=== PATIENT | male | born 1935 | race Caucasian/White ===

== ENCOUNTER 2019-03-11 09:00 | Observation (INO) | payer MEDICARE, SELFPAY ==
[2019-03-11] VITALS (10 sets, daily range): BP systolic 130–179; BP diastolic 72–88; PULSE 52–78; RESP 15–16; TEMP 36.5–37; O2SAT 9–98; BMI 22.8; BMI 22.4
--- NOTE | 2019-03-11 09:06 | RAD_ITS ---
STUDY: X-RAY CHEST REASON FOR EXAM: Male, 83 years old. Chest pressure TECHNIQUE: AP COMPARISON: 10/01/2015 FINDINGS: EKG leads project over the chest. Sternal wires and mitral valve implant noted. The lungs are clear and expanded. There is no demonstrated pleural abnormality. Normal size heart. Normal mediastinum and brittany. Normal visualized pulmonary arteries. There is atherosclerotic calcification of the aortic arch with tortuosity. There is demineralization of the osseous structures. There is degenerative osteoarthritis of the bilateral shoulders. There is no demonstrated abnormality of the visualized soft tissue structures of the upper abdomen. RAD/Chest 1 View (Portable) IMPRESSION: 1. Nonacute portable x-ray examination of the chest. Electronically Signed: Yifan You MD at 9:33 EDT , Service support ,
--- NOTE | 2019-03-11 09:06 | EKG12_ITS ---
Test Reason : CP Blood Pressure : / mmHG Vent. Rate : 073 BPM Atrial Rate : 073 BPM P-R Int : 152 ms QRS Dur : 098 ms QT Int : 438 ms P-R-T Axes : 080 -30 045 degrees QTc Int : 482 ms Sinus rhythm with frequent and consecutive Premature ventricular complexes Left axis deviation Incomplete right bundle branch block Prolonged QT Abnormal ECG Confirmed by BREE COLE, AUSTEN ([id number]), food editor JAZMYNE CAROLINA ([id number]) on 03/13/2019 2:02:46 PM Referred By: CHARLES Confirmed By:AUSTEN GIRON MD
[2019-03-11] MEDS: 0.9% Normal Saline 1,000 ML 15 ML IV (09:23)
[2019-03-11 09:36] LABS: Absolute Lymphocyte Count 1.35 X10^3/ul (0.83-4.51); Absolute Neutrophil Count 2.5 X10^3/uL (2.0-7.7); Basophil# 0.03 X10^3/uL; Basophil% 0.7 % (0-1); Eosinophil# 0.06 X10^3/uL; Eosinophils% 1.3 % (0-5); Hematocrit 43.4 % (40-54); Hemoglobin 15.2 g/dl (13.0-16.5); Lymphocyte # 1.35 X10^3/ul (4.0); Lymphocyte % 29.9 % (19-41); Mean Corpuscular Hgb 32.5 pg (27.0-32.0); Mean Corpuscular Volume 92.9 fL (80-94); Mean Platelet Vol. 11.3 fl (6.2-12.0); Monocyte# 0.57 X10^3/uL; Monocyte% 12.6 % (0-10); Neutrophil % 55.5 % (47-70); POSITIVE COUNT NO; POSITIVE DIFFERENTIAL NO; POSITIVE MORPHOLOGY NO; Platelet Count 218 K/mm3 (150-450); RBC Distribution Width CV 13.2 % (11.6-14.6); RBC Distribution Width SD 44.4 fl (35.1-43.9); Red Blood Count 4.67 M/mm3 (4.6-6.2); White Blood Count 4.5 K/mm3 (4.4-11.0)
[2019-03-11] MEDS: Morphine 4 MG/ML Syringe IV (09:42)
[2019-03-11] MEDS: Ondansetron ODT 4 MG Tablet PO (09:43)
[2019-03-11] MEDS: Lisinopril 20 MG Tablet PO (09:44)
[2019-03-11 09:54] LABS: Anion Gap 3 (5-15); BUN 14 mg/dL (7-18); BUN/Creat Ratio 14.9 RATIO (10-20); Calcium,Total 8.9 mg/dL (8.5-10.1); Chloride 107 mmol/L (98-107); Creatinine, Serum 0.94 mg/dL (0.70-1.30); EST Glomerular Filtration Rate 82 mL/min (>60); Est Glom Filt Rate - Afr Amer 99 mL/min (>60); Estimated Creatinine Clearance 55.62 ml/min; Glucose 88 mg/dL (74-106); Potassium 3.5 mmol/L (3.5-5.1); Sodium Level 139 mmol/L (136-145)
[2019-03-11 10:05] LABS: BNP,B-Type NATRIURETIC PEPTIDE 136.9 pg/mL (0-100)
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
--- NOTE | 2019-03-11 10:10 | NURSING ---
DR AKIKO VU
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
--- NOTE | 2019-03-11 10:16 | NURSING ---
PCU KITKIRSTEN OBS CP, POORLY CONTROLLED HYPERTENSION
--- NOTE | 2019-03-11 11:52 | EKG12_ITS ---
Test Reason : Blood Pressure : / mmHG Vent. Rate : 055 BPM Atrial Rate : 055 BPM P-R Int : 174 ms QRS Dur : 096 ms QT Int : 490 ms P-R-T Axes : 058 -23 037 degrees QTc Int : 468 ms Sinus bradycardia Nonspecific T wave abnormality Confirmed by DORY COLE, MARIFER ([id number]), brands editor STACY ZELAYA ([id number]) on 03/15/2019 1:08:05 PM Referred By: LINDA Confirmed By:MARIFER CONNORS MD
[2019-03-11] MEDS: Aspirin 81 MG TAB.CHEW 324 MG PO (14:06)
[2019-03-12] VITALS (7 sets, daily range): BP systolic 145–162; BP diastolic 75–92; PULSE 49–74; RESP 16–18; TEMP 36.5–36.6; O2SAT 95–99
[2019-03-12] MEDS: Aspirin E.C. 81 MG Tablet PO (05:01)
[2019-03-12] MEDS: Clopidogrel Bisulfate 75 MG Tablet PO (05:01)
[2019-03-12] MEDS: Lisinopril 20 MG Tablet PO (05:01)
--- NOTE | 2019-03-12 05:09 | EKG12_ITS ---
Test Reason : AM EKG Blood Pressure : / mmHG Vent. Rate : 050 BPM Atrial Rate : 050 BPM P-R Int : 166 ms QRS Dur : 100 ms QT Int : 496 ms P-R-T Axes : 053 -36 033 degrees QTc Int : 452 ms Sinus bradycardia with Premature atrial complexes Left axis deviation Incomplete right bundle branch block Abnormal ECG Confirmed by DORY COLE, MARIFER ([id number]), newspaper managing editor STACY ZELAYA ([id number]) on 03/15/2019 1:02:14 PM Referred By: DR WHARTON Confirmed By:MARIFER CONNORS MD
--- NOTE | 2019-03-12 05:55 | ECHOCS_ITS ---
Reason For Study: Chest Pain Procedure This was a 2D Doppler, Color Flow transthoracic echocardiogram. The study was technically difficult. Contrast injection was performed. Exam performed portable in patient room. Left Ventricle Normal LV size. Left ventricular systolic function is normal. The estimated ejection fraction is 55 %. Stage 2 diastolic dysfunction. No regional wall motion abnormalities noted. Right Ventricle Normal size and thickness. Normal systolic function. Atria Normal left atrium. Normal right atrium. Bubble contrast study negative for right to left interatrial shunt. Mitral Valve Normal mitral valve. Tricuspid Valve Normal tricuspid valve. Aortic Valve Trisinus/trileaflet aortic valve. Pulmonic Valve Normal pulmonic valve. Great Vessels Normal aortic root. The pulmonary artery is normal size. Normal inferior vena cava. Pericardium/Pleural No pericardial effusion. Medication Diluted definity 3ml given slow IV push to enhance endocardial definition. Performed a rapid injection of agitated mix of 9 cc saline and 1cc air to assess for atrial septal defect. MMode/2D Measurements & Calculations Ao root diam: 3.3 cm LAV(MOD-sp4): 70.8 ml LA A4 area: 20.2 cm2 RA A4 area: 15.7 cm2 Time Measurements MV dec time: 0.30 sec Doppler Measurements & Calculations MV E max andrew: 87.1 cm/sec Med Peak E' Andrew: 5.9 cm/sec MV V2 max: 105.6 cm/sec MV A max andrew: 73.0 cm/sec E/E' med: 14.7 MV max P.5 mmHg MV E/A: 1.2 MV V2 mean: 56.4 cm/sec MV mean P.5 mmHg MV V2 VTI: 40.5 cm MV P1/2t max andrew: 105.6 cm/sec Ao V2 max: 114.3 cm/sec LV V1 max: 96.7 cm/sec MV P1/2t: 69.6 msec Ao max P.2 mmHg LV V1 max P.7 mmHg MV dec slope: 444.1 cm/sec2 MVA(P1/2t): 3.2 cm2 MR max andrew: 313.7 cm/sec PA V2 max: 121.3 cm/sec MR max P.4 mmHg Interpretation Summary Normal LV size. Left ventricular systolic function is normal. The estimated ejection fraction is 55 %. Stage 2 diastolic dysfunction. Ordering Physician: Adarsh Fink Referring Physician: MUNIRA Smith M.D. Performed By: Wiliam Ackerman RCS
[2019-03-12 06:40] LABS: Anion Gap 5 (5-15); BUN 20 mg/dL (7-18); BUN/Creat Ratio 20.7 RATIO (10-20); Calcium,Total 8.5 mg/dL (8.5-10.1); Chloride 108 mmol/L (98-107); Creatinine, Serum 0.97 mg/dL (0.70-1.30); EST Glomerular Filtration Rate 79 mL/min (>60); Est Glom Filt Rate - Afr Amer 96 mL/min (>60); Estimated Creatinine Clearance 53.26 ml/min; Glucose 87 mg/dL (74-106); Magnesium 2.2 mg/dL (1.6-2.6); Potassium 4.1 mmol/L (3.5-5.1); Sodium Level 142 mmol/L (136-145)
[2019-03-12 06:51] LABS: Hemoglobin 13.8 g/dl (13.0-16.5); Mean Corp Hgb Conc 34.5 g/gl (32-36); Mean Corpuscular Hgb 32.3 pg (27.0-32.0); Mean Corpuscular Volume 93.7 fL (80-94); Mean Platelet Vol. 11.2 fl (6.2-12.0); Platelet Count 199 K/mm3 (150-450); RBC Distribution Width CV 13.2 % (11.6-14.6); RBC Distribution Width SD 45.2 fl (35.1-43.9); Red Blood Count 4.27 M/mm3 (4.6-6.2)
[2019-03-12 06:54] LABS: Scan Indicated on CBC? Y/N NO
[2019-03-12 06:55] LABS: International Normalized Ratio 1.1; Prothrombin Time (Protime)PT. 14.2 SECONDS (11.7-14.9)
[2019-03-12 06:56] LABS: Partial Thromboplast Time 32.6 Seconds (24.1-36.2)
--- NOTE | 2019-03-12 09:02 | STRESSREP ---
Stress Test Report Exercise myocardial perfusion stress test. 83-year-old male with a history of chest pain. Stress protocol: Resting EKG demonstrates normal sinus rhythm with a rate of 58 bpm premature ventricular complexes noted resting blood pressures 182/84 mmHg. The patient exercised according to regular Kain protocol for total duration of 4 minutes patient completed 1 minute into stage II of the Kain protocol the maximum heart rate attained was 130 bpm which was 93% of maximum predicted heart rate and maximum workload was 5.8 metabolic equivalents. The patient maintained sinus rhythm throughout the recording. There were frequent premature ventricular complexes noted. At rest there were no ST or T wave changes noted to suggest ischemia. There was one episode of ventricular triplet noted as well as 2 episodes of ventricular couplets present. During recovery the patient subsequently developed a right bundle branch block patent which subsequently normalized. The patient did experience moderate dyspnea. No chest pain was noted. The resting blood pressure was 182/84 with a peak blood pressure 194/80 mmHg Myocardial perfusion protocol. 11.4 mCi of technetium 99m sestamibi was injected at rest. The patient exercised according to regular Kain protocol for 4 minutes. At peak exercise 32.8 mCi of technetium 99m sestamibi was injected stress images were obtained stress and rest images were reconstructed and compared in the short axis vertical and horizontal long axis. Gated images were also obtained Perfusion SPECT analysis: Review of the stress images demonstrate normal uptake of tracer noted in all areas of the myocardium. The resting images similar demonstrate normal uptake of tracer noted in all areas of myocardium. No areas of reversibility are noted suggest ischemia no previous infarct is noted. Gated SPECT analysis: The gated ejection fraction is noted to be 50%. Conclusion: Normal exercise myocardial perfusion stress test with no evidence of ischemia at a moderate workload. Low normal ejection fraction. Ventricular dysrhythmias noted. Asymptomatic.
[2019-03-12] MEDS: Enoxaparin 40 MG/0.4 ML Syringe SC (09:43)
[2019-03-12] MEDS: Carvedilol 6.25 MG Tablet PO (09:43)
--- NOTE | 2019-03-12 15:44 | DCINST_ITS ---
- Discharge Diagnoses Current Active Problems: Current Active and Chronic Problems Accelerated hypertension (Acute) Chest pain (Acute) S/P CABG x 2 (Chronic) Status post mitral valve annuloplasty (Chronic) You will use the following diet at home:: No restrictions Your food should be the consistency of: Regular Your liquids should be the consistency of: Regular/Thin Discharge Activity: Return to Normal Activity Weight Bearing Status: Full weight bearing Allergies/Adverse Reactions: Allergies Iodinated Contrast- Oral and IV Dye [Iodinated Contrast Media - IV Dye] Allergy (Verified 03/11/19 09:04) Swelling Medications to take at Discharge Lisinopril 20 mg PO DAILY 03/11/19 Primary Care Physician: Tristan Smith III, MD [Primary Care Provider] - Please follow up with your Primary Care Physician in: in 1-2 weeks Test Results: Test results from this visit will be discussed in further detail at your follow- up appointment, if applicable.
--- NOTE | 2019-03-14 18:11 | DS.PCM_ITS ---
Discharge Date and Diagnosis Date of Admission: 03/11/19 Date of Discharge: 03/12/19 - Primary Discharge Diagnosis #1 musculoskeletal chest pain #2 coronary artery disease #3 essential hypertension #4 noncompliance with medical regimen #5 valvular heart disease-mitral valve annuloplasty history - Secondary Discharge Diagnosis Chronic Problems S/P CABG x 2 (Chronic) Status post mitral valve annuloplasty (Chronic) Hypertension (Chronic) CAD (coronary artery disease) (Chronic) Hospital Course and Treatment Operations: None Procedures: 2-D Echocardiogram, Nuclear stress test Summary of Care Provided: The patient is a 83 year old M seen in the emergency room at [facility] with chief complaint of chest pain. He also had been diagnosed with hypertension was given medication but is not taking it because he did not want to take medications. Patient had chest discomfort which he describes as chest pressure, he took his blood pressure and it was elevated so he came to the emergency room for evaluation. Evaluation in the emergency room included a chest x-ray which was unremarkable, EKG showed no evidence of ischemic changes, and labs were unremarkable. Patient's blood pressure in triage was 179/88. Patient was placed in observation status on PCU, cardiac enzymes are cycled and these were negative, patient underwent a nuclear stress test which showed no evidence of reversible ischemia. Patient had an echocardiogram performed which showed a normal ejection fraction and no evidence of valvular disease. On 03/12/2019, patient was seen and examined: On examination he appeared in good health and spirits. Vital signs as documented. Skin warm and dry and without overt rashes. Neck without JVD. Lungs clear. Heart exam notable for regular rhythm, normal sounds and absence of murmurs, rubs or gallops. Abdomen unremarkable and without evidence of organomegaly, masses, or abdominal aortic enlargement. Extremities nonedematous. Neuro: Cranial nerves II through XII are grossly intact, no focal motor deficits were noted, sensation to light touch and pinprick intact. Psych: Patient is alert and oriented x3, he does not appear anxious or depressed On 03/12/2019, patient was seen and examined and felt to be in stable condition for discharge home, he was cautioned to resume his blood pressure medication and follow-up with his PCP. - Physical Exam Vital Signs Temp Pulse Resp BP Pulse Ox 97.8 F 62 18 162/92 H 98 03/12/19 15:56 03/12/19 15:56 03/12/19 15:56 03/12/19 15:56 03/12/19 15:56 Oxygen Delivery Method Room Air Weight: 63.049 kg Body Mass Index (BMI) 22.4 Intake and Output for Last 24 Hours 03/12/19 03/13/19 03/14/19 23:59 23:59 23:59 Intake Total 790 / 790 Balance 790 / 790 Discharge Activity: Return to Normal Activity Weight Bearing Status: Full weight bearing Home Medications: Medications to take at Discharge Lisinopril 20 mg PO DAILY 03/11/19 Primary Care Physician: Tristan Smith III, MD [Primary Care Provider] - Please follow up with your Primary Care Physician in: in 1-2 weeks Disposition: Home Minutes spent on discharge:: 25 Patient Condition:: Stable Medical Necessity - Tobacco Use Smoking Status: Former smoker Meaningful Use Info Meaningful Use Diagnoses (Choose all that apply): None applicable Code Visit OBSV E&M: 26967 Observation care discharge
== END 2019-03-12 15:45 | disposition home or self-care (01) ==
LOC: ED 09:43 → PCU 10:58
PROVIDERS: Admitting Provider Internal Medicine; Emergency Provider Emergency Medicine; Family Provider Family Medicine; PCP Family Medicine; Visit Provider Internal Medicine
DX: R07.89 Other chest pain (principal); I10 Essential (primary) hypertension; I25.10 Atherosclerotic heart disease of native coronary artery without angina pectoris; Z87.891 Personal history of nicotine dependence; Z95.1 Presence of aortocoronary bypass graft; I48.0 Paroxysmal atrial fibrillation; Z91.19 Patient's noncompliance with other medical treatment and regimen; Z79.899 Other long term (current) drug therapy; I45.81 Long QT syndrome; I45.10 Unspecified right bundle-branch block; R06.00 Dyspnea, unspecified
CPT/HCPCS: 36415; 71045; 78452; 80048; 83735; 83880; 84484; 85025; 85027; 85610; 85730; 93005; 93017; 93306; 96372; 96374; 99218; 99285; A9500; J7030; Q9957; A4216; C8929; G0378

== ENCOUNTER → 2022-09-24 | Outpatient (CLI) | payer MEDICARE, SELFPAY ==
[2022-09-24 11:59] LABS: Bacteria 0 SEEN /hpf (None Seen); Mucous, Urine 0 SEEN /hpf (<or=2+); Red Blood Cells-Urine 0 SEEN /hpf (0-5); Squamous Epithelial Cells - UA 0 SEEN /hpf (0-5)
[2022-09-24 15:29] LABS: Absolute Lymphocyte Count 1.08 X10^3/uL (0.83-4.51); Absolute Neutrophil Count 3.6 X10^3/uL (2.0-7.7); Basophil# 0.04 X10^3/uL; Basophil% 0.7 % (0-1); Eosinophil# 0.04 X10^3/uL; Eosinophils% 0.7 % (0-5); Hematocrit 41.3 % (40-54); Hemoglobin 13.7 g/dL (13.0-16.5); Lymphocyte # 1.08 X10^3/ul (0.83-4.51); Lymphocyte % 19.8 % (19-41); Mean Corp Hgb Conc 33.2 g/dL (32-36); Mean Corpuscular Volume 96.5 fL (80-94); Mean Platelet Vol. 11.9 fl (6.2-12.0); Monocyte# 0.65 X10^3/uL; Monocyte% 11.9 % (0-10); NRBC Flagged by Analyzer 0 % (0-5); Neutrophil # 3.63 X10^3/uL (2.7-7.7); Neutrophil % 66.7 % (47-70); Platelet Count 219 K/mm3 (150-450); RBC Distribution Width CV 13.7 % (11.6-14.6); RBC Distribution Width SD 48.7 fl (35.1-43.9); Red Blood Count 4.28 M/mm3 (4.6-6.2); White Blood Count 5.5 K/mm3 (4.4-11.0)
[2022-09-24 16:01] LABS: Color, Urine Yellow (Yellow); Glucose, Dipstick Normal (Normal); Ketone-Dipstick 15 mg/dl (Negative); Leukocyte Esterase-Dipstick 25 /ul (Negative); Nitrite-Dipstick Negative (Negative); Occult Blood-Urine Negative /ul (Negative); Protein-Dipstick Negative (Negative); Specific Gravity, Urine 1.015 (1.002-1.030); Urine Bilirubin Dipstick Negative (Negative); Urine Clarity Clear (Clear); Urine Urobilinogen Normal (Normal); Urine pH 6.5 (5.0 - 8.0)
[2022-09-24 16:16] LABS: ALB/GLOB Ratio 1.1 RATIO (0.9-2.4); AST(SGOT) 21 U/L (15-37); Alanine Aminotransfer ALT/SGPT 25 U/L (16-61); Albumin, Serum 3.6 g/dL (3.2-5.0); Alkaline Phosphatase 80 U/L (45-117); Anion Gap 6 (5-15); BUN 23 mg/dL (7-18); BUN/Creat Ratio 22.1 RATIO (10-20); Chloride 106 mmol/L (98-107); Cholesterol 160 mg/dL (200); Creatinine, Serum 1.04 mg/dL (0.70-1.30); EST Glomerular Filtration Rate 72 mL/min (>60); Est Glom Filt Rate - Afr Amer 87 mL/min (>60); Globulin 3.4 g/dL (2.2-4.2); Glucose 80 mg/dL (74-106); High Density Lipoprotein 62 mg/dL; Magnesium 2.2 mg/dL (1.6-2.6); Potassium 4.3 mmol/L (3.5-5.1); Sodium Level 141 mmol/L (136-145); T4 Free Direct 0.97 ng/dL (0.76-1.46); Triglycerides 87 mg/dL; Very Low Density Lipoprotein 17 mg/dL (5-40)
[2022-09-24 17:54] LABS: White Blood Cells 0-5 SEEN /hpf (0-5)
== END | disposition home or self-care (01) ==
LOC: MFPLAB 11:57
PROVIDERS: PCP Family Medicine; Referring Provider Family Medicine; Visit Provider Family Medicine
DX: I10 Essential (primary) hypertension (principal); E04.1 Nontoxic single thyroid nodule
CPT/HCPCS: 36415; 80053; 80061; 81001; 83735; 84439; 84443; 85025

== ENCOUNTER → 2022-09-29 | Outpatient (CLI) | payer MEDICARE, SELFPAY ==
--- NOTE | 2022-09-29 12:51 | US_ITS ---
STUDY: THYROID ULTRASOUND REASON FOR EXAM: Male, 86 years old. THYROID NODULE felt by doctor -- no previous TECHNIQUE: Ultrasound evaluation of the thyroid was performed with real-time and static khan-scale imaging. COMPARISON: None. FINDINGS: RIGHT LOBE: The right lobe of the thyroid gland measures 4.6 cm x 1.8 sign by 1.4 cm. There is a homogeneous echotexture. There are no demonstrated solid, cystic or complex lesions. LEFT LOBE: The left lobe of the thyroid gland measures 4.3 cm x 1.6 cm x 1.6 cm. There is a homogeneous echotexture. There are no demonstrated solid, cystic or complex lesions. ISTHMUS: The isthmus measures 3 mm. The regional lymph nodes are normal. US/Thyroid IMPRESSION: Normal ultrasound examination of the thyroid. Electronically Signed: Aj Canchola MD at 14:33 EST ,
== END | disposition home or self-care (01) ==
PROVIDERS: PCP Family Medicine; Referring Provider Family Medicine; Visit Provider Family Medicine
DX: E04.1 Nontoxic single thyroid nodule (principal); R06.02 Shortness of breath
CPT/HCPCS: 76536

== ENCOUNTER → 2022-10-06 | Outpatient (CLI) | payer MEDICARE, SELFPAY ==
--- NOTE | 2022-10-06 07:03 | ECHOD_ITS ---
Reason For Study: SOB Procedure This was a 2D Doppler, Color Flow transthoracic echocardiogram. Exam performed in department. Left Ventricle Normal LV size. The estimated ejection fraction is 25 %. Moderately severe global left ventricular systolic dysfunction. Stage 3 diastolic dysfunction. Right Ventricle Normal RV size. Normal systolic function. Atria The left atrium is moderately enlarged. The right atrium is mildly enlarged. Mitral Valve Bileaflet diffuse mitral valve thickening. Mild-Moderate (1-2+) mitral valve insufficiency. Status post mitral valve repair with annuloplasty ring. Tricuspid Valve Normal tricuspid valve. Pulmonary artery systolic pressure is 60 mmHg. Moderate pulmonary hypertension. Aortic Valve Trisinus/trileaflet aortic valve. Mild focal aortic valve calcification. Mild (1+) aortic valve insufficiency. Pulmonic Valve Normal pulmonic valve. Great Vessels Normal aortic root. The pulmonary artery is normal size. Normal inferior vena cava. Pericardium/Pleural No pericardial effusion. MMode/2D Measurements & Calculations LVIDd: 5.4 cm IVSd: 1.1 cm LVOT diam: 2.1 cm LVIDs: 4.8 cm LVPWd: 1.1 cm LVOT area: 3.4 cm2 RVDd: 3.3 cm FS: 11.0 % Ao root diam: 3.0 cm LAV(MOD-sp4): 71.0 ml LVAd ap4: 36.8 cm2 LVLd ap4: 8.6 cm EDV(MOD-sp4): 128.2 ml EDV(sp4-el): 133.9 ml LVAs ap4: 23.9 cm2 LVLs ap4: 7.0 cm ESV(MOD-sp4): 68.9 ml ESV(sp4-el): 69.6 ml EF(MOD-sp4): 46.3 % EF(sp4-el): 48.0 % SV(MOD-sp4): 59.3 ml SV(sp4-el): 64.3 ml LA A4 area: 21.2 cm2 LA dimension(2D): 4.7 cm RA A4 area: 17.4 cm2 Time Measurements MV dec time: 0.19 sec Doppler Measurements & Calculations MV E max andrew: 125.6 cm/sec Lat Peak E' Andrew: 5.9 cm/sec Med Peak E' Andrew: 5.0 cm/sec MV A max andrew: 39.8 cm/sec E/E' lat: 21.4 E/E' med: 24.9 MV E/A: 3.2 MV V2 max: 122.7 cm/sec Ao V2 max: 101.3 cm/sec MV max P.0 mmHg MV dec slope: 681.6 cm/sec2 Ao max P.4 mmHg MV V2 mean: 67.2 cm/sec Ao V2 mean: 69.0 cm/sec MV mean P.1 mmHg Ao mean P.3 mmHg MV V2 VTI: 35.5 cm Ao V2 VTI: 20.2 cm AV (velocity ratio): 0.72 MVA(VTI): 1.4 cm2 GARCIA(I,D): 2.5 cm2 GARCIA(V,D): 2.5 cm2 LV V1 max: 74.3 cm/sec MR max andrew: 491.8 cm/sec SV(LVOT): 50.3 ml LV V1 max P.2 mmHg MR max P.8 mmHg LV V1 mean P.3 mmHg MR mean andrew: 381.3 cm/sec LV V1 mean: 53.4 cm/sec MR mean P.5 mmHg LV V1 VTI: 14.6 cm MR VTI: 180.1 cm TR max andrew: 366.5 cm/sec TR max P.7 mmHg ECHO/Echo Complete Interpretation Summary Normal LV size. The estimated ejection fraction is 25 %. Moderately severe global left ventricular systolic dysfunction. Stage 3 diastolic dysfunction. Mild-Moderate (1-2+) mitral valve insufficiency. Status post mitral valve repair with annuloplasty ring. Mild (1+) aortic valve insufficiency. Compared to previous study, the left ventricular systolic function has worsened .. Ordering Physician: Vinod Mejia Referring Physician: Vinod Mejia Performed By: Elena Zavala RCS
--- NOTE | 2022-10-06 16:33 | STRESSREP_ITS ---
Stress Test Report Exercise myocardial perfusion stress test. 86-year-old man with a history of abnormal EKG Stress protocol: Resting EKG demonstrates normal sinus rhythm with a rate of 63 bpm and frequent premature ventricular complexes: Resting blood pressure is 142/82 mmHg. The patient exercised according to the regular Kain protocol for a total duration of 3 minutes and 46 seconds attaining a maximum heart rate of 114 bpm which was 83% of maximum predicted heart rate; the maximum workload was 6.4 metabolic equivalents. At rest there were no ST or T wave changes noted to suggest ischemia and at peak exercise upsloping ST changes only were noted which did not meet the criteria for ischemia. Frequent premature ventricular complexes were noted with one episode of couplet activity noted and one triplet activity noted. No clinical angina was noted the test was terminated due to the target heart rate being achieved/fatigue. The peak blood pressure was 162/80 mmHg. Rate- pressure product was 17,500. Myocardial perfusion protocol. 11.7 mCi of technetium 99m sestamibi was injected at rest. The patient exercised according to regular Kain protocol for total duration of 3 minutes and 46 seconds and at peak exercise 33.3 mCi of technetium 99m sestamibi was injected stress images were obtained stress and rest images were reconstructed in comparing the short axis vertical long and horizontal long axis. Gated images were also obtained. Perfusion SPECT analysis: Review of the stress images demonstrate normal uptake of tracer noted in all areas of the myocardium. The resting images similarly demonstrate normal uptake of tracer noted in all areas of the myocardium. No areas of reversibility are noted to suggest ischemia no previous infarct was noted. Gated SPECT analysis: The gated ejection fraction is 38%. Conclusion: Normal exercise myocardial perfusion stress test at a low to moderate workload. The sensitivity of the workload may affect the sensitivity for detection of ischemia. Reduced ejection fraction. Frequent premature ventricular complexes noted
== END | disposition home or self-care (01) ==
PROVIDERS: PCP Family Medicine; Visit Provider Family Medicine
DX: R94.31 Abnormal electrocardiogram [ECG] [EKG] (principal); R06.02 Shortness of breath; E04.1 Nontoxic single thyroid nodule
CPT/HCPCS: 78452; 93017; 93306; A9500; A4216

== ENCOUNTER → 2022-11-03 | Outpatient (CLI) | payer MEDICARE, SELFPAY ==
--- NOTE | 2022-11-03 08:57 | MRI_ITS ---
HISTORY: DYSDIADOCHOKINESIA. TECHNIQUE: Multiplanar and multisequence MR images of the brain were obtained before and after the intravenous administration of 13 mL Dotarem. 343 images. COMPARISON: None. FINDINGS: BRAIN PARENCHYMA: Mild foci and small zones of increased T2 FLAIR signal in the bilateral central white matter. No enhancing lesion in the brain parenchyma. 4 mm neuroglial cyst in the medial temporal lobe adjacent to the left temporal horn. No abnormal focus of restricted diffusion. No acute intracranial hemorrhage identified. CSF SPACES: Mild generalized volume loss. No significant midline shift or other mass effect.No extra-axial fluid collection. VASCULAR SYSTEM: Major intracranial flow voids are maintained. PARANASAL SINUSES AND MASTOID AIR CELLS: No significant air fluid levels. Mild mucosal thickening of the ethmoid air cells. ORBITS: Symmetric contents. MRI/Brain W/WO Contrast IMPRESSION: No evidence for enhancing intracranial mass or acute infarct. Mild chronic involutional and white matter changes. Electronically Signed: Mariangel Gonzalez MD at 10:14 EST ,
[2022-11-03 09:36] LABS: CREATININE FINGERSTICK < 0.9 mg/dL (0.70-1.30); EGFR FINGERSTICK > 60.0000 mL/min (>60)
== END | disposition home or self-care (01) ==
PROVIDERS: PCP Family Medicine; Referring Provider Family Medicine; Visit Provider Family Medicine
DX: R27.8 Other lack of coordination (principal)
CPT/HCPCS: 70553; A9575

== ENCOUNTER → 2023-02-15 | Outpatient (CLI) | payer MEDICARE, SELFPAY ==
[2023-02-15 15:39] LABS: Absolute Lymphocyte Count 1.37 X10^3/uL (0.83-4.51); Absolute Neutrophil Count 3.6 X10^3/uL (2.0-7.7); Basophil# 0.05 X10^3/uL; Basophil% 0.9 % (0-1); Eosinophil# 0.13 X10^3/uL; Eosinophils% 2.2 % (0-5); Hematocrit 43.9 % (40-54); Hemoglobin 14.4 g/dL (13.0-16.5); Lymphocyte # 1.37 X10^3/ul (0.83-4.51); Lymphocyte % 23.3 % (19-41); Mean Corp Hgb Conc 32.8 g/dL (32-36); Mean Corpuscular Hgb 32.7 pg (27.0-32.0); Mean Corpuscular Volume 99.5 fL (80-94); Mean Platelet Vol. 11.3 fl (6.2-12.0); Monocyte# 0.75 X10^3/uL; Monocyte% 12.8 % (0-10); NRBC Flagged by Analyzer 0 % (0-5); Neutrophil # 3.55 X10^3/uL (2.7-7.7); Neutrophil % 60.5 % (47-70); Platelet Count 229 K/mm3 (150-450); RBC Distribution Width CV 12.8 % (11.6-14.6); RBC Distribution Width SD 47.4 fl (35.1-43.9); Red Blood Count 4.41 M/mm3 (4.6-6.2); White Blood Count 5.9 K/mm3 (4.4-11.0)
[2023-02-15 16:09] LABS: BNP,B-Type NATRIURETIC PEPTIDE 569.3 pg/mL (0-100)
[2023-02-15 16:11] LABS: AST(SGOT) 21 U/L (15-37); Alanine Aminotransfer ALT/SGPT 24 U/L (16-61); Albumin, Serum 3.5 g/dL (3.2-5.0); Alkaline Phosphatase 68 U/L (45-117); Anion Gap 4 (5-15); BUN 20 mg/dL (7-18); BUN/Creat Ratio 19.6 RATIO (10-20); Calcium,Total 8.6 mg/dL (8.5-10.1); Chloride 107 mmol/L (98-107); Cholesterol 161 mg/dL (200); Creatinine, Serum 1.02 mg/dL (0.70-1.30); EST Glomerular Filtration Rate 74 mL/min (>60); Est Glom Filt Rate - Afr Amer 89 mL/min (>60); Globulin 3.4 g/dL (2.2-4.2); Glucose 83 mg/dL (74-106); High Density Lipoprotein 58 mg/dL; Potassium 4.3 mmol/L (3.5-5.1); Protein, Total 6.9 g/dL (6.4-8.2); Sodium Level 139 mmol/L (136-145); Triglycerides 91 mg/dL; Very Low Density Lipoprotein 18 mg/dL (5-40)
== END | disposition home or self-care (01) ==
LOC: MFPLAB 12:33
PROVIDERS: PCP Family Medicine; Visit Provider Family Medicine
DX: I50.20 Unspecified systolic (congestive) heart failure (principal); I25.10 Atherosclerotic heart disease of native coronary artery without angina pectoris
CPT/HCPCS: 36415; 80053; 80061; 83880; 85025

== ENCOUNTER → 2023-02-18 | Outpatient (CLI) | payer MEDICARE, SELFPAY ==
--- NOTE | 2023-02-18 07:56 | ECHOD_ITS ---
Reason For Study: Heart Failure Procedure This was a 2D Doppler, Color Flow transthoracic echocardiogram. Exam performed in department. Left Ventricle Normal LV size. The estimated ejection fraction is 50 %. Unable to assess diastolic dysfunction. Mild septal hypokinesis. Right Ventricle Normal RV size. Normal systolic function. Atria The left atrium is mildly enlarged. Normal right atrium. No doppler evidence for ASD. Mitral Valve There is moderate mitral annular calcification. There is no mitral valve stenosis. Mild (1+) mitral valve insufficiency. Tricuspid Valve There is no tricuspid stenosis. Trivial tricuspid valve insufficiency. Pulmonary artery systolic pressure is 45 mmHg. Aortic Valve Trisinus/trileaflet aortic valve. Mild diffuse aortic valve thickening. There is no aortic stenosis. Mild (1+) aortic valve insufficiency. Pulmonic Valve There is no pulmonic valvular stenosis. No pulmonic valve insufficiency. MMode/2D Measurements & Calculations LVIDd: 6.1 cm IVSd: 0.92 cm LVOT diam: 2.0 cm LVIDs: 5.3 cm LVPWd: 0.92 cm LVOT area: 3.3 cm2 RVDd: 4.4 cm FS: 13.8 % Ao root diam: 3.3 cm LAV(MOD-sp4): 66.6 ml LA dimension: 4.3 cm LVAd ap4: 33.9 cm2 LVLd ap4: 8.5 cm EDV(MOD-sp4): 111.4 ml EDV(sp4-el): 114.0 ml LVAs ap4: 25.6 cm2 LVLs ap4: 7.3 cm ESV(MOD-sp4): 75.3 ml ESV(sp4-el): 75.9 ml EF(MOD-sp4): 32.5 % EF(sp4-el): 33.4 % SV(MOD-sp4): 36.2 ml SV(sp4-el): 38.0 ml LA A4 area: 21.0 cm2 RA A4 area: 19.8 cm2 Time Measurements MV dec time: 0.28 sec Doppler Measurements & Calculations MV E max andrew: 109.5 cm/sec Lat Peak E' Andrew: 8.5 cm/sec Med Peak E' Andrew: 6.2 cm/sec MV A max andrew: 41.7 cm/sec E/E' lat: 12.8 E/E' med: 17.7 MV E/A: 2.6 MV V2 max: 124.1 cm/sec MV P1/2t max andrew: 124.9 cm/sec Ao V2 max: 151.6 cm/sec MV max P.2 mmHg MV P1/2t: 82.2 msec Ao max P.3 mmHg MV V2 mean: 58.5 cm/sec Ao V2 mean: 102.4 cm/sec MV mean P.7 mmHg MV dec slope: 445.0 cm/sec2 Ao mean P.9 mmHg MV V2 VTI: 33.2 cm MVA(P1/2t): 2.7 cm2 Ao V2 VTI: 34.3 cm AV (velocity ratio): 0.62 MVA(VTI): 2.1 cm2 GARCIA(I,D): 2.0 cm2 GARCIA(V,D): 2.4 cm2 AI max andrew: 313.3 cm/sec LV V1 max: 109.5 cm/sec MR max andrew: 545.6 cm/sec AI max P.5 mmHg LV V1 max P.8 mmHg MR max P.1 mmHg AI dec slope: 156.6 cm/sec2 LV V1 mean P.6 mmHg MR mean andrew: 431.1 cm/sec AI P1/2t: 586.1 msec LV V1 mean: 73.5 cm/sec MR mean P.6 mmHg LV V1 VTI: 21.4 cm MR VTI: 203.6 cm SV(LVOT): 70.1 ml PA V2 max: 123.4 cm/sec TR max andrew: 319.3 cm/sec PA V2 mean: 79.8 cm/sec TR max P.8 mmHg ECHO/Echo Complete Interpretation Summary The estimated ejection fraction is 50 %. Unable to assess diastolic dysfunction. Mild septal hypokinesis Mild (1+) mitral valve insufficiency. Mild (1+) aortic valve insufficiency. Ordering Physician: Vinod Mejia Referring Physician: Vinod Mejia Performed By: Wiliam Ackerman RCS
== END | disposition home or self-care (01) ==
PROVIDERS: PCP Family Medicine; Referring Provider Family Medicine; Visit Provider Family Medicine
DX: R06.02 Shortness of breath (principal); I50.20 Unspecified systolic (congestive) heart failure
CPT/HCPCS: 93306

== ENCOUNTER → 2023-06-10 | Outpatient (CLI) | payer MEDICARE, SELFPAY ==
[2023-06-10 16:43] LABS: Bacteria 0 SEEN /hpf (None Seen); Mucous, Urine 0 SEEN /hpf (<or=2+); Red Blood Cells-Urine 0 SEEN /hpf (0-5); Squamous Epithelial Cells - UA 0 SEEN /hpf (0-5); White Blood Cells 0 SEEN /hpf (0-5)
[2023-06-10 17:34] LABS: Absolute Neutrophil Count 3.1 X10^3/uL (2.0-7.7); Basophil# 0.04 X10^3/uL; Basophil% 0.7 % (0-1); Eosinophil# 0.09 X10^3/uL; Eosinophils% 1.7 % (0-5); Hemoglobin 13.9 g/dL (13.0-16.5); Lymphocyte % 27.7 % (19-41); Mean Corp Hgb Conc 33.1 g/dL (32-36); Mean Corpuscular Hgb 32.2 pg (27.0-32.0); Mean Corpuscular Volume 97.2 fL (80-94); Mean Platelet Vol. 11.2 fl (6.2-12.0); Monocyte# 0.68 X10^3/uL; Monocyte% 12.5 % (0-10); NRBC Flagged by Analyzer 0 % (0-5); Neutrophil % 57.2 % (47-70); Platelet Count 242 K/mm3 (150-450); RBC Distribution Width CV 13.7 % (11.6-14.6); RBC Distribution Width SD 49.3 fl (35.1-43.9); Red Blood Count 4.32 M/mm3 (4.6-6.2); White Blood Count 5.4 K/mm3 (4.4-11.0)
[2023-06-10 17:36] LABS: Color, Urine Yellow (Yellow); Glucose, Dipstick Normal (Normal); Ketone-Dipstick Negative (Negative); Leukocyte Esterase-Dipstick Negative /ul (Negative); Nitrite-Dipstick Negative (Negative); Occult Blood-Urine Negative /ul (Negative); Protein-Dipstick Negative (Negative); Urine Bilirubin Dipstick Negative (Negative); Urine Clarity Clear (Clear); Urine Urobilinogen Normal (Normal)
[2023-06-10 18:40] LABS: AST(SGOT) 19 U/L (15-37); Alanine Aminotransfer ALT/SGPT 25 U/L (16-61); Albumin, Serum 3.7 g/dL (3.2-5.0); Alkaline Phosphatase 76 U/L (45-117); Anion Gap 7 (5-15); BUN 25 mg/dL (7-18); BUN/Creat Ratio 24.3 RATIO (10-20); Calcium,Total 8.8 mg/dL (8.5-10.1); Chloride 109 mmol/L (98-107); Cholesterol 156 mg/dL (200); Creatinine, Serum 1.03 mg/dL (0.70-1.30); EST Glomerular Filtration Rate 73 mL/min (>60); Est Glom Filt Rate - Afr Amer 88 mL/min (>60); Globulin 3.7 g/dL (2.2-4.2); Glucose 87 mg/dL (74-106); High Density Lipoprotein 57 mg/dL; Magnesium 2.4 mg/dL (1.6-2.6); Potassium 3.8 mmol/L (3.5-5.1); Protein, Total 7.4 g/dL (6.4-8.2); Sodium Level 141 mmol/L (136-145); Thyroid Stim Hormone (TSH) 1.87 uIU/mL (0.358-3.74); Triglycerides 91 mg/dL; Very Low Density Lipoprotein 18 mg/dL (5-40)
== END | disposition home or self-care (01) ==
LOC: MFPLAB 16:37
PROVIDERS: PCP Family Medicine; Visit Provider Family Medicine
DX: I25.10 Atherosclerotic heart disease of native coronary artery without angina pectoris (principal); I48.0 Paroxysmal atrial fibrillation
CPT/HCPCS: 36415; 80053; 80061; 81001; 83735; 84443; 85025

== ENCOUNTER → 2023-09-06 | Outpatient (CLI) | payer MEDICARE, SELFPAY ==
--- OUTSIDE RECORDS SUMMARY | 2023-09-06 12:56 | XMS RPT_ITS | CCD ---
Author Name Unknown Address [id number] [place] [address] Organization [facility] Care Team Providers Care Curing Supervisor Name Role Phone FALGUNI MONROY Unavailable Unavailable FALGUNI MONROY Unavailable Unavailable RONALDO VINSON III Unavailable Unavailable Unavailable Primary Care Provider Unavailabl e Allergies Allergy Classification Reported Allergen(s) Allergy Type Date of Onset Reaction(s) Facility (1 source) Iodine Drug Allergy 09-01-2015 Rash [facility] Medications Completed/Discontinued Medications Medication Drug Class(es) Dates Sig (Normalized) Sig (Original) cyclobenzaprine hydrochloride 10 mg oral tablet (2 sources) Muscle Relaxant Start: 11-17-2019 take 1 tablet by mouth every eight hours as needed cyclobenzaprine (FLEXERIL) 10 mg tablet Take 1 tablet by mouth three times daily as needed for Muscle Spasm. 15 tablet 0 01/26/2021 Active Problems Active Problems Problem Classification Problem Date Documented Date Episodic/Chronic Adjustment disorders (1 source) Mixed anxiety and depressive disorder; Translations: [Adjustment disorder with mixed anxiety and depressed mood] Onset: 09-01-2015 09-01-2015 Chronic Anxiety disorders (1 source) Generalized anxiety disorder; Translations: [Generalized anxiety disorder] Onset: 09-22-2007 09-22-2007 Chronic Cardiac dysrhythmias (1 source) Atrial fibrillation; Translations: [Unspecified atrial fibrillation] Onset: 05-04-2018 05-04-2018 Chronic Coronary atherosclerosis and other heart disease (1 source) Coronary arteriosclerosis; Translations: [Atherosclerotic heart disease of [place] coronary artery without angina pectoris] Onset: 05-04-2018 05-04-2018 Chronic Esophageal disorders (1 source) Gastroesophageal reflux disease; Translations: [Gastro-esophageal reflux disease without esophagitis] Onset: 11-30-2005 11-30-2005 Chronic Essential hypertension (2 sources) Benign essential hypertension; Translations: [Essential (primary) hypertension] Onset: 08-23-2012 08-23-2012 Chronic Heart valve disorders (1 source) History of mitral valve replacement; Translations: [Presence of prosthetic heart valve] Onset: 11-13-2015 09-14-2016 Chronic Hyperplasia of prostate (1 source) Benign prostatic hypertrophy with outflow obstruction; Translations: [Benign prostatic hyperplasia with lower urinary tract symptoms] Onset: 01-15-2010 01-05-2018 Chronic Other connective tissue disease (1 source) History of repair of hip joint; Translations: [Presence of unspecified artificial hip joint] Onset: 05-03-2002 05-04-2018 Chronic Spondylosis; intervertebral disc disorders; other back problems (1 source) Degeneration of lumbar intervertebral disc; Translations: [Other intervertebral disc degeneration, lumbar region] Onset: 02-12-2016 02-12-2016 Chronic Unclassified (1 source) Unknown / UNK(Unknown) Onset: 03-15-2017 Past or Other Problems Problem Classification Problem Date Documented Da te Episodic/Chronic Fracture of neck of femur (hip) (1 source) Closed fracture of trochanter of femur; Translations: [Unspecified trochanteric fracture of unspecified femur, initial encounter for closed fracture] Onset: 05-03-2002 05-04-2018 Episodic Other acquired deformities (1 source) Acquired unequal leg length; Translations: [Unequal limb length (acquired), unspecified site] Onset: 05-03-2002 05-04-2018 Episodic Spondylosis; intervertebral disc disorders; other back problems (2 sources) Brachial neuritis; Translations: [Radiculopathy, cervical region] Onset: 05-03-2002 05-04-2018 Episodic Sprains and strains (1 source) Strain of tendon of medial thigh muscle; Translations: [Strain of adductor muscle, fascia and tendon of unspecified thigh, initial encounter] Onset: 01-05-2018 01-05-2018 Episodic Unclassified (1 source) Z51.81,I10,I25.810 Onset: 03-15-2017 Results Test Name Value Interpretation Reference Range Facil ity Encounters Encounter Date Encounter Type Care Provider Facility Start: 08-24-2023 Telephone encounter Yannick Tovar MD Work Phone: General Surgery Plan of Treatment Date Care Activity Detail Author Start: 05-06-2023 Covid-19 Vaccine ( season) Covid-19 Vaccine ( season) [facility] Start: 05-06-2023 Influenza vaccination Influenza Vacc ine (#1) [facility] Start: 10-05-2022 Diabetes Screening Diabetes Screenin g [facility] Start: 09-05-2022 Advance Directive Discussion Advance Directive Discussion [facility] Start: 10-02-2020 Hepatitis B surface antibody level LDL Cholesterol [facility] Start: 04-29-2019 Urine microalbumin profile DTa P,Tdap,Td Vaccine (2 - Td or Tdap) [facility] Start: 1997 RSV Vaccine (1 - 1-d ose 60+ series) RSV Vaccine (1 - 1-dose 60+ series) [facility] Start: 11-10-1987 Shingrix Vaccine (1 of 2) Lopez grix Vaccine (1 of 2) [facility] Immunizations Immunization Date Immunization Notes Care Provider Fa cility 01-05-2018 pneumococcal conjuga te vaccine, 13 valent Yannick Tovar MD Work Phone: [facility] 09-14-2016 influenza virus vacc ine, unspecified formulation Yannick Tovar MD Work Phone: [facility] 04-28-2009 pneumococcal polysaccharide vaccine, 23 valent Yannick Tovar MD Work Phone: [facility] Work Phone: 04-28-2009 tetanus and diphther ia toxoids, adsorbed, preservative free, for adult use (2 Lf of tetanus toxoid and 2 Lf of diphtheria toxoid) Yannick Tovar MD Work Phone: [facility] Work Phone: Payers Date Payer Category Payer Unknown [id number] 2014 Unknown [employer]IM[employer]IME [employer] HMO POS [id number] 2014-Present [phone] [address] [place] [address] O [id number] Social History Date Type Detail Facility Start: 04-01-2011 Tobacco smoking stat [facility] Never smoked tobacco [facility] Start: 04-01-2011 Tobacco use and exposure Smoke less tobacco non-user [facility] Start: 04-04-2021 Alcohol intake Current non-dr social services assistant of alcohol (finding) [facility] Start: 08-12-2020 End: 04-04-2021 History of Social function [facility] Start: 08-12-2020 End: 04-04-2021 Tobacco use panel [facility] Adult Depression Scr eening Assessment 0 [facility] Start: 1935 Sex Assigned At Not on file [facility] Note 08-24-2023 Telephone Encounter - Keyonna Conley LPN - 08/24/2023 11:41 AM EST Note Date & Type Note Facility 08-24-2023 Miscellaneous Notes Formattin g of this note might be different from the original. Fax received from [facility] asking for Derm pathology. See scanned documents for request. This has been faxed to the office as requested. documented in this encounter [facility] History of Past illness Narrative 06-05-2015 Note Date & Type Note Facility documented as of this encounter (statuses as of 08/25/2023) [facility] Summary Purpose Family History No Family History Records FoundNo Family History Records Found Advance Directives No Advanced Directives Records FoundNo Advanced Directives Records Found Additional Source Comments (unrecognized sect ion and content) No Status Records FoundNo Status Records Found INFORMATION SOURCE (unrecogn ized section and content) DATE CREATED AUTHOR AUTHOR'S ORGANIZ ATION 08/25/2023 [facility] Source Comments (unrecognize d section and content) In the event this informatio n is protected by the Federal Confidentiality of Alcohol and Drug Abuse Patient Records regulations: The Federal rules restrict any use of the information to criminally investigate or prosecute any alcohol or drug abuse patient.[facility] Reason for Visit (unrecogniz ed section and content) FOR RECORDS PERTAINING TO PATIENTS WHO ARE OR HAVE BEEN ENROLLED IN A CHEMICAL DEPENDENCY/SUBSTANCEABUSE PROGRAM, SOME INFORMATION MAY BE OMITTED. This clinical summary was aggregated from multiple sources. Caution should be exercised in using it in the provision of clinical care. This summary normalizes information from multiple sources, and as a consequence, information in this document may materially change the coding, format and clinical context of patient data. In addition, data may be omitted in some cases. CLINICAL DECISIONS SHOULD BE BASED ON THE PRIMARY CLINICAL RECORDS. [facility] [employer] [facility]. provides no warranty or guarantee of the accuracy or completeness of information in this document.
[2023-09-06 14:06] LABS: Bacteria 0 SEEN /hpf (None Seen); Mucous, Urine 0 SEEN /hpf (<or=2+); Red Blood Cells-Urine 0 SEEN /hpf (0-5); Squamous Epithelial Cells - UA 0 SEEN /hpf (0-5); White Blood Cells 0 SEEN /hpf (0-5)
[2023-09-06 15:15] LABS: Color, Urine Straw (Yellow); Glucose, Dipstick Normal (Normal); Ketone-Dipstick Negative (Negative); Leukocyte Esterase-Dipstick Negative /ul (Negative); Nitrite-Dipstick Negative (Negative); Occult Blood-Urine Negative /ul (Negative); Protein-Dipstick Negative (Negative); Specific Gravity, Urine 1.005 (1.002-1.030); Urine Bilirubin Dipstick Negative (Negative); Urine Clarity Clear (Clear); Urine Urobilinogen Normal (Normal)
[2023-09-06 15:15] LABS: Absolute Neutrophil Count 3.7 X10^3/uL (2.0-7.7); Basophil# 0.04 X10^3/uL; Basophil% 0.7 % (0-1); Eosinophil# 0.14 X10^3/uL; Eosinophils% 2.5 % (0-5); Hematocrit 43.7 % (40-54); Hemoglobin 14.7 g/dL (13.0-16.5); Lymphocyte % 19.4 % (19-41); Mean Corp Hgb Conc 33.6 g/dL (32-36); Mean Corpuscular Hgb 32.1 pg (27.0-32.0); Mean Corpuscular Volume 95.4 fL (80-94); Mean Platelet Vol. 11.4 fl (6.2-12.0); Monocyte# 0.69 X10^3/uL; Monocyte% 12.2 % (0-10); NRBC Flagged by Analyzer 0 % (0-5); Neutrophil # 3.68 X10^3/uL (2.7-7.7); Neutrophil % 64.8 % (47-70); Platelet Count 249 K/mm3 (150-450); RBC Distribution Width CV 12.7 % (11.6-14.6); RBC Distribution Width SD 44.4 fl (35.1-43.9); Red Blood Count 4.58 M/mm3 (4.6-6.2); White Blood Count 5.7 K/mm3 (4.4-11.0)
[2023-09-06 15:32] LABS: ALB/GLOB Ratio 0.9 RATIO (0.9-2.4); AST(SGOT) 19 U/L (15-37); Alanine Aminotransfer ALT/SGPT 21 U/L (16-61); Albumin, Serum 3.5 g/dL (3.2-5.0); Alkaline Phosphatase 85 U/L (45-117); Anion Gap 5 (5-15); BUN 23 mg/dL (7-18); BUN/Creat Ratio 21.1 RATIO (10-20); Calcium,Total 8.7 mg/dL (8.5-10.1); Chloride 105 mmol/L (98-107); Creatinine, Serum 1.09 mg/dL (0.70-1.30); EST Glomerular Filtration Rate 68 mL/min (>60); Est Glom Filt Rate - Afr Amer 83 mL/min (>60); Glucose 91 mg/dL (74-106); Magnesium 2.4 mg/dL (1.6-2.6); Protein, Total 7.5 g/dL (6.4-8.2); Sodium Level 138 mmol/L (136-145)
[2023-09-06 16:05] LABS: BNP,B-Type NATRIURETIC PEPTIDE 798.1 pg/mL (0-100)
== END | disposition home or self-care (01) ==
LOC: MFPLAB 12:32
PROVIDERS: PCP Family Medicine; Visit Provider Family Medicine
DX: I11.0 Hypertensive heart disease with heart failure (principal); I50.20 Unspecified systolic (congestive) heart failure
CPT/HCPCS: 36415; 80053; 81001; 83735; 83880; 85025

== ENCOUNTER → 2023-09-27 | Outpatient (CLI) | payer MEDICARE, SELFPAY ==
--- NOTE | 2023-09-27 07:59 | ECHOD_ITS ---
Reason For Study: Dyspnea Procedure This was a 2D Doppler, Color Flow transthoracic echocardiogram. Exam performed in department. Left Ventricle Normal LV size. The left ventricular ejection fraction is 45 %. Mild segmental systolic dysfunction (see wall motion). Posterior-Basal: Mildly hypokinetic. Mid-Posterior: Hypokinetic. Right Ventricle Normal RV size. Normal systolic function. Atria The left atrium is mildly enlarged. Normal right atrium. Mitral Valve Bileaflet diffuse mitral valve thickening. Mild-Moderate (1-2+) eccentric mitral valve insufficiency. Status post mitral valve repair with annuloplasty ring. Tricuspid Valve Normal tricuspid valve. Mild tricuspid valve insufficiency. Aortic Valve Trisinus/trileaflet aortic valve. Mild focal aortic valve thickening. Mild (1+) aortic valve insufficiency. Pulmonic Valve Normal pulmonic valve. Great Vessels Normal aortic root. The pulmonary artery is normal size. Normal inferior vena cava. Pericardium/Pleural No pericardial effusion. MMode/2D Measurements & Calculations LVIDd: 5.9 cm IVSd: 1.2 cm Ao root diam: 3.2 cm LVIDs: 4.9 cm LVPWd: 0.82 cm LA dimension: 4.9 cm RVDd: 4.4 cm FS: 17.7 % LAV(MOD-sp4): 86.8 ml LVAd ap4: 37.7 cm2 SV(MOD-sp4): 57.9 ml LVLd ap4: 8.6 cm EDV(MOD-sp4): 134.0 ml EDV(sp4-el): 139.9 ml LVAs ap4: 26.3 cm2 LVLs ap4: 7.7 cm ESV(MOD-sp4): 76.2 ml ESV(sp4-el): 76.5 ml EF(MOD-sp4): 43.2 % EF(sp4-el): 45.3 % SV(sp4-el): 63.4 ml LA A4 area: 24.7 cm2 RA A4 area: 18.5 cm2 TAPSE: 1.9 cm Time Measurements MV dec time: 0.29 sec Doppler Measurements & Calculations MV E max andrew: 111.2 cm/sec Lat Peak E' Andrew: 8.8 cm/sec Med Peak E' Andrew: 6.3 cm/sec MV A max andrew: 66.3 cm/sec E/E' lat: 12.7 E/E' med: 17.6 MV E/A: 1.7 MV V2 max: 112.5 cm/sec MV P1/2t max andrew: 112.5 cm/sec Ao V2 max: 141.5 cm/sec MV max P.1 mmHg MV P1/2t: 77.8 msec Ao max P.1 mmHg MV V2 mean: 54.8 cm/sec MV dec slope: 423.8 cm/sec2 Ao V2 mean: 95.6 cm/sec MV mean P.5 mmHg Ao mean P.3 mmHg MV V2 VTI: 28.2 cm MVA(P1/2t): 2.8 cm2 Ao V2 VTI: 29.3 cm AV (velocity ratio): 0.71 AI max andrew: 303.0 cm/sec LV V1 max: 97.3 cm/sec MR max andrew: 497.4 cm/sec AI max P.7 mmHg LV V1 max P.8 mmHg MR max P.0 mmHg AI dec slope: 127.7 cm/sec2 LV V1 mean P.2 mmHg MR mean andrew: 393.7 cm/sec AI P1/2t: 695.1 msec LV V1 mean: 68.4 cm/sec MR mean P.8 mmHg LV V1 VTI: 20.9 cm MR VTI: 178.6 cm PA V2 max: 121.4 cm/sec TR max andrew: 201.4 cm/sec TR max P.2 mmHg ECHO/Echo Complete Interpretation Summary Status post mitral valve repair with annuloplasty ring. The left ventricular ejection fraction is 45 %. The left atrium is mildly enlarged. Normal LV size. Mild segmental systolic dysfunction (see wall motion). Mild (1+) aortic valve insufficiency. Ordering Physician: Vinod Mejia Referring Physician: Vinod Mejia Performed By: Wiliam Ackerman RCS
--- OUTSIDE RECORDS SUMMARY | 2023-09-27 08:07 | XMS RPT_ITS | CCD ---
Author Name Unknown Address [address] [place] [address] Organization [facility] Care Team Providers Care Process Line Operator Name Role Phone FALGUNI MONROY Unavailable Unavailable FALGUNI MONROY Unavailable Unavailable RONALDO VINSON III Unavailable Unavailable Unavailable Primary Care Provider Unavailabl e Allergies Allergy Classification Reported Allergen(s) Allergy Type Date of Onset Reaction(s) Facility (1 source) Iodine Drug Allergy 09-01-2015 Rash [facility] Medications Completed/Discontinued Medications Medication Drug Class(es) Dates [...] Coronary arteriosclerosis; Translations: [Atherosclerotic heart disease of [place] coronary artery without angina pectoris] Onset: 05-04-2018 [...] Vaccine ( season) Covid-19 Vaccine ( season) [facility] Start: 05-06-2023 Influenza vaccination Influenza Vacc ine (#1) [facility] Start: 10-05-2022 Diabetes Screening Diabetes Screenin g [facility] Start: 09-05-2022 Advance Directive Discussion Advance Directive Discussion [facility] Start: 10-02-2020 Hepatitis B surface antibody level LDL Cholesterol [facility] Start: 04-29-2019 Urine microalbumin profile DTa P,Tdap,Td Vaccine (2 - Td or Tdap) [facility] Start: 1997 RSV Vaccine (1 - 1-d ose 60+ series) RSV Vaccine (1 - 1-dose 60+ series) [facility] Start: 11-10-1987 Shingrix Vaccine (1 of 2) Lopez grix Vaccine (1 of 2) [facility] Immunizations Immunization Date Immunization Notes Care Provider Fa cility 01-05-2018 pneumococcal conjuga te vaccine, 13 valent Yannick Tovar MD Work Phone: [facility] 09-14-2016 influenza virus vacc ine, unspecified formulation Yannick Tovar MD Work Phone: [facility] 04-28-2009 pneumococcal polysaccharide vaccine, 23 valent Yannick Tovar MD Work Phone: [facility] Work Phone: 04-28-2009 tetanus and diphther ia toxoids, adsorbed, preservative free, for adult use (2 Lf of tetanus toxoid and 2 Lf of diphtheria toxoid) Yannick Tovar MD Work Phone: [facility] Work Phone: Payers Date Payer Category Payer Unknown [id number] 2014 Unknown [employer]IMETIME [employer] POS [id number] 2014-Present [phone] [address] [place] [address] O [id number] Social History Date Type Detail Facility Start: 04-01-2011 Tobacco smoking stat [facility] Never smoked tobacco [facility] Start: 04-01-2011 Tobacco use and exposure Smoke less tobacco non-user [facility] Start: 04-04-2021 Alcohol intake Current non-dr linker up of alcohol (finding) [facility] Start: 08-12-2020 End: 04-04-2021 History of Social function [facility] Start: 08-12-2020 End: 04-04-2021 Tobacco use panel [facility] Adult Depression Scr eening Assessment 0 [facility] Start: 1935 Sex Assigned At Not on file [facility] Note 08-24-2023 Telephone Encounter - Keyonna Conley LPN - 08/24/2023 11:41 AM EST Note Date & Type Note Facility 08-24-2023 Miscellaneous Notes Formattin g of this note might be different from the original. Fax received from [facility] asking for Derm pathology. See scanned documents for request. This has been faxed to the office as requested. documented in this encounter [facility] History of Past illness Narrative 06-05-2015 Note Date & Type Note Facility documented as of this encounter (statuses as of 08/25/2023) [facility] Summary Purpose Family History No Family History Records FoundNo Family History Records Found Advance Directives No Advanced Directives Records FoundNo Advanced Directives Records Found Additional Source Comments (unrecognized sect ion and content) No Status Records FoundNo Status Records Found INFORMATION SOURCE (unrecogn ized section and content) DATE CREATED AUTHOR AUTHOR'S ORGANIZ ATION 08/25/2023 [facility] Source Comments (unrecognize d section and [...] BE BASED ON THE PRIMARY CLINICAL RECORDS. [facility]. provides no warranty or guarantee of the accuracy or completeness of information in this document.
== END | disposition home or self-care (01) ==
LOC: CVS 07:56
PROVIDERS: PCP Family Medicine; Referring Provider Family Medicine; Visit Provider Family Medicine
DX: R06.09 Other forms of dyspnea (principal); I50.20 Unspecified systolic (congestive) heart failure
CPT/HCPCS: 93306

== ENCOUNTER 2023-12-08 10:00 | Outpatient (RCR) | payer MEDICARE, SELFPAY ==
--- NOTE | 2023-11-10 12:32 | HP.PTEVAL ---
Patient's Visit Information Visit Information Visit Information: ALBERTO ZELAYA is a 88 year old M referred to Physical Therapy by Dr. Vinod Mejia MD with a diagnosis of PHYSICAL DEBILITY ,LOSS OF BALANCE. Date of Evaluation: 11/10/23 Physical Therapist: Stanley Bonds PT, Cert MDT, OCS Visit Plan Frequency: 2x /Week Duration: 4 Weeks Plan: PT INTERVENTIONS BLE STRENGTHENING ,BALANCE PROGRAM ,ENDURANCE /AEROBIC PROGRAM , AND FUNCTIONAL STRENGTHENING Subjective Subjective: This 88 y/o male presents to physical therapy with physical debility and LOB. Patient seen DR abrams PT. Patient as no falls . Patient c/o weakness in legs and generalized weakness in legs . Patient get SOB with extended distance walking . Patient has some difficulty with walking outside and yard work Patient denies paresthesia/tingling. Patient has difficulty with sleeping. Patient lives 1 story 4steps with rails. Patient is I with all ADLS and housework tasks. Patient condition affects QOL and function. Patient comorbities influences condition.Patient goals get stronger. SOCIAL: VOCATION: retired Objective Objective: POSTURE: mild forward posture NEURO: denies paresthesia/tingling GAIT: reciprocal pattern slow ck FLEXABILITY: Hamstrings min tight MMT: quads/hams 4/5 ,hip flexion/hip abd 4-/5 ,ankle 4/5 v Balance/Special Test Scores Functional Gait Assessment Score: 19 % Disability: 36.6700 CATSIB Score (Max score 120 seconds): 95 Lower Extremity Functional Score: 39 30 Second Chair Rise Test Seconds: 14 Goals Goal 1:: Patient to be I with HEP Goal Time Frame: 4-6 Weeks Goal 2:: Patient improve sit-stand 30sec by 2-3 reps to improve function strength. Goal Time Frame: 4-6 Weeks Goal 3:: Patient to improve CATSIB by 5 points to improve balance Goal Time Frame: 4-6 Weeks Goal 4:: Patient to improve functional gait assessment score by 5 points to decrease risk of falls Goal Time Frame: 4-6 Weeks Goal 5:: Patient to demonstrate 50% improvement with increase function and endurance Goal Time Frame: 4-6 Weeks Rehabilitation Potential Physical Therapy Diagnosis: This patient has generalized weakness along with mild balance deficits with decrease endurance thus benefit from skilled PTT Rehabilitation Potential: Good Anticipated Interventions Patient/Client Instruction: Educate patient on: Condition and Plan of Care For the Purpose of:: To decrease pain, To improve muscle performance and motor function, To improve ability to perform ADL's, To increase tolerance to activity/condition/position, To improve ability of physical actions for home/community/work/leisure, To improve gait and locomotor functions, To increase flexibility/ROM, To improve endurance, To improve balance and To improve tolerance to ADL's Therapeutic Exercise to Include: Strength training, Endurance training, Balance training, Gait and locomotor training and Active ROM Comment: BLE For the Purpose of:: To improve muscle performance and motor function, To improve ability to perform ADL's, To increase tolerance to activity/condition/position, To improve ability of physical actions for home/community/work/leisure, To improve gait and locomotor functions, To increase flexibility/ROM, To improve endurance, To improve balance and To improve tolerance to ADL's Text: Thank you for the opportunity to evaluate your patient. For Medicare and Medicare HMO plans, please review the plan of care and approve it. It will need to be FAXED BACK to us at [phone] for Medicare purposes. For Medicare only, by signing this I certify the plan of care. Please let me know if there are questions or concerns regarding this plan of care. Physician Signature: Date:
--- NOTE | 2023-12-08 10:53 | HP.PTDCSUM ---
Discharge Summary D/C summary: It has been my pleasure to treat ALBERTO ZELAYA referred by Dr. Vinod Mejia MD, with the diagnosis of PHYSICAL DEBILITY, LOSS OF BALANCE for a total of 9 visit(s). Discharge Date: 12/08/23 Please see the following information for a summary of their discharge status. Subjective Subjective: Doing okay I like to try ex's at home I get periodic back pain Overall Improvement % Improvement: 40 Objective Objective/Function: POSTURE: mild hips knees flexed PALPATION: tender medial lateral joint line GAIT: reciprocal pattern mild slow ck NEURO: denies paresthesia/tingling AROM: 10 -109 left supine flexion ,right 5-112 MMT: right quads 15.6 ,left 34.8 hamstrings right left 19.2 ,right 23.3 ,hip flexion left 23.1 ,right 26.9 ,ankle 4/5 LUMBAR ROM: flexion mod loss ,extension severe loss , side glides mod loss Goals Goal 1:: Patient to be I with HEP Goal Progress: Goal Met Goal 2:: Patient improve sit-stand 30sec by 2-3 reps to improve function strength. Goal Progress: Goal Met Goal 3:: Patient to improve CATSIB by 5 points to improve balance Goal Progress: Goal Met Goal 4:: Patient to improve functional gait assessment score by 5 points to decrease risk of falls Goal Progress: Goal Met Goal 5:: Patient to demonstrate 50% improvement with increase function and endurance Goal Progress: Progressing Plan Plan: d/c HEP D/C Information Discharge Comments: HEP d/c sentence: If there are questions or concerns regarding this patient's physical therapy, please feel free to call me at [phone]. Thank you for the referral of this patient. Sincerely, Stanley Bnods, PT, Cert MDT, OCS Balance/Gait/Functional tests Balance/Special Test Scores Functional Gait Assessment Score: 24 % Disability: 20.0000 CATSIB Score (Max score 120 seconds): 110 Lower Extremity Functional Score: 43 30 Second Chair Rise Test Seconds: 15 Improvement % Improvement: 40
== END 2023-12-08 19:00 | disposition home or self-care (01) ==
LOC: PT 10:00
PROVIDERS: PCP Family Medicine; Referring Provider Family Medicine; Visit Provider Family Medicine
DX: R53.81 Other malaise (principal); R26.81 Unsteadiness on feet
CPT/HCPCS: 97110; 97162; 97530

== ENCOUNTER → 2024-01-04 | Outpatient (CLI) | payer MEDICARE, SELFPAY ==
[2024-01-04 10:43] LABS: Bacteria 0 SEEN /hpf (None Seen); Mucous, Urine 0 SEEN /hpf (<or=2+); Red Blood Cells-Urine 0 SEEN /hpf (0-5); Squamous Epithelial Cells - UA 0 SEEN /hpf (0-5); White Blood Cells 0 SEEN /hpf (0-5)
[2024-01-04 12:10] LABS: Absolute Lymphocyte Count 1.11 X10^3/uL (0.83-4.51); Basophil# 0.04 X10^3/uL; Basophil% 0.8 % (0-1); Eosinophil# 0.09 X10^3/uL; Eosinophils% 1.9 % (0-5); Hematocrit 42.2 % (40-54); Hemoglobin 14.3 g/dL (13.0-16.5); Lymphocyte # 1.11 X10^3/ul (0.83-4.51); Lymphocyte % 23.4 % (19-41); Mean Corp Hgb Conc 33.9 g/dL (32-36); Mean Corpuscular Hgb 32.4 pg (27.0-32.0); Mean Corpuscular Volume 95.7 fL (80-94); Mean Platelet Vol. 10.9 fl (6.2-12.0); Monocyte# 0.51 X10^3/uL; Monocyte% 10.8 % (0-10); NRBC Flagged by Analyzer 0 % (0-5); Neutrophil # 2.98 X10^3/uL (2.7-7.7); Neutrophil % 62.9 % (47-70); Platelet Count 215 K/mm3 (150-450); RBC Distribution Width CV 13.6 % (11.6-14.6); RBC Distribution Width SD 48.6 fl (35.1-43.9); Red Blood Count 4.41 M/mm3 (4.6-6.2); White Blood Count 4.7 K/mm3 (4.4-11.0)
[2024-01-04 12:29] LABS: Color, Urine Yellow (Yellow); Glucose, Dipstick Normal (Normal); Ketone-Dipstick Negative (Negative); Leukocyte Esterase-Dipstick Negative /ul (Negative); Nitrite-Dipstick Negative (Negative); Occult Blood-Urine Negative /ul (Negative); Protein-Dipstick Negative (Negative); Urine Bilirubin Dipstick Negative (Negative); Urine Clarity Clear (Clear); Urine Urobilinogen Normal (Normal); Urine pH 6.5 (5.0 - 8.0)
[2024-01-04 12:38] LABS: ALB/GLOB Ratio 0.9 RATIO (0.9-2.4); AST(SGOT) 21 U/L (15-37); Alanine Aminotransfer ALT/SGPT 25 U/L (16-61); Albumin, Serum 3.4 g/dL (3.2-5.0); Alkaline Phosphatase 67 U/L (45-117); Anion Gap 5 (5-15); BUN 28 mg/dL (7-18); BUN/Creat Ratio 26.7 RATIO (10-20); Calcium,Total 8.6 mg/dL (8.5-10.1); Chloride 107 mmol/L (98-107); Cholesterol 153 mg/dL (200); Creatinine, Serum 1.05 mg/dL (0.70-1.30); EST Glomerular Filtration Rate 71 mL/min (>60); Est Glom Filt Rate - Afr Amer 86 mL/min (>60); Globulin 3.6 g/dL (2.2-4.2); Glucose 80 mg/dL (74-106); High Density Lipoprotein 60 mg/dL; Magnesium 2.4 mg/dL (1.6-2.6); Sodium Level 140 mmol/L (136-145); Thyroid Stim Hormone (TSH) 2.02 uIU/mL (0.358-3.74); Triglycerides 52 mg/dL; Very Low Density Lipoprotein 10 mg/dL (5-40)
== END | disposition home or self-care (01) ==
LOC: MFPLAB 10:41
PROVIDERS: PCP Family Medicine; Visit Provider Family Medicine
DX: I48.0 Paroxysmal atrial fibrillation (principal); I10 Essential (primary) hypertension
CPT/HCPCS: 36415; 80053; 80061; 81001; 83735; 84443; 85025

== ENCOUNTER → 2024-02-07 | Outpatient (CLI) | payer MEDICARE, SELFPAY ==
[2024-02-07 15:21] LABS: Anion Gap 2 (5-15); BUN 23 mg/dL (7-18); BUN/Creat Ratio 21.3 RATIO (10-20); Calcium,Total 8.9 mg/dL (8.5-10.1); Chloride 108 mmol/L (98-107); Creatinine, Serum 1.08 mg/dL (0.70-1.30); EST Glomerular Filtration Rate 69 mL/min (>60); Est Glom Filt Rate - Afr Amer 83 mL/min (>60); Glucose 99 mg/dL (74-106); Potassium 4.4 mmol/L (3.5-5.1); Sodium Level 138 mmol/L (136-145)
== END | disposition home or self-care (01) ==
LOC: LAB 13:33
PROVIDERS: PCP Family Medicine; Referring Provider Internal Medicine Cardiovascular Disease; Visit Provider Internal Medicine Cardiovascular Disease
DX: I10 Essential (primary) hypertension (principal)
CPT/HCPCS: 36415; 80048

== ENCOUNTER → 2024-04-25 | Outpatient (CLI) | payer MEDICARE, SELFPAY ==
--- NOTE | 2024-04-25 12:58 | RAD_ITS ---
STUDY: X-RAY - LUMBAR SPINE REASON FOR EXAM: Male, 88 years old. Pain. TECHNIQUE: 3 view(s) of the lumbar spine were obtained. COMPARISON: Lumbar spine MR dated April 19, 2005 FINDINGS: Marked osteopenia. Normal lordosis. Mild rotatory dextroscoliosis of the lower lumbar spine. 11 mm of anterolisthesis of L4 on L3 and 18 mm of anterolisthesis of L5 on S1. Endplate cavities compatible with osteoporosis. Loss of height of the L3, L4 and to the greatest degree L5 vertebral bodies, age indeterminant. Diffuse lower thoracic and lumbosacral facet sclerosis. Diffuse intervertebral disc space narrowing most marked at L3-4, L4-5 and L5-S1. 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 RAD/Lumbar Spine 2 or 3 Views IMPRESSION: Osteopenia with diffuse moderate to marked lower thoracic and predominantly lower lumbosacral spondylosis as described. Loss of height of the L3, L4 and L5 vertebral bodies, age indeterminate. Electronically Signed: Alvarez Zaragoza MD at 14:41 EDT ,
== END | disposition home or self-care (01) ==
LOC: MTRAD 12:58
PROVIDERS: PCP Family Medicine; Referring Provider Family Medicine; Visit Provider Family Medicine
DX: M54.50 Low back pain, unspecified (principal)
CPT/HCPCS: 72100

== ENCOUNTER → 2024-05-29 | Outpatient (CLI) | payer MEDICARE, SELFPAY ==
[2024-05-29 17:44] LABS: Absolute Lymphocyte Count 1.35 X10^3/uL (0.83-4.51); Absolute Neutrophil Count 3.1 X10^3/uL (2.0-7.7); Basophil# 0.04 X10^3/uL; Basophil% 0.8 % (0-1); Eosinophil# 0.12 X10^3/uL; Eosinophils% 2.3 % (0-5); Hematocrit 39.7 % (40-54); Hemoglobin 13.3 g/dL (13.0-16.5); Lymphocyte # 1.35 X10^3/ul (0.83-4.51); Lymphocyte % 25.4 % (19-41); Mean Corp Hgb Conc 33.5 g/dL (32-36); Mean Corpuscular Hgb 32.3 pg (27.0-32.0); Mean Corpuscular Volume 96.4 fL (80-94); Mean Platelet Vol. 11.5 fl (6.2-12.0); Monocyte# 0.67 X10^3/uL; Monocyte% 12.6 % (0-10); NRBC Flagged by Analyzer 0 % (0-5); Neutrophil # 3.13 X10^3/uL (2.7-7.7); Neutrophil % 58.7 % (47-70); Platelet Count 204 K/mm3 (150-450); RBC Distribution Width CV 13.3 % (11.6-14.6); RBC Distribution Width SD 47.2 fl (35.1-43.9); Red Blood Count 4.12 M/mm3 (4.6-6.2); White Blood Count 5.3 K/mm3 (4.4-11.0)
[2024-05-29 18:41] LABS: ALB/GLOB Ratio 0.9 RATIO (0.9-2.4); AST(SGOT) 22 U/L (15-37); Alanine Aminotransfer ALT/SGPT 24 U/L (16-61); Albumin, Serum 3.4 g/dL (3.2-5.0); Alkaline Phosphatase 75 U/L (45-117); Anion Gap 5 (5-15); BUN 23 mg/dL (7-18); BUN/Creat Ratio 24.3 RATIO (10-20); Calcium,Total 8.8 mg/dL (8.5-10.1); Chloride 105 mmol/L (98-107); Creatinine, Serum 0.95 mg/dL (0.70-1.30); EST Glomerular Filtration Rate 80 mL/min (>60); Est Glom Filt Rate - Afr Amer 97 mL/min (>60); Globulin 3.6 g/dL (2.2-4.2); Glucose 99 mg/dL (74-106); Magnesium 2.4 mg/dL (1.6-2.6); Potassium 3.9 mmol/L (3.5-5.1); Sodium Level 138 mmol/L (136-145)
[2024-05-29 18:48] LABS: BNP,B-Type NATRIURETIC PEPTIDE 898.9 pg/mL (0-100)
== END | disposition home or self-care (01) ==
LOC: MFPLAB 15:19
PROVIDERS: PCP Family Medicine; Visit Provider Family Medicine
DX: I11.0 Hypertensive heart disease with heart failure (principal); I50.20 Unspecified systolic (congestive) heart failure
CPT/HCPCS: 36415; 80053; 83735; 83880; 84443; 85025

== ENCOUNTER → 2024-07-23 | Outpatient (CLI) | payer MEDICARE, SELFPAY ==
[2024-07-23 16:25] LABS: Hematocrit 40.7 % (40-54); Hemoglobin 13.4 g/dL (13.0-16.5); Mean Corp Hgb Conc 32.9 g/dL (32-36); Mean Corpuscular Hgb 32.1 pg (27.0-32.0); Mean Corpuscular Volume 97.6 fL (80-94); Mean Platelet Vol. 11.1 fl (6.2-12.0); Platelet Count 212 K/mm3 (150-450); RBC Distribution Width CV 12.6 % (11.6-14.6); RBC Distribution Width SD 45.5 fl (35.1-43.9); Red Blood Count 4.17 M/mm3 (4.6-6.2); White Blood Count 5.9 K/mm3 (4.4-11.0)
[2024-07-23 16:53] LABS: BNP,B-Type NATRIURETIC PEPTIDE 832.1 pg/mL (0-100)
[2024-07-23 17:03] LABS: AST(SGOT) 27 U/L (15-37); Alanine Aminotransfer ALT/SGPT 34 U/L (16-61); Albumin, Serum 3.4 g/dL (3.2-5.0); Alkaline Phosphatase 75 U/L (45-117); Anion Gap 7 (5-15); BUN 24 mg/dL (7-18); BUN/Creat Ratio 24.7 RATIO (10-20); Calcium,Total 8.8 mg/dL (8.5-10.1); Chloride 107 mmol/L (98-107); Creatinine, Serum 0.97 mg/dL (0.70-1.30); EST Glomerular Filtration Rate 78 mL/min (>60); Est Glom Filt Rate - Afr Amer 94 mL/min (>60); Globulin 3.5 g/dL (2.2-4.2); Glucose 92 mg/dL (74-106); Potassium 4.2 mmol/L (3.5-5.1); Protein, Total 6.9 g/dL (6.4-8.2); Sodium Level 142 mmol/L (136-145)
== END | disposition home or self-care (01) ==
LOC: LAB 14:31
PROVIDERS: PCP Family Medicine; Referring Provider Internal Medicine Cardiovascular Disease; Visit Provider Internal Medicine Cardiovascular Disease
DX: R06.09 Other forms of dyspnea (principal)
CPT/HCPCS: 36415; 80053; 83880; 85027

== ENCOUNTER → 2024-09-07 | Outpatient (CLI) | payer MEDICARE, SELFPAY ==
--- NOTE | 2024-09-07 09:47 | STRESSREP ---
Stress Test Report Pharmacologic myocardial perfusion stress test. 88-year-old man with a history of dyspnea on exertion Resting EKG demonstrates sinus bradycardia with a rate of 54 bpm. Resting blood pressure is 167/79 mmHg. 0.4 mg of regadenoson was infused per usual protocol followed by rapid intravenous saline flush injection. Continuous EKG monitoring was performed. The maximum heart rate was 75 bpm which was 55% of max impacted heart rate the maximum workload was 1 metabolic equivalent. At rest there were no ST or T wave changes noted to suggest ischemia and at peak infusion nonspecific ST changes were noted which did not meet the criteria for ischemia. No clinical angina is noted. The final blood pressure was 152/70 mmHg. Myocardial perfusion protocol. 11.7 mCi of technetium 99m sestamibi was injected at rest. 0.4 mg of regadenoson was infused per usual protocol. At peak infusion 34.3 mCi of technetium 99m sestamibi was injected stress images were obtained stress and rest images were reconstructed and compared in the short axis vertical long and horizontal long axis. Gated images were also obtained. Perfusion SPECT analysis: Review of the stress images demonstrate normal uptake of tracer noted in all areas of the myocardium. The resting images similar demonstrated normal uptake of tracer noted in all areas of the myocardium. No areas of reversibility are noted to suggest ischemia and no previous infarct is noted. Gated SPECT analysis: The gated ejection fraction is 42%. Conclusion: Normal pharmacologic myocardial perfusion stress test. Mildly reduced ejection fraction.
== END | disposition home or self-care (01) ==
PROVIDERS: PCP Family Medicine; Referring Provider Internal Medicine Cardiovascular Disease; Visit Provider Internal Medicine Cardiovascular Disease
DX: R07.9 Chest pain, unspecified (principal)
CPT/HCPCS: 78452; 93017; A9500; A4216; J2785

== ENCOUNTER 2024-10-31 10:00 | Outpatient (RCR) | payer MEDICARE, SELFPAY ==
--- NOTE | 2024-09-27 10:08 | HP.PTEVAL ---
Patient's Visit Information Visit Information Visit Information: ALBERTO ZELAYA is a 88 year old M referred to Physical Therapy by Dr. Olinda Buchanan MD with a diagnosis of Left trapezius strain. Date of Evaluation: 09/27/24 Physical Therapist: Minesh Acharya Visit Plan Frequency: 1-2x /Week Duration: 6 Weeks Plan: Continue with improving neck ROM and neck/scapular strengthening. Continue to educate on postural correction as well. Use manual therapy, modalities, and cervical traction as needed for pain control. Subjective Subjective: Pt. is a 88 y.o. male who has left sided neck pain/tingling which goes from his upper neck to shoulder which has been going on for about 2 weeks. Pt. denies any specific injury. Pt. PLOF includes history of occasional neck pain in the past. He has not had any recent imaging of his cervical spine. Pt. denies any symptoms down past his shoulder. He also reports that he gets headaches at times but is unable to report how often he gets headaches. Pt. has difficulty with looking up/down, turning his head, and reading a book. Pt. is retired. His goal with physical therapy is to decrease his pain. He has had previous physical therapy in the past but he is not sure what for. Pt. rates left sided neck pain at 3/10 currently, at worst 8/10, at best 0/10 and describes the pain grabbing, burning, and intense pressure. He will take Tylenol as needed for pain. His PMH includes CHF, HBP controlled with medication, heart valve surgery, right THR, and right RTC repair. Pt. lives with his son. His hobbies include reading, cleaning, and being outdoors. Objective Objective: Posture- Forward head posture in sitting Palpation- No tenderness to palpation Cervical AROM flexion- 35 degrees, extension 60 degrees, rotation to left- 60 degrees, rotation to right- 58 degrees, SB to left- 18 degrees, SB to right- 26 degrees Left shoulder strength flexion 4+/5, abduction 4-/5, ER 4/5, IR 5/5 Right shoulder strength flexion 5/5, abduction 4+/5, ER 4-/5, IR 5/5 Special tests- Spurling's [-], Cervical distraction [-] Balance/Special Test Scores Quick DASH Score: 27.2725 Goals Goal 1:: Pt. will be independent with home exercise program. Goal Time Frame: 4-6 Weeks Goal 2:: Pt. will be able to look up/down and turn his head with no neck pain. Goal Time Frame: 4-6 Weeks Goal 3:: Pt. will be able to read his book with no neck pain. Goal Time Frame: 4-6 Weeks Goal 4:: Pt. will rate neck pain at worst at 3/10 with ADL's. Goal Time Frame: 4-6 Weeks Goal 5:: Pt. will improve Quick Dash score by 5% in order to improve ADL's. Goal Time Frame: 4-6 Weeks Goal 6:: Pt. will improve bilateral shoulder strength to 4/5 for all motions in order to improve ADL's. Goal Time Frame: 4-6 Weeks Rehabilitation Potential Physical Therapy Diagnosis: Decreased cervical ROM, UE weakness, posture, and pain Rehabilitation Potential: Good Anticipated Interventions Patient/Client Instruction: Educate patient on: Condition and Plan of Care For the Purpose of:: To decrease pain, To improve ability to perform ADL's, To improve performance and independence with ADL's, To assume or resume ADL's and To improve tolerance to ADL's Therapeutic Exercise to Include: Strength training, Postural training, Active ROM, Fara Exercises and Scapular Strength/Stabilization Comment: Continue with improving cervical ROM and neck/scapular strengthening. For the Purpose of:: To decrease pain, To increase ROM, To improve ability to perform ADL's, To improve performance and independence with ADL's, To increase flexibility/ROM and To improve tolerance to ADL's Functional Training to Include: ADL Training For the Purpose of:: To decrease pain, To improve ability to perform ADL's, To improve performance and independence with ADL's and To improve tolerance to ADL's Manual Therapy Techniques to Include: Trigger point massage, Mobilization, Passive ROM and Soft tissue mobilization For the Purpose of:: To decrease pain, To increase ROM, To improve ability to perform ADL's, To improve performance and independence with ADL's, To increase flexibility/ROM and To improve tolerance to ADL's TENS: Yes IF ES: Yes Cryotherapy (ice pack, ice massage): Yes Intermittent cervical traction: Yes For the Purpose of:: To decrease pain, To improve ability to perform ADL's, To improve performance and independence with ADL's and To improve tolerance to ADL's Text: Thank you for the opportunity to evaluate your patient. For Medicare and Medicare HMO plans, please review the plan of care and approve it. It will need to be FAXED BACK to us at [phone] for Medicare purposes. For Medicare only, by signing this I certify the plan of care. Please let me know if there are questions or concerns regarding this plan of care. Physician Signature: Date:
--- NOTE | 2024-10-31 14:33 | HP.PTDCSUM ---
Discharge Summary D/C summary: It has been my pleasure to treat ALBERTO ZELAYA referred by Dr. Olinda Buchanan MD, with the diagnosis of Left trapezius strain for a total of 10 visit(s). Discharge Date: 10/31/24 Please see the following information for a summary of their discharge status. Subjective Subjective: PATIENT REPORTS THE PAIN HE CAME HERE FOR IS CERTAINLY LESS. HE REPORTS HE HAS NOTICED THE MOST IMPROVEMENT IN THE LAST WEEK OR TWO. HE REPORTS HIS PAIN RANGES FROM 0-3/10 NOW. PATIENT STATES IT IS AT THE POINT THAT HE IS COMFORTABLE MANAGING IT ON HIS OWN NOW AND WILL CONSULT HELP IF IT GOES BACKWARDS. Pain L NECK/SHLD: Pain Intensity (Out of 10): 2 Overall Improvement % Improvement: 50 Objective Objective/Function: PATIENT WAS SEEN TODAY FOR RE-ASSESSMENT OF PROGRESS TOWARD THE SET PT GOALS AND THE NEED FOR FURTHER PHYSICAL THERAPY VS READINESS FOR DISCHARGE. UPON EXAM TODAY: THIS PATIENT HAS MADE GOOD PROGRESS WITH PT AND HIS NECK PAIN IS MORE MANAGEABLE NOW. HE HAS BEEN INSTRUCTED IN ACTIVITY MODIFICATIONS AND A HEP. HE IS APPROPRIATE FOR AND AGREEABLE TO DISCHARGE AND WILL FOLLOW UP WITH HIS PHYSICIAN NEEDED. ALTHOUGH HIS NECK PAIN IS LESS IT CAN STILL BE EASILY PROVOKED WITH MVMT IN MOST DIRECTIONS AND HIS SHLD STRENGTH HAS REMAINED UNCHANGED AND PAIN LIMITED (CHRONIC). Goals Goal 1:: Pt. will be independent with home exercise program. Goal Progress: Goal Met Goal 2:: Pt. will be able to look up/down and turn his head with no neck pain. Goal Progress: Progressing Goal 3:: Pt. will be able to read his book with no neck pain. Goal Progress: Progressing Goal 4:: Pt. will rate neck pain at worst at 3/10 with ADL's. Goal Progress: Goal Met Goal 5:: Pt. will improve Quick Dash score by 5% in order to improve ADL's. Goal Progress: Progressing Goal 6:: Pt. will improve bilateral shoulder strength to 4/5 for all motions in order to improve ADL's. Goal Progress: Not Met Plan Plan: D/C. PATIENT AGREEABLE. D/C Information d/c sentence: If there are questions or concerns regarding this patient's physical therapy, please feel free to call me at [phone]. Thank you for the referral of this patient. Sincerely, Shama Barajas, PT, Cert MDT Balance/Gait/Functional tests Balance/Special Test Scores Quick DASH Score: 20.4525 Improvement % Improvement: 50
== END 2024-10-31 19:00 | disposition home or self-care (01) ==
LOC: PT 10:00
PROVIDERS: PCP Family Medicine; Referring Provider Family Medicine; Visit Provider Family Medicine
DX: S29.012D Strain of muscle and tendon of back wall of thorax, subsequent encounter (principal)
CPT/HCPCS: 97035; 97110; 97140; 97162; 97530

== ENCOUNTER → 2024-12-28 | Outpatient (CLI) | payer MEDICARE, SELFPAY ==
[2024-12-28 14:49] LABS: Absolute Lymphocyte Count 1.52 X10^3/uL (0.83-4.51); Absolute Neutrophil Count 3.3 X10^3/uL (2.0-7.7); Basophil# 0.04 X10^3/uL; Basophil% 0.7 % (0-1); Eosinophils% 1.7 % (0-5); Hemoglobin 14.4 g/dL (13.0-16.5); Lymphocyte # 1.52 X10^3/ul (0.83-4.51); Lymphocyte % 26.4 % (19-41); Mean Corp Hgb Conc 35.1 g/dL (32-36); Mean Corpuscular Hgb 33.3 pg (27.0-32.0); Mean Corpuscular Volume 94.9 fL (80-94); Mean Platelet Vol. 10.6 fl (6.2-12.0); Monocyte# 0.81 X10^3/uL; Monocyte% 14.1 % (0-10); NRBC Flagged by Analyzer 0 % (0-5); Neutrophil # 3.27 X10^3/uL (2.7-7.7); Neutrophil % 56.9 % (47-70); Platelet Count 191 K/mm3 (150-450); RBC Distribution Width CV 12.9 % (11.6-14.6); RBC Distribution Width SD 45.1 fl (35.1-43.9); Red Blood Count 4.32 M/mm3 (4.6-6.2); White Blood Count 5.8 K/mm3 (4.4-11.0)
[2024-12-28 15:26] LABS: ALB/GLOB Ratio 1.4 RATIO (0.9-2.4); AST(SGOT) 30 U/L (<=37); Alanine Aminotransfer ALT/SGPT 19 U/L (<=46); Albumin, Serum 4.1 g/dL (3.4-4.8); Alkaline Phosphatase 72 U/L (40-129); Anion Gap 10 (5-15); BUN 25 mg/dL (4-19); BUN/Creat Ratio 22.2 RATIO (10-20); Calcium,Total 9.2 mg/dL (7.6-11.0); Carbon Dioxide 25.5 mmol/L (21.0-32.0); Chloride 105 mmol/L (98-108); Creatinine, Serum 1.11 mg/dL (0.70-1.20); EST Glomerular Filtration Rate 64 (>60); Glucose 99 mg/dL (70-99); Magnesium 2.3 mg/dL (1.5-2.2); Potassium 4.3 mmol/L (3.3-5.1); Protein, Total 7.1 g/dL (5.9-8.4); Sodium Level 140 mmol/L (133-145); Total Bilirubin 0.71 mg/dL (0.00-1.30)
== END | disposition home or self-care (01) ==
LOC: LAB 14:28
PROVIDERS: PCP Family Medicine; Referring Provider Family Medicine; Visit Provider Family Medicine
DX: I48.0 Paroxysmal atrial fibrillation (principal); I25.10 Atherosclerotic heart disease of native coronary artery without angina pectoris
CPT/HCPCS: 36415; 80053; 83735; 85025

== ENCOUNTER 2025-06-21 10:51 | Emergency (ER) | payer MEDICARE, SELFPAY ==
[2025-06-21 10:52] VITALS: BP 180/82; PULSE 64; RESP 16; TEMP 36.8; O2SAT 98; BMI 23.9
--- NOTE | 2025-06-21 11:21 | CT_ITS ---
PROCEDURE: SOFT TISSUE NECK WITHOUT CONTR 06/21/2025 REASON FOR EXAM: R PERITONSILLAR ABSCESS Difficulty swallowing. TECHNIQUE: Procedure Code: CTNE Modality: CT Procedure: SOFT TISSUE NECK WITHOUT CONTR CONTRAST: None One or more dose reduction techniques were used (e.g., Automated exposure control, adjustment of the mA and/or kV according to patient size, use of iterative reconstruction technique). RADIATION DOSE SUMMARY: CTDlvol: 14.3 mGy DLP: 439.47 mGycm COMPARISON: None FINDINGS: Airway: Midline and patent.. Calcifications seen in both palatine tonsils worse on the right side. This is in keeping with the tonsilloliths. No abscess formation is seen. Salivary glands: Unremarkable Lymph nodes: Small benign-appearing mediastinal lymph nodes. Thyroid: Unremarkable Vasculature: Extensive calcified plaques of the carotid arteries. Orbits: Unremarkable at visualized levels. Paranasal sinuses and mastoids: Grossly clear at visualized levels. Lung apices: Clear. Upper mediastinum: Visualized mediastinum is unremarkable. Bones: Multilevel degenerative changes of the spine. Other: CT/Soft Tissue Neck without Contr IMPRESSION: Calcifications in both tonsils more prominent on the right side. No abscess is seen. Reading Location: [place] [id number]
[2025-06-21 11:39] LABS: Hematocrit 40.5 % (40-54); Hemoglobin 14.1 g/dL (13.0-16.5); Immature Granulocytes Count 0.020 X10^3/uL (0.0-0.0); Mean Corp Hgb Conc 34.8 g/dL (32-36); Mean Corpuscular Volume 95.3 fL (80-94); Mean Platelet Vol. 11.3 fl (6.2-12.0); NRBC Flagged by Analyzer 0 % (0-5); Platelet Count 193 K/mm3 (150-450); RBC Distribution Width CV 13.0 % (11.6-14.6); RBC Distribution Width SD 45.0 fl (35.1-43.9); Red Blood Count 4.25 M/mm3 (4.6-6.2); White Blood Count 7.7 K/mm3 (4.4-11.0)
--- NOTE | 2025-06-21 11:40 | EX.ED.DYSGE1 ---
HPI History of Present Illness Chief Complaint: Other, Pain/Inj Informant: patient Narrative Narrative: 89-year-old male presenting to the emergency room with throat pain. Patient states that on Tuesday he began to have discomfort in his throat mostly on the right. Tuesday it progressed so he went to urgent care where he was started on Keflex. He states that it continues to hurt particularly with any type of swallowing so he came to see his primary care doctor who sent him to emergency. No reported fevers. He notes some mild phlegm and a slight cough. No rashes. He notes he is urinating at baseline. No new medications other than the Keflex. No rashes. PFSH PFSH Medical History Paroxysmal atrial fibrillation Atherosclerosis of [place] coronary artery of [place] heart without angina pectoris Pulmonary hypertension Shingles Home Medications ?Medication ?Instructions ?Recorded ?Last Taken ?Type carvedilol 12.5 mg tablet 12.5 mg PO BID #180 tabs 04/03/25 Unknown Rx furosemide 20 mg tablet (Lasix) 20 mg PO Q OTHER DAY PRN Edema/SOB 04/03/25 Unknown Rx #45 tabs losartan 25 mg tablet 25 mg PO BID #180 tabs 04/03/25 Unknown Rx amoxicillin 875 mg-potassium 875 mg PO Q12H #20 TABLETS 06/21/25 Unknown Rx clavulanate 125 mg tablet methylprednisolone 4 mg tablets in See Rx Instructions PO .COMPLEX 06/21/25 Unknown Rx a dose pack (Medrol (Guille)) #21 tabs oxycodone-acetaminophen 5 mg-325 1 tab PO Q6H PRN PRN Pain 3 days 06/21/25 Unknown Rx mg tablet #12 TABLETS Allergy/AdvReac Type Severity Reaction Status Date / Time Iodinated Contrast Media Allergy Swelling Verified 12/31/24 09:43 (Iodinated Contrast Media - IV Dye) Family History Father Colon cancer Heart disease Mother CVA (cerebral vascular accident) Grandfather Heart failure Brother Cancer Brother Heart disease Pacemaker Surgical History History of mitral valve repair S/P left atrial appendage ligation S/P CABG x 2 Social History Smoking Status: Never smoker alcohol intake: never substance use type: does not use caffeine: Yes (occasional) Type: coffee and tea ROS ROS ED Constitutional Constitutional ED: Denies chills, fever(s) or weight loss Eyes Eyes: Denies change in vision or diplopia ENT ENT ED: Reports sore throat; Denies ear pain or rhinorrhea Cardiovascular Cardiovascular: Denies chest pain, orthopnea, palpitations or racing heartbeat Respiratory/Chest Respiratory/Chest: Denies cough, dyspnea or orthopnea Gastrointestinal Gastrointestinal: Denies abdominal pain, diarrhea, nausea or vomiting Genitourinary Genitourinary ED: Denies dysuria, hematuria or urinary frequency Musculoskeletal Musculoskeletal: Denies arthralgias or myalgias Integumentary Denies abscess or rash Neurologic Neurologic: Denies headache(s) or weakness Psychiatric Psychiatric: Denies anxiety, depression, suicidal ideation or suicidal thoughts Endocrine Endocrinology: Denies polydipsia, polyphagia or polyuria Allergic/Immunologic Allergic/Immunologic ED: Denies mouth swelling, tongue swelling or urticaria EXAM Physical Exam Const Vital Signs: 06/21/25 10:52 06/21/25 11:01 06/21/25 13:14 Temperature 98.2 F Temperature Source Oral Pulse Rate 64 62 Respiratory Rate 16 18 Respiratory Effort Normal Respiratory Pattern Normal Blood Pressure 180/82 H 163/87 H Blood Pressure Mean 114 112 Pulse Ox 98 95 Oxygen Delivery Method Room Air Room Air 06/21/25 13:34 Temperature 98.3 F Temperature Source Pulse Rate 63 Respiratory Rate 18 Respiratory Effort Respiratory Pattern Blood Pressure 163/87 H Blood Pressure Mean 112 Pulse Ox 97 Oxygen Delivery Method Positive well nourished and well developed General Appearance ED: well developed HEENT Reports normocephalic, head/scalp atraumatic and moist mucous membranes HEENT Narrative: Patient demonstrates no drooling. The uvula does appear edematous. There is some mild oral pharyngeal erythema particularly on the right. No tongue swelling or protrusion. He is able to lay back. Mild tenderness to palpation in the anterior right neck Eyes PERRL and EOMs intact bilaterally Neck no lymphadenopathy, supple and no JVD Resp normal respiratory effort and clear to auscultation bilaterally Cardio regular rate, regular rhythm and no murmurs GI normal to inspection, nondistended, normoactive bowel sounds and non-tender Palpation: soft Back/Spine no CVA tenderness and normal ROM Extremity normal to inspection General Extremety ED: Negative for edema General Extremity: Negative for edema Neuro oriented x3 and CN's II-XII intact bilaterally Sensorium / Orientation: alert Motor Exam: strength 5/5 throughout Psych mental status grossly normal Mood & Affect: Negative for depressed or tearful Skin no rashes or lesions noted and no wounds MDM MDM MDM Narrative Medical decision making narrative: Differential diagnosis includes but not limited to uvulitis peritonsillar abscess epiglottitis viral and bacterial pharyngitis malignancy A noncontrasted neck CT was obtained due to the patient's reported IV dye allergy. This was negative for obvious abscess or mass. Monoscreen is negative. White count 7.5 hemoglobin 14.1 platelet count of 193. Differential includes 73.7 neutrophils 14% lymphocytes 10.9 monocytes. BMP is within normal limits. Patient is handling his secretions. We have changed him from Keflex to Augmentin and we obtained a throat culture. For pain management we can try some Medrol as well as hydrocodone. Would recommend ENT follow-up if not improving return if worsening patient is comfortable with this plan. We talked about staying hydrated and eating high caloric/protein liquids until he is able to tolerate solid foods better History & Record Review Discussion w/independent historian: Patient Lab Data Attestation: I reviewed the patient's lab results. Labs: Laboratory Results - last 24 hr 06/21/25 06/21/25 11:34 12:15 WBC 7.7 RBC 4.25 L Hgb 14.1 Hct 40.5 MCV 95.3 H MCH 33.2 H MCHC 34.8 RDW Std Deviation 45.0 H RDW Coeff of Drew 13.0 Plt Count 193 MPV 11.3 Immature Gran % (Auto) 0.300 Neut % (Auto) 73.7 H Lymph % (Auto) 14.0 L [place] % (Auto) 10.9 H Eos % (Auto) 0.8 Baso % (Auto) 0.3 Absolute Neuts (auto) 5.7 Absolute Lymphs (auto) 1.08 Nucleated RBC % 0 Sodium 138 Potassium 4.5 Chloride 103 Carbon Dioxide 26.3 Anion Gap 9 BUN 17 Creatinine 0.84 Estim Creat Clear Calc 51.88 Est GFR (MDRD) Non-Af 84 BUN/Creatinine Ratio 19.7 Glucose 94 Calcium 9.1 Monoscreen Negative Radiography Diagnostic Testing: Clinical Impression(s) from Imaging Studies Soft Tissue Neck CT 06/21/25 11:21 IMPRESSION: Calcifications in both tonsils more prominent on the right side. No abscess is seen. Reading Location: [place] [id number] Discharge Plan Triage Chief Complaint: Other, Pain/Inj ED Provider: Chung Aquino Dx/Rx/DC Orders Clinical Impression: Uvulitis, Pharyngitis Instructions: ED Pharyngitis, Report Pending, ED Uvulitis Prescriptions: New oxycodone-acetaminophen 5-325 mg tablet 1 tab PO Q6H PRN PRN (Reason: Pain) 3 Days Qty: 12 0RF amoxicillin-pot clavulanate 875-125 mg tablet 875 mg PO Q12H Qty: 20 0RF methylprednisolone [Medrol (Guille)] 4 mg tablets,dose pack See Rx Instructions .ROUTE .COMPLEX Qty: 21 0RF Rx Instructions: for 6 days No Action carvedilol 12.5 mg tablet 12.5 mg PO BID Qty: 180 3RF Rx Instructions: must administer with a meal/food furosemide [Lasix] 20 mg tablet 20 mg PO Q OTHER DAY PRN (Reason: Edema/SOB) Qty: 45 3RF losartan 25 mg tablet 25 mg PO BID Qty: 180 3RF Primary Care Provider: Vinod Mejia Referrals: Vinod Mejia MD [Primary Care Provider, Family Practice] Nate Hicks MD [Med Staff - Active Staff, Ear Nose Throat (ENT)] - 3-5 Days if not improving Activity Restrictions/Additional Instructions: Discontinue the Keflex and begin Augmentin. For pain you are being prescribed a pain medication ([place]). I have also prescribed Medrol which is a steroid which should help reduce some swelling as well as improve pain Please drink plenty of fluids to stay hydrated If continued symptoms please follow-up with ENT or return if worsening. Print Language: Slovenian Disposition Disposition: Home, Self Care Discharge Date/Time: 06/21/25 13:47
--- OUTSIDE RECORDS SUMMARY | 2025-06-21 11:51 | XMS RPT_ITS | CCD ---
Author Organization [facility] Care Team Providers Care Analyst Market Intelligence Name Role Phone FALGUNI MONROY Unavailable Unavailable FALGUNI MONROY Unavailable Unavailable TRISTAN SMITH III Unavailable Unavailable Dr. Vinod Mejia Primary Care Provider [phone] Dr. Osvaldo Sewell Attending Provider Dr. Vinod Mejia Referring Provider Luly WAHL, PA Gallo Ladd Attending Provider Carlos WAHL PA Floyd Attending Provider [phone] Vinod Mejia Primary Care Provider [phone] Dr. Vinod Mejia Referring Provider Dr. Osvaldo Sewell Attending Provider Dr. Jarret Payan Attending Provider Unavailable Primary Care Provider UnavailDr. Vinod Mitchell Primary Care Provider [phone] Dr. Osvaldo Sewell Attending Provider Dr. Vinod Mejia Primary Care Provider [phone] Dr. Osvaldo Sewell Attending Provider Dr. Vinod Mejia MD Primary Care Provider Dr. Raz Schmitz MD Attending Provider Dr. Raz Schmitz MD Referring Provider Dr. Raz Schmitz MD Other Provider Dr. Osvaldo Sewell MD Attending Provider Dr. Olinda Buchanan MD Attending Provider Dr. Olinda Buchanan MD Referring Provider Roberto COLE, Dr. Vinod Xavier Attending Provider Dr. Vinod Mejia MD Referring Provider Vinod Gallegos Attending Provider [phone] Vinod Mejia Attending Unavailable Vinod Mejia Referring Unavailable Vinod Mejia Primary Care Unavailable Raz Schmitz Referring Unavailable Vinod Mejia Primary Care Unavailable Raz Schmitz Attending Unavailable Raz Schmitz Referring Unavailable Vinod Mejia Primary Care Unavailable Raz Schmitz Attending Unavailable Olinda Buchanan Attending Unavailable Olinda Buchanan Referring Unavailable Vinod Mejia Primary Care Unavailable Osvaldo Sewell Attending Unavailable Vinod Mejia Primary Care Unavailable Raz Schmitz Consulting Unavailable Raz Schmitz Referring Unavailable Vinod Mejia Referring Unavailable Vinod Ruffin NP Attending Unavailable Vinod Mejia Primary Care Unavailable Vinod Mejia Referring Unavailable Raz Schmitz Attending Unavailable Vinod Mejia Primary Care Unavailable Vinod Mejia Referring Unavailable Vinod Mejia Primary Care Unavailable Vinod Ruffin NP Attending Unavailable Allergies Allergy Classification Reported Allergen(s) Allergy Type Date of Onset Reaction(s) Facility (10 sources) Triiodobenzoic Acids Allergy to substance 9 Swelling [facility] (1 source) Iodine Drug Allergy 5 Rash [facility] (1 source) Iodinated Contrast Media Drug allergy (disorder) 5 [facility] Repository Medications Current Medications Medication Drug Class(es) Dates Sig (Normalized) Sig (Original) carvedilol 12.5 mg oral tablet (14 sources) alpha-Adrenergic Carly, beta-Adrenergic Carly Start: 01-31-2024 take 1 tablet by mouth twice daily at mealtime Carvedilol 12.5 mg tablet Active 12.5 mg PO TWICE A DAY 180 January 31, 2024 1:45pm must administer with a meal/food Start: 03-15-2023 End: 01-31-2024 take 1 tablet by mouth twice daily at mealtime Carvedilol 6.25 mg tablet Discontinued 6.25 mg PO TWICE A DAY 180 March 15, 2023 12:00am January 31, 2024 1:46pm must administer with a meal/food Start: 11-03-2022 End: 03-15-2023 take 2 tablets by mouth twice daily at mealtime Carvedilol (Coreg) 3.125 mg tablet Discontinued 6.25 mg PO TWICE A DAY November 03, 2022 1:00am March 15, 2023 6:12pm administer with food (meal or snack) furosemide 20 mg oral tablet (9 sources) Loop Diuretic Start: 05-04-2024 take 1 tablet by mouth every other day as needed for edema Furosemide (Lasix) 20 mg tablet Active 20 mg PO every other day as needed for Edema/SOB May 04, 2024 12:00am Start: 11-03-2022 End: 01-31-2024 take 1 tablet by mouth once daily Furosemide (Lasix) 40 mg tablet Discontinued 40 mg PO DAILY November 03, 2022 1:00am January 31, 2024 1:52pm losartan potassium 50 mg oral tablet (11 sources) Angiotensin 2 Receptor Carly Start: 12-31-2024 Losartan 50 mg tablet Active 25 mg PO TWICE A DAY December 31, 2024 9:44am Start: 06-22-2024 End: 12-31-2024 take 1 tablet by mouth twice daily Losartan 50 mg tablet Discontinued 50 mg PO TWICE A DAY June 22, 2024 9:35am December 31, 2024 9:44am Start: 11-03-2022 End: 06-22-2024 take 1 tablet by mouth once daily Losartan 50 mg tablet Discontinued 50 mg PO DAILY November 03, 2022 1:00am June 22, 2024 9:27am Completed/Discontinued Medications Medication Drug Class(es) Dates Sig (Normalized) Sig (Original) amLODIPine 5 mg oral tablet (8 sources) Dihydropyridine Calcium Channel Carly Start: 11-01-19 End: 11-04-19 take 1 tablet by mouth once daily Amlodipine 5 mg tablet Discontinued 5 mg PO DAILY November 01, 2022 1:00am November 03, 2022 5:41pm cyclobenzaprine hydrochloride 10 mg oral tablet (2 sources) Muscle Relaxant Start: 11-17-19 take 1 tablet by mouth every eight hours as needed cyclobenzaprine (FLEXERIL) 10 mg tablet Take 1 tablet by mouth three times daily as needed for Muscle Spasm. 15 tablet 0 01/26/2021 Active Comment on above: Take 1 tablet by angela th three times daily as needed. Take 1 tablet by angela th three times daily as needed for Muscle Spasm. gabapentin 300 mg oral capsule (8 sources) Anti-epileptic Agent Start: 11-01-19 End: 01-31-20 take 1 capsule by mouth three times daily as needed for pain Gabapentin 300 mg capsule Discontinued 300 mg PO THREE TIMES A DAY as needed for pain November 01, 2022 1:00am January 31, 2024 1:20pm hydroCHLOROthiazide 12.5 mg / lisinopril 20 mg oral tablet (1 source) Thiazide Diuretic, Angiotensin Converting Enzyme Inhibitor Start: 10-16-19 take 2 tablets by mouth once daily in the morning lisinopril-hydrochlor othiazide (PRINZIDE,ZESTORETIC) 20-12.5 mg per tablet Take 2 tablets by mouth every morning. 60 tablet 11 10/16/2019 Active Comment on above: Take 2 tablets by mo [facility] every morning. lisinopril 20 mg oral tablet (10 sources) Angiotensin Converting Enzyme Inhibitor Start: 03-11-20 End: 11-01-19 take 1 tablet by mouth once daily Lisinopril 20 MG tablet Discontinued 20 mg PO DAILY March 11, 2019 12:00am November 01, 2022 3:02pm methylPREDNISolone 4 mg oral tablet (8 sources) Corticosteroid Start: 10-16-19 End: 10-22-19 take 1 tablet by mouth once Methylprednisolone (Medrol (Guille)) 4 mg tablets,dose pack Discontinued 4 mg PO per package directions 21 October 16, 2022 1:00am October 21, 2022 1:00am October 22, 2022 1:05am naproxen 500 mg oral tablet (2 sources) Nonsteroidal Anti-inflammatory Drug Start: 11-17-19 take 1 tablet by mouth every twelve hours as needed naproxen (NAPROSYN) 500 mg tablet Take 1 tablet by mouth twice daily as needed (pain/inflammation, take with food.). 20 tablet 0 01/26/2021 Active Comment on above: Take 1 tablet by angela twice daily as needed. Take with food. Take 1 tablet by angela th twice daily as needed (pain/inflammation, take with food.). predniSONE 20 mg oral tablet (9 sources) Start: 10-09-19 End: 10-16-19 take 1 tablet by mouth twice daily Prednisone 20 mg tablet Discontinued 20 mg PO TWICE A DAY October 09, 2022 1:00am October 16, 2022 1:30pm sacubitril 24 mg / valsartan 26 mg oral tablet (8 sources) Angiotensin 2 Receptor Carly Start: 11-01-19 End: 11-04-19 Sacubitril-Valsartan (Entresto) 24-26 mg tablet Discontinued 1 {tbl} PO TWICE A DAY November 01, 2022 1:00am November 03, 2022 5:41pm spironolactone 25 mg oral tablet (1 source) Aldosterone Antagonist Start: 01-31-20 End: 05-04-20 take 1 tablet by mouth once daily Spironolactone 25 mg tablet Discontinued 25 mg PO DAILY January 31, 2024 12:00am May 04, 2024 11:36am valACYclovir 1000 mg oral tablet (9 sources) Herpesvirus Nucleoside Analog DNA Polymerase Inhibitor, Herpes Simplex Virus Nucleoside Analog DNA Polymerase Inhibitor, Herpes Zoster Virus Nucleoside Analog DNA Polymerase Inhibitor Start: 10-09-19 End: 11-01-19 Valacyclovir 1 gram tablet Discontinued 1000 mg PO THREE TIMES A DAY October 09, 2022 1:00am November 01, 2022 3:02pm Start: 10-09-2022 End: 11-01-2022 take 1000 mg by mouth three times daily Valacyclovir Discontinued 1000 MG PO THREE TIMES A DAY October 09, 2022 1:00am November 01, 2022 3:02pm Problems Active Problems Problem Classification Problem Date Documented Date Episodic/Chronic Adjustment disorders (1 source) Mixed anxiety and depressive disorder; Translations: [Adjustment disorder with mixed anxiety and depressed mood] Onset: 09-01-2015 09-01-2015 Chronic Anxiety disorders (1 source) Generalized anxiety disorder; Translations: [Generalized anxiety disorder] Onset: 09-22-2007 09-22-2007 Chronic Cardiac dysrhythmias (13 sources) Atrial fibrillation; Translations: [Unspecified atrial fibrillation] Onset: 05-04-2018 03-11-2019 Chronic Coronary atherosclerosis and other heart disease (14 sources) Coronary arteriosclerosis; Translations: [Atherosclerotic heart disease of [place] coronary artery without angina pectoris] Onset: 05-04-2018 03-11-2019 Chronic Comment on above: RODDY to LAD, SVG-OM 08/12/[address] Cabral at [place]; Coronary atherosclerosis and other heart disease (2 sources) Presence of aortocoronary bypass graft; Translations: [Presence of aortocoronary bypass graft] Onset: 09-30-2024 Episodic Esophageal disorders (1 source) Gastroesophageal reflux disease; Translations: [Gastro-esophageal reflux disease without esophagitis] Onset: 11-30-2005 11-30-2005 Chronic Essential hypertension (20 sources) Malignant hypertension; Translations: [Essential (primary) hypertension] Onset: 08-23-2012 03-11-2019 Chronic Heart valve disorders (1 source) History of mitral valve replacement; Translations: [Presence of prosthetic heart valve] Onset: 11-13-2015 09-14-2016 Chronic Hyperplasia of prostate (1 source) Benign prostatic hypertrophy with outflow obstruction; Translations: [Benign prostatic hyperplasia with lower urinary tract symptoms] Onset: 01-15-2010 01-05-2018 Chronic Malaise and fatigue (1 source) Fatigue; Translations: [Other fatigue] 05-04-2024 Episodic Nonspecific chest pain (12 sources) Chest pain; Translations: [Chest pain, unspecified] Onset: 06-07-2025 03-11-2019 Episodic Other connective tissue disease (1 source) History of repair of hip joint; Translations: [Presence of unspecified artificial hip joint] Onset: 05-03-2002 05-04-2018 Chronic Other lower respiratory disease (2 sources) Dyspnea on exertion; Translations: [Other forms of dyspnea] 05-04-2024 Episodic Other lower respiratory disease (2 sources) Other forms of dyspnea; Translations: [Other forms of dyspnea] Onset: 09-30-2024 Episodic Daniela-; endo-; and myocarditis; cardiomyopathy (except that caused by tuberculosis or sexually transmitted disease) (13 sources) Cardiomyopathy; Translations: [Cardiomyopathy, unspecified] Onset: 06-07-2025 11-03-2022 Chronic Pulmonary heart disease (8 sources) Pulmonary hypertension; Translations: [Pulmonary hypertension, unspecified] 11-01-2022 Chronic Residual codes; unclassified (20 sources) History of repair of mitral valve; Translations: [Other specified postprocedural states] 03-11-2019 Episodic Comment on above: [employer] 32 mm Fut ura ring on 08/12/2015 for severe mitral valve regurgitation due to torn chordae of the posterior leaflet; Spondylosis; intervertebral disc disorders; other back problems (1 source) Degeneration of lumbar intervertebral disc; Translations: [Other intervertebral disc degeneration, lumbar region] Onset: 02-12-2016 02-12-2016 Chronic Unclassified (1 source) Unknown / UNK(Unknown) Onset: 03-15-2017 Viral infection (12 sources) Herpes zoster; Translations: [Zoster without complications] 10-09-2022 Episodic Past or Other Problems Problem Classification Problem Date Documented Date Episodic/Chronic Fracture of neck of femur (hip) (1 source) Closed fracture of trochanter of femur; Translations: [Unspecified trochanteric fracture of unspecified femur, initial encounter for closed fracture] Onset: 05-03-2002 05-04-2018 Episodic Other acquired deformities (1 source) Acquired unequal leg length; Translations: [Unequal limb length (acquired), unspecified site] Onset: 05-03-2002 05-04-2018 Episodic Residual codes; unclassified (4 sources) Other specified postprocedural states; Translations: [Personal history of surgery to heart and great vessels, presenting hazards to health] Onset: 07-23-2024 11-03-2022 Episodic Spondylosis; intervertebral disc disorders; other back problems (2 sources) Brachial neuritis; Translations: [Radiculopathy, cervical region] Onset: 05-03-2002 05-04-2018 Episodic Sprains and strains (1 source) Strain of tendon of medial thigh muscle; Translations: [Strain of adductor muscle, fascia and tendon of unspecified thigh, initial encounter] Onset: 01-05-2018 01-05-2018 Episodic Unclassified (1 source) Z51.81,I10,I25.810 Onset: 03-15-2017 Results Test Name Value Interpretation Reference Range Facility Cardiology Visit Reporton Cardiology Visit Report [facility] [address] [place] [address]. [address] [place] [address] OFFICE VISIT Date of Service: 12/31/24 MR#: [id number] Acct: [id number] Name: ALBERTO ZEALYA Rep #: [id number] : 1935 Provider: LACI majano Age/Sex: 89/M Location: [facility] Status: Signed HPI HPI History of Present Illness Details: This is a pleasant 89-year-old man, who presents to the office today for a cardiovascular monitoring. He has a history of coronary artery disease as well as valvular heart disease. The patient had an echocardiogram done in October 2022 which showed an ejection fraction of 25% with global left-ventricular systolic dysfunction stage III diastolic dysfunction 1-2+ mitral regurgitation mild aortic insufficiency. This is status post mitral valve ring repair and coronary bypass graft surgery PEREYRA to LAD and saphenous vein graft to the OM branch of the circumflex done by Dr. Cabral at [place] in 2014. Repeat echocardiogram after guideline directed medical therapy done September 27, 2023 showed ejection fraction had improved to 45% with posterior basilar mild hypokinesis and posterior mid hypokinesis. There was 1-2+ mitral regurgitation redocumented. He also has a past medical history of paroxysmal atrial fibrillation (perioperatively around this time of cardiovascular surgery), hypertension, and pulmonary hypertension. He continues with left-sided chest tightness. This is worse with activity. He considers this to be brief. He acknowledges bilateral lower extremity edema. He denies palpitations or claudication. He acknowledges shortness of breath with activity. He denies shortness of breath at rest, orthopnea, cough, or PND. He denies lightheadedness, dizziness, near-syncope, or syncope. He acknowledges fatigue. Intake Vital Signs 07/23/24 13:28 12/31/24 09:32 Height 5 ft 4 in 5 ft 4 in Weight: 150 lb BMI 25.7 BP 126/66 H Blood Pressure Location Lt brachial Position Sitting Respiration 14 Pulse 70 Pulse Source Monitor Pulse Oximetry (%) 97 Oxygen Delivery Method room air Intake Visit Reasons: 6 M FU It Infrastructure Architect Required: No Accompanied by: Self Is patient in pain?: No Allergies Iodinated Contrast Media (Iodinated Contrast Media - IV Dye) Allergy (Verified 12/31/24 09:43) Swelling Medications ???Medication ???Instructions ???Recorded ???Confirmed ???Type carvedilol 12.5 mg tablet 12.5 mg PO BID #180 tabs 01/31/24 12/31/24 Rx furosemide 20 mg tablet (Lasix) 20 mg PO Q OTHER DAY PRN Edema/SOB 05/04/24 12/31/24 Rx #30 tabs losartan 50 mg tablet 25 mg PO BID 12/31/24 History Ejection fraction %: 45 Have you fallen in the past year?: No Nurse's Note: Usually takes furosemide 20 mg daily or will occasionally take half a tab instead. Started taking losartan 50 mg, 1/2 tab twice daily. PFSH Medical History Paroxysmal atrial fibrillation Atherosclerosis of [place] coronary artery of [place] heart without angina pectoris Pulmonary hypertension Shingles Surgical History History of mitral valve repair S/P left atrial appendage ligation S/P CABG x 2 Family History Father Colon cancer Heart disease Mother CVA (cerebral vascular accident) Grandfather Heart failure Brother Cancer Brother Heart disease Pacemaker Social History Smoking Status: Never smoker alcohol intake: never substance use type: does not use caffeine: Yes (occasional) Type: coffee and tea ROS Const Const: Positive for fatigue and difficulty sleeping (Occ); Negative for weakness, headache(s), frequent falls, night sweats, daytime sleepiness, excessive sweating or weight gain Eyes Eyes: Positive for blurry vision (R/t macular degeneration) and change in vision (Gradual change) ENT ENT: Positive for balance problems (Occ upon standing or quick movements) and neck pain; Negative for headache(s), dizziness, tinnitus, Nosebleed/epistaxis or bleeding gums Cardio Chest Pain: Yes Character: tightness Onset: exercise Location: left chest Duration: brief Palpitations: No Edema: Bilateral Muscle aches with walking: None Resp Respiratory: Positive for SOB with activity; Negative for SOB at rest, SOB orthopnea SOB lying down, Cough, chest congestion, wheezing, crackles or paroxysmal nocturnal dyspnea GI GI: Positive for heartburn; Negative nausea, vomiting, vomiting blood/hematemesis, bright, red blood in stools or black,tarry stools : Negative for hematuria or frequent nighttime urination/ nocturia Musc Musc: Positive for joint pain (B/L shoulder) and balance problems (Occ upon (more content not included)... Normal [facility] Absolute neutrophil countOrd ered By: Vinod Mejia on 12-28-2024 Neutrophils (Bld) [#/Vol] 3.3 10*3/uL 2.0-7.7 [facility] Anion gap in Serum or Plasma Ordered By: Vinod Mejia on 12-28-2024 Anion gap [Moles/Vol] 10 mmol/L 5- [facility] BUN/creatinine ratioOrdered By: Vinod Mejia on 12-28-2024 Urea nitrogen/Creatinine [Mass ratio] 22.2 mg/mg High 10-20 [facility] Basophil percentageOrdered B y: Vinod Mejia on 12-28-2024 Basophils/100 WBC (Bld) 0.7 % 0-1 [facility] Bilirubin, totalOrdered By: Vinod Mejia on 12-28-2024 Bilirubin [Mass/Vol] 0.71 mg/dL 0.00-1.30 [facility] CBC W/Diff, Automatedon 12-05 Absolute Lymph 1.52 X10 3/uL Normal 0.83-4.51 [facility] Comment on above: Order Comment: Order Date: 12/20/24 Order Info: 0184-1 - CBCD Performed By: #### L 100.0100, L501.5200, L500.4050 #### [facility] [address] [place], [address] Absolute Neut 3.3 X10 3/uL Normal 2.0-7.7 [facility] Comment on above: Order Comment: Order Date: 12/20/24 Order Info: 0184-1 - CBCD Performed By: #### L 100.0100, L501.5200, L500.4050 #### [facility] [address] [place], [address] Basophils/100 WBC (Bld) 0.7 % Normal 0-1 [facility] Comment on above: Order Comment: Order Date: 12/20/24 Order Info: 0184-1 - CBCD Performed By: #### L 100.0100, L501.5200, L500.4050 #### [facility] [address] [place], [address] Eosinophils/100 WBC (Bld) 1.7 % Normal 0-5 [facility] Comment on above: Order Comment: Order Date: 12/20/24 Order Info: 0184-1 - CBCD Performed By: #### L 100.0100, L501.5200, L500.4050 #### [facility] [address] [place], [address] Erythrocyte distribution width (RBC) [Ratio] 12.9 % Normal 11.6-14.6 [facility] Comment on above: Order Comment: Order Date: 12/20/24 Order Info: 0184- - CBCD Performed By: #### L 100.0100, L501.5200, L500.4050 #### [facility] [address] [place], [address] Hematocrit (Bld) [Volume fraction] 41.0 % Normal 40-54 [facility] Comment on above: Order Comment: Order Date: 12/20/24 Order Info: 0184- - CBCD Performed By: #### L 100.0100, L501.5200, L500.4050 #### [facility] [address] [place], [address] Hemoglobin (Bld) [Mass/Vol] 14.4 g/dL Normal 13.0-16.5 [facility] Comment on above: Order Comment: Order Date: 12/20/24 Order Info: 0184-1 - CBCD Performed By: #### L 100.0100, L501.5200, L500.4050 #### [facility] [address] [place], [address] IG% 0.200 Normal 0.0-0.9 [facility] Comment on above: Order Comment: Order Date: 12/20/24 Order Info: 0184-1 - CBCD Result Comment: IG% - Immature Granulocytes (promyelocytes, myelocytes and metamyelocytes) > 1% indicates that a LEFT SHIFT is Present. Performed By: #### L 100.0100, L501.5200, L500.4050 #### [facility] [address] [place], [address] Lymphocytes/100 WBC (Bld) 26.4 % Normal 19-41 [facility] Comment on above: Order Comment: Order Date: 12/20/24 Order Info: 0184-1 - CBCD Performed By: #### L 100.0100, L501.5200, L500.4050 #### [facility] [address] [place], [address] MCH (RBC) [Entitic mass] 33.3 pg High 27.0-32.0 [facility] Comment on above: Order Comment: Order Date: 12/20/24 Order Info: 0184-1 - CBCD Performed By: #### L 100.0100, L501.5200, L500.4050 #### [facility] [address] [place], [address] MCHC (RBC) [Mass/Vol] 35.1 g/dL Normal 32-36 [facility] Comment on above: Order Comment: Order Date: 12/20/24 Order Info: 0184-1 - CBCD Performed By: #### L 100.0100, L501.5200, L500.4050 #### [facility] [address] [place], [address] MCV (RBC) [Entitic vol] 94.9 fL High 80-94 [facility] Comment on above: Order Comment: Order Date: 12/20/24 Order Info: 0184-1 - CBCD Performed By: #### L 100.0100, L501.5200, L500.4050 #### [facility] [address] [place], [address] Monocytes/100 WBC (Bld) 14.1 % High 0-10 [facility] Comment on above: Order Comment: Order Date: 12/20/24 Order Info: 0184-1 - CBCD Performed By: #### L 100.0100, L501.5200, L500.4050 #### [facility] [address] [place], [address] Neutrophils/100 WBC (Bld) 56.9 % Normal 47-70 [facility] Comment on above: Order Comment: Order Date: 12/20/24 Order Info: 0184-1 - CBCD Performed By: #### L 100.0100, L501.5200, L500.4050 #### [facility] [address] [place], [address] Nucleated RBC (Bld) [#/Vol] 0 10*3/uL Normal 0-5 [facility] Comment on above: Order Comment: Order Date: 12/20/24 Order Info: 0184-1 - CBCD Performed By: #### L 100.0100, L501.5200, L500.4050 #### [facility] [address] [place], [address] Platelet mean volume (Bld) [Entitic vol] 10.6 fL Normal 6.2-12.0 [facility] Comment on above: Order Comment: Order Date: 12/20/24 Order Info: 0184-1 - CBCD Performed By: #### L 100.0100, L501.5200, L500.4050 #### [facility] [address] [place], [address] Platelets (Bld) [#/Vol] 191 10*3/uL Normal 150-450 [facility] Comment on above: Order Comment: Order Date: 12/20/24 Order Info: 0184-1 - CBCD Performed By: #### L 100.0100, L501.5200, L500.4050 #### [facility] [address] [place], [address] RBC (Bld) [#/Vol] 4.32 10*6/uL Low 4.6-6.2 [facility] Comment on above: Order Comment: Order Date: 12/20/24 Order Info: 0184-1 - CBCD Performed By: #### L 100.0100, L501.5200, [id number] #### [facility] [address] [place], [address] RDW SD 45.1 fl High 35.1-43.9 [facility] Comment on above: Order Comment: Order Date: 12/20/24 Order Info: 0184- - CBCD Performed By: #### L 100.0100, L501.5200, [id number] #### [facility] [address] [place], [address] WBC (Bld) [#/Vol] 5.8 10*3/uL Normal 4.4-11.0 [facility] Comment on above: Order Comment: Order Date: 12/20/24 Order Info: 0184- - CBCD Performed By: #### L 100.0100, L501.5200, L500.4050 #### [facility] [address] [place], [address] Carbon dioxide, total [Moles /volume] in Central venous bloodOrdered By: Vinod Mejia on 12-28-2024 CO2 [Moles/Vol] 25.5 mmol/L 21.0-32.0 [facility] Chloride assayOrdered By: Zeynep Mejia on 12-28-2024 Chloride [Moles/Vol] 105 mmol/L 98-108 [facility] Comprehensive Metabolic Prof ilon 12-28-2024 Albumin [Mass/Vol] 4.1 g/dL Normal 3.4-4.8 [facility] Comment on above: Order Comment: Order Date: 12/20/24 Order Info: [id number] - CMP Order Info: [id number] - MG Performed By: #### L 100.0100, L501.5200, L500.4050 #### [facility] [address] [place], [address] Albumin/Globulin [Mass ratio] 1.4 {ratio} Normal 0.9-2.4 [facility] Comment on above: Order Comment: Order Date: 12/20/24 Order Info: 0786-1 - CMP Order Info: [id number] - MG Performed By: #### L 100.0100, L501.5200, L500.4050 #### [facility] [address] [place], [address] ALK PHOS 72 U/L Normal 40-129 [facility] Comment on above: Order Comment: Order Date: 12/20/24 Order Info: 0786-1 - CMP Order Info: [id number] - MG Performed By: #### L 100.0100, L501.5200, L500.4050 #### [facility] [address] [place], [address] ALT [Catalytic activity/Vol] 19 U/L Normal <=46 [facility] Comment on above: Order Comment: Order Date: 12/20/24 Order Info: [id number] - CMP Order Info: [id number] - MG Performed By: #### L 100.0100, L501.5200, L500.4050 #### [facility] [address] [place], [address] AST [Catalytic activity/Vol] 30 U/L Normal <=37 [facility] Comment on above: Order Comment: Order Date: 12/20/24 Order Info: 0786-1 - CMP Order Info: [id number] - MG Performed By: #### L 100.0100, L501.5200, L500.4050 #### [facility] [address] [place], [address] Bilirubin [Mass/Vol] 0.71 mg/dL Normal 0.00-1.30 [facility] Comment on above: Order Comment: Order Date: 12/20/24 Order Info: 0786-1 - CMP Order Info: [id number] - MG Performed By: #### L 100.0100, L501.5200, L500.4050 #### [facility] [address] [place], [address] BUN/CRE 22.2 RATIO High 10-20 [facility] Comment on above: Order Comment: Order Date: 12/20/24 Order Info: 0786-1 - CMP Order Info: [id number] - MG Performed By: #### L 100.0100, L501.5200, L500.4050 #### [facility] [address] [place], [address] Calcium [Mass/Vol] 9.2 mg/dL Normal 7.6-11.0 [facility] Comment on above: Order Comment: Order Date: 12/20/24 Order Info: 0786-1 - CMP Order Info: [id number] - MG Performed By: #### L 100.0100, L501.5200, L500.4050 #### [facility] [address] [place], [address] Chloride [Moles/Vol] 105 mmol/L Normal 98-108 [facility] Comment on above: Order Comment: Order Date: 12/20/24 Order Info: 0786-1 - CMP Order Info: [id number] - MG Performed By: #### L 100.0100, L501.5200, L500.4050 #### [facility] [address] [place], [address] CO2 [Moles/Vol] 25.5 mmol/L Normal 21.0-32.0 [facility] Comment on above: Order Comment: Order Date: 12/20/24 Order Info: 0786-1 - CMP Order Info: [id number] - MG Performed By: #### L 100.0100, L501.5200, L500.4050 #### [facility] [address] [place], [address] Creatinine [Mass/Vol] 1.11 mg/dL Normal 0.70-1.20 [facility] Comment on above: Order Comment: Order Date: 12/20/24 Order Info: 0786-1 - CMP Order Info: [id number] - MG Performed By: #### L 100.0100, L501.5200, L500.4050 #### [facility] [address] [place], [address] GAP 10 Normal 5-15 [facility] Comment on above: Order Comment: Order Date: 12/20/24 Order Info: 0786-1 - CMP Order Info: [id number] - MG Performed By: #### L 100.0100, L501.5200, L500.4050 #### [facility] [address] [place], [address] GFR/1.73 sq M.predicted among non-blacks MDRD (S/P/Bld) [Vol rate/Area] 64 mL/min/{1.73_m2} Normal >60 [facility] Comment on above: Order Comment: Order Date: 12/20/24 Order Info: 0786-1 - CMP Order Info: [id number] - MG Result Comment: mL/m in/1.73m2 CKD-EPI Creatinine Equation (2020) Performed By: #### L 100.0100, L501.5200, L500.4050 #### [facility] [address] [place], [address] Globulin (S) [Mass/Vol] 3.0 g/dL Normal 2.2-4.2 [facility] Comment on above: Order Comment: Order Date: 12/20/24 Order Info: 0786-1 - CMP Order Info: [id number] - MG Performed By: #### L 100.0100, L501.5200, L500.4050 #### [facility] [address] [place], [address] Glucose [Mass/Vol] 99 mg/dL Normal 70-99 [facility] Comment on above: Order Comment: Order Date: 12/20/24 Order Info: 0786-1 - CMP Order Info: [id number] - MG Performed By: #### L 100.0100, L501.5200, L500.4050 #### [facility] [address] [place], [address] Potassium [Moles/Vol] 4.3 mmol/L Normal 3.3-5.1 [facility] Comment on above: Order Comment: Order Date: 12/20/24 Order Info: 0786-1 - CMP Order Info: [id number] - MG Performed By: #### L 100.0100, L501.5200, L500.4050 #### [facility] [address] [place], [address] Sodium [Moles/Vol] 140 mmol/L Normal 133-145 [facility] Comment on above: Order Comment: Order Date: 12/20/24 Order Info: 0786-1 - CMP Order Info: [id number] - MG Performed By: #### L 100.0100, L501.5200, L500.4050 #### [facility] [address] [place], [address] T PROT 7.1 g/dL Normal 5.9-8.4 [facility] Comment on above: Order Comment: Order Date: 12/20/24 Order Info: 0786-1 - CMP Order Info: [id number] - MG Performed By: #### L 100.0100, L501.5200, L500.4050 #### [facility] [address] [place], [address] Urea nitrogen [Mass/Vol] 25 mg/dL High 4-19 [facility] Comment on above: Order Comment: Order Date: 12/20/24 Order Info: 0786-1 - CMP Order Info: [id number] - MG Performed By: #### L 100.0100, L501.5200, L500.4050 #### [facility] [place], [address] Eosinophil percentageOrdered By: Vinod Mejia on 12-28-2024 Eosinophils/100 WBC (Bld) 1.7 % 0-5 [facility] Erythrocyte distribution wid th (RBC) [Ratio]Ordered By: Vinod Mejia on 12-28-2024 Erythrocyte distribution width (RBC) [Entitic vol] 45.1 fL High 35.1-43.9 [facility] Erythrocyte distribution wid th ratioOrdered By: Vinod Mejia on 12-28-2024 Erythrocyte distribution width (RBC) [Ratio] 12.9 % 11.6-14.6 [facility] GFR/1.73 sq M.predicted jona g non-blacks MDRD (S/P/Bld) [Vol rate/Area]Ordered By: Vinod Mejia on 12-28-2024 Estimated GFR (MDRD) Non-Af Amer 64 >60 [facility] Comment on above: mL/min/1.73m2 CKD-EP I Creatinine Equation (2020) Hematocrit Auto (Bld) [Volum e fraction]Ordered By: Vinod Mejia on 12-28-2024 Hematocrit (Bld) [Volume fraction] 41.0 % 40-54 [facility] Hemoglobin measurementOrdere d By: Vinod Mejia on 12-28-2024 Hemoglobin (Bld) [Mass/Vol] 14.4 g/dL 13.0-16.5 [facility] Immature granulocytes/100 WB C Auto (Bld)Ordered By: Vinod Mejia on 12-28-2024 Immature granulocytes/100 WBC (Bld) 0.200 % 0.0-0.9 [facility] Comment on above: IG% - Immature Granu locytes (promyelocytes, myelocytes and metamyelocytes) > 1% indicates that a LEFT SHIFT is Present. Laboratory - Chemistry and C hemistry - challengeOrdered By: Vinod Mejia on 12-28-2024 AST [Catalytic activity/Vol] 30 U/L <38 [facility] Lymphocytes Auto (Unsp spec) [#/Vol]Ordered By: Vinod Mejia on 12-28-2024 Lymphocytes (Bld) [#/Vol] 1.52 10*3/uL 0.83-4.51 [facility] Lymphocytes/100 WBC Auto (Un sp spec)Ordered By: Vinod Mejia on 12-28-2024 Lymphocytes/100 WBC (Bld) 26.4 % 19-41 [facility] MCV (mean corpuscular volume ) determinationOrdered By: Vinod Mejia on 12-28-2024 MCV (RBC) [Entitic vol] 94.9 fL High 80-94 [facility] Magnesiumon 12-28-2024 Magnesium [Mass/Vol] 2.3 mg/dL High 1.5-2.2 [facility] Comment on above: Order Comment: Order Date: 12/20/24 Order Info: [id number] - CMP Order Info: [id number] - MG Performed By: #### L 100.0100, L501.5200, L500.4050 #### [facility] [address] [place] [address], [address] Magnesium (Unsp spec) [Mass/ Vol]Ordered By: Vinod Mejia on 12-28-2024 Magnesium [Mass/Vol] 2.3 mg/dL High 1.5-2.2 [facility] Mean corpuscular hemoglobin (MCH) determinationOrdered By: Vinod Mejia on 12-28-2024 MCH (RBC) [Entitic mass] 33.3 pg High 27.0-32.0 [facility] Mean corpuscular hemoglobin concentration (MCHC) determinationOrdered By: Vinod Mejia on 12-28-2024 MCHC (RBC) [Mass/Vol] 35.1 g/dL 32-36 [facility] Mean platelet volume determi nationOrdered By: Vinod Mejia on 12-28-2024 Platelet mean volume (Bld) [Entitic vol] 10.6 fL 6.2-12.0 [facility] Monocyte percentageOrdered B y: Vinod Mejia on 12-28-2024 Monocytes/100 WBC (Bld) 14.1 % High 0-10 [facility] Neutrophil percentageOrdered By: Vinod Mejia on 12-28-2024 Neutrophils/100 WBC (Bld) 56.9 % 47-70 [facility] Nucleated red blood cell per centageOrdered By: Vinod Mejia on 12-28-2024 Nucleated RBC/100 WBC (Bld) [Ratio] 0 % 0-5 [facility] Platelet countOrdered By: Zeynep Mejia on 12-28-2024 Platelets (Bld) [#/Vol] 191 10*3/uL 150-450 [facility] Potassium (Unsp spec) [Mass/ Vol]Ordered By: Vinod Mejia on 12-28-2024 Potassium [Moles/Vol] 4.3 mmol/L 3.3-5.1 [facility] RBC Auto (Bld) [#/Vol]Ordere d By: Vinod Mejia on 12-28-2024 RBC (Bld) [#/Vol] 4.32 10*6/uL Low 4.6-6.2 [facility] Serum creatinine measurement (mass/volume)Ordered By: Vinod Mejia on 12-28-2024 Creatinine [Mass/Vol] 1.11 mg/dL 0.70-1.20 [facility] Serum globulin measurementOr dered By: Vinod Mejia on 12-28-2024 Globulin (S) [Mass/Vol] 3.0 g/dL 2.2-4.2 [facility] Serum glucose measurement (m ass/volume)Ordered By: Vinod Mejia on 12-28-2024 Glucose [Mass/Vol] 99 mg/dL 70-99 [facility] Serum or plasma alanine chan otransferase (ALT) measurementOrdered By: Vinod Mejia on 12-28-2024 ALT [Catalytic activity/Vol] 19 U/L <47 [facility] Serum or plasma albumin dwaine urement (mass/volume)Ordered By: Vinod Mejia on 12-28-2024 Albumin [Mass/Vol] 4.1 g/dL 3.4-4.8 [facility] Serum or plasma albumin/glob ulin mass ratioOrdered By: Vinod Mejia on 12-28-2024 Albumin/Globulin [Mass ratio] 1.4 {ratio} 0.9-2.4 [facility] [facility] Serum or plasma alkaline shanika sphatase measurementOrdered By: Vinod Mejia on 12-28-2024 ALP [Catalytic activity/Vol] 72 U/L 40-129 [facility] Serum or plasma calcium dwaine urement (mass/volume)Ordered By: Vinod Mejia on 12-28-2024 Calcium [Mass/Vol] 9.2 mg/dL 7.6-11.0 [facility] Serum or plasma urea nitroge n measurement (mass/volume)Ordered By: Vinod Mejia on 12-28-2024 Urea nitrogen [Mass/Vol] 25 mg/dL High 4-19 [facility] Sodium levelOrdered By: Vinod Mejia on 12-28-2024 Sodium [Moles/Vol] 140 mmol/L 133-145 [facility] Total proteinOrdered By: Carlos Mejia on 12-28-2024 Protein [Mass/Vol] 7.1 g/dL 5.9-8.4 [facility] White blood cell (WBC) count Ordered By: Vinod Mejia on 12-28-2024 WBC (Bld) [#/Vol] 5.8 10*3/uL 4.4-11.0 [facility] PT D/C Summary (1)on 025 PT D/C Summary (1) [facility] [address] [place] [address] / REHABILITATION SERVICES DISCHARGE SUMMARY MR#: [id number] Acct: [id number] Name: ALBERTO ZELAYA Rep #: [id number] : 1935 88 From: Shama Barajas PT, Cert. MDT Referring Dr.: Dr. Olinda Buchanan MD Status: RE G R Insurance: [facility] H[employer] SELF PAY INSURANCE Discharge Summary D/C summary: It has been my pleasure to treat ALBERTO ZELAYA referred by Dr. Olinda Buchanan MD, with the diagnosis of Left trapezius strain for a total of 10 visit(s). Discharge Date: 10/31/24 Please see the following information for a summary of their discharge status. Subjective Subjective: PATIENT REPORTS THE PAIN HE CAME HERE FOR IS CERTAINLY LESS. HE REPORTS HE HAS NOTICED THE MOST IMPROVEMENT IN THE LAST WEEK OR TWO. HE REPORTS HIS PAIN RANGES FROM 0-3/10 NOW. PATIENT STATES IT IS AT THE POINT THAT HE IS COMFORTABLE MANAGING IT ON HIS OWN NOW AND WILL CONSULT HELP IF IT GOES BACKWARDS. Pain L NECK/SHLD: Pain Intensity (Out of 10): 2 Overall Improvement % Improvement: 50 Objective Objective/Function: PATIENT WAS SEEN TODAY FOR RE-ASSESSMENT OF PROGRESS TOWARD THE SET PT GOALS AND THE NEED FOR FURTHER PHYSICAL THERAPY VS READINESS FOR DISCHARGE. UPON EXAM TODAY: THIS PATIENT HAS MADE GOOD PROGRESS WITH PT AND HIS NECK PAIN IS MORE MANAGEABLE NOW. HE HAS BEEN INSTRUCTED IN ACTIVITY MODIFICATIONS AND A HEP. HE IS APPROPRIATE FOR AND AGREEABLE TO DISCHARGE AND WILL FOLLOW UP WITH HIS PHYSICIAN NEEDED. ALTHOUGH HIS NECK PAIN IS LESS IT CAN STILL BE EASILY PROVOKED WITH MVMT IN MOST DIRECTIONS AND HIS SHLD STRENGTH HAS REMAINED UNCHANGED AND PAIN LIMITED (CHRONIC). Goals Goal 1:: Pt. will be independent with home exercise program. Goal Progress: Goal Met Goal 2:: Pt. will be able to look up/down and turn his head with no neck pain. Goal Progress: Progressing Goal 3:: Pt. will be able to read his book with no neck pain. Goal Progress: Progressing Goal 4:: Pt. will rate neck pain at worst at 3/10 with ADL's. Goal Progress: Goal Met Goal 5:: Pt. will improve Quick Dash score by 5% in order to improve ADL's. Goal Progress: Progressing Goal 6:: Pt. will improve bilateral shoulder strength to 4/5 for all motions in order to improve ADL's. Goal Progress: Not Met Plan Plan: D/C. PATIENT AGREEABLE. D/C Information d/c sentence: If there are questions or concerns regarding this patient's physical therapy, please feel free to call me at [phone]. Thank you for the referral of this patient. Sincerely, Shama Barajas, PT, Cert MDT Balance/Gait/Functi onal tests Balance/Special Test Scores Quick DASH Score: 20.4525 Improvement % Improvement: 50 10/31/24 1433 CC: Dr. Olinda Buchanan MD; Dr. Vinod Mejia MD NILDA Signed Normal [facility] Inital Evaluation (1) - PTon 09-27-2024 Inital Evaluation (1) - PT [facility] [address] [place] [address] / REHABILITATION SERVICES INITIAL EVALUATION MR#: [id number] Acct: [id number] Name: ALBERTO ZELAYA Rep #: [id number] : 1935 88 From: Minesh Acharya Referring Dr.: Dr. Olinda Buchanan MD Status: RE G RCR Insurance: [email or web address] [facility] HMO SELF PAY INSURANCE Patient's Visit Information Visit Information Visit Information: ALBERTO ZELAYA is a 88 year old M referred to Physical Therapy by Dr. Olinda Buchanan MD with a diagnosis of Left trapezius strain. Date of Evaluation: 09/27/24 Physical Therapist: Minesh Acharya Visit Plan Frequency: 1-2x /Week Duration: 6 Weeks Plan: Continue with improving neck ROM and neck/scapular strengthening. Continue to educate on postural correction as well. Use manual therapy, modalities, and cervical traction as needed for pain control. Subjective Subjective: Pt. is a 88 y.o. male who has left sided neck pain/tingling which goes from his upper neck to shoulder which has been going on for about 2 weeks. Pt. denies any specific injury. Pt. PLOF includes history of occasional neck pain in the past. He has not had any recent imaging of his cervical spine. Pt. denies any symptoms down past his shoulder. He also reports that he gets headaches at times but is unable to report how often he gets headaches. Pt. has difficulty with looking up/down, turning his head, and reading a book. Pt. is retired. His goal with physical therapy is to decrease his pain. He has had previous physical therapy in the past but he is not sure what for. Pt. rates left sided neck pain at 3/10 currently, at worst 8/10, at best 0/10 and describes the pain grabbing, burning, and intense pressure. He will take Tylenol as needed for pain. His PMH includes CHF, HBP controlled with medication, heart valve surgery, right THR, and right RTC repair. Pt. lives with his son. His hobbies include reading, cleaning, and being outdoors. Objective Objective: Posture- Forward head posture in sitting Palpation- No tenderness to palpation Cervical AROM flexion- 35 degrees, extension 60 degrees, rotation to left- 60 degrees, rotation to right- 58 degrees, SB to left- 18 degrees, SB to right- 26 degrees Left shoulder strength flexion 4+/5, abduction 4-/5, ER 4/5, IR 5/5 Right shoulder strength flexion 5/5, abduction 4+/5, ER 4-/5, IR 5/5 Special tests- Spurling's [-], Cervical distraction [-] Balance/Special Test Scores Quick DASH Score: 27.2725 Goals Goal 1:: Pt. will be independent with home exercise program. Goal Time Frame: 4-6 Weeks Goal 2:: Pt. will be able to look up/down and turn his head with no neck pain. Goal Time Frame: 4-6 Weeks Goal 3:: Pt. will be able to read his book with no neck pain. Goal Time Frame: 4-6 Weeks Goal 4:: Pt. will rate neck pain at worst at 3/10 with ADL's. Goal Time Frame: 4-6 Weeks Goal 5:: Pt. will improve Quick Dash score by 5% in order to improve ADL's. Goal Time Frame: 4-6 Weeks Goal 6:: Pt. will improve bilateral shoulder strength to 4/5 for all motions in order to improve ADL's. Goal Time Frame: 4-6 Weeks Rehabilitation Potential Physical Therapy Diagnosis: Decreased cervical ROM, UE weakness, posture, and pain Rehabilitation Potential: Good Anticipated Interventions Patient/Client Instruction: Educate patient on: Condition and Plan of Care For the Purpose of:: To decrease pain, To improve ability to perform ADL's, To improve performance and independence with ADL's, To assume or resume ADL's and To improve tolerance to ADL's Therapeutic Exercise to Include: Strength training, Postural training, Active ROM, Fara Exercises and Scapular Strength/Stabilizat ion Comment: Continue with improving cervical ROM and neck/scapular strengthening. For the Purpose of:: To decrease pain, To increase ROM, To improve ability to perform ADL's, To improve performance and independence with ADL's, To increase flexibility/ROM and To improve tolerance to ADL's Functional Training to Include: ADL Training For the Purpose of:: To decrease pain, To improve ability to perform ADL's, To improve performance and independence with ADL's and To improve tolerance to ADL's Manual Therapy Techniques to Include: Trigger point massage, Mobilization, Passive ROM and Soft tissue mobilization For the Purpose of:: To decrease pain, To increase ROM, To improve ability to perform ADL's, To improve performance and independence with ADL's, To increase flexibility/ROM and To improve tolerance to ADL's TENS: Yes IF ES: Yes Cryotherapy (ice pack, ice massage): Yes Intermittent cervical traction: Yes For the Purpose of:: To decrease pain, To improve ability to perform ADL's, To improve performance and independence with ADL's and To improve tolerance to ADL's Text: (more content not included)... Normal [facility] Stress Reporton 09-07-2024 Stress Report [facility] [address] [place] [address] MR#: [id number] Acct: [id number] Name: ALBERTO ZELAYA Rep #: [id number] : 1935 88 From: Osvaldo Sewell MD Primary Care: Dr. Vinod Mejia MD Status: REG CLI Referring Dr: Raz Schmitz MD Sex: M C Stress Test Report Pharmacologic myocardial perfusion stress test. 88-year-old man with a history of dyspnea on exertion Resting EKG demonstrates sinus bradycardia with a rate of 54 bpm. Resting blood pressure is 167/79 mmHg. 0.4 mg of regadenoson was infused per usual protocol followed by rapid intravenous saline flush injection. Continuous EKG monitoring was performed. The maximum heart rate was 75 bpm which was 55% of max impacted heart rate the maximum workload was 1 metabolic equivalent. At rest there were no ST or T wave changes noted to suggest ischemia and at peak infusion nonspecific ST changes were noted which did not meet the criteria for ischemia. No clinical angina is noted. The final blood pressure was 152/70 mmHg. Myocardial perfusion protocol. 11.7 mCi of technetium 99m sestamibi was injected at rest. 0.4 mg of regadenoson was infused per usual protocol. At peak infusion 34.3 mCi of technetium 99m sestamibi was injected stress images were obtained stress and rest images were reconstructed and compared in the short axis vertical long and horizontal long axis. Gated images were also obtained. Perfusion SPECT analysis: Review of the stress images demonstrate normal uptake of tracer noted in all areas of the myocardium. The resting images similar demonstrated normal uptake of tracer noted in all areas of the myocardium. No areas of reversibility are noted to suggest ischemia and no previous infarct is noted. Gated SPECT analysis: The gated ejection fraction is 42%. Conclusion: Normal pharmacologic myocardial perfusion stress test. Mildly reduced ejection fraction. 09/07/2451 Date Osvaldo Sewell MD CC: Dr. Vinod Mejia MD; Dr. Raz Schmitz MD Date Dictated: 09/07/24946 Date Transcribed: 09/07/24946 Contact Clerk: CO Signed Normal [facility] 12 Lead EKG performed by [facility] on 07-23-2024 12 Lead EKG performed by [address] [address] 12 Lead EKG performed by [facility] 07/23/24 1327 MR#: [id number] Acct: [id number] Name: ALBERTO ZELAYA Rep #: [id number] : 1935 88 From: Raz Schmitz MD Attending Dr: Dr. 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 - Nonspecific T-abnormality. ABNORMAL Electronically signed on 07/23/2024 at 16:[address] Raz Schmitz [employer] Version 8610 07/23/24 1642 Date Raz Schmitz MD CC: Dr. Vinod Mejia MD Date Dictated: 07/23/241326 Date Transcribed: 07/23/241326 Contact Clerk: Signed Normal [facility] BNP,B-Type NATRIURETIC PEPTI Tigre 07-23-2024 Natriuretic peptide B (Bld) [Mass/Vol] 832.1 pg/mL High 0-100 [facility] Comment on above: Performed By: #### L 100.0500, L500.4050, L503.6620 #### [facility] [address] [place], [address] CBC-Complete Blood Cnt No Di ffon 07-23-2024 Erythrocyte distribution width (RBC) [Ratio] 12.6 % Normal 11.6-14.6 [facility] Comment on above: Performed By: #### L 100.0500, L500.4050, L503.6620 #### [facility] [address] [place], [address] Hematocrit (Bld) [Volume fraction] 40.7 % Normal 40-54 [facility] Comment on above: Performed By: #### L 100.0500, L500.4050, L503.6620 #### [facility] [address] [place], [address] Hemoglobin (Bld) [Mass/Vol] 13.4 g/dL Normal 13.0-16.5 [facility] Comment on above: Performed By: #### L 100.0500, L500.4050, L503.6620 #### [facility] [address] [place], [address] MCH (RBC) [Entitic mass] 32.1 pg High 27.0-32.0 [facility] Comment on above: Performed By: #### L 100.0500, L500.4050, L503.6620 #### [facility] [address] [place], [address] MCHC (RBC) [Mass/Vol] 32.9 g/dL Normal 32-36 [facility] Comment on above: Performed By: #### L 100.0500, L500.4050, L503.6620 #### [facility] [address] [place], [address] MCV (RBC) [Entitic vol] 97.6 fL High 80-94 [facility] Comment on above: Performed By: #### L 100.0500, L500.4050, L503.6620 #### [facility] [address] [place], [address] Platelet mean volume (Bld) [Entitic vol] 11.1 fL Normal 6.2-12.0 [facility] Comment on above: Performed By: #### L 100.0500, L500.4050, L503.6620 #### [facility] [address] [place], [address] Platelets (Bld) [#/Vol] 212 10*3/uL Normal 150-450 [facility] Comment on above: Performed By: #### L 100.0500, L500.4050, L503.6620 #### [facility] [address] [place], [address] RBC (Bld) [#/Vol] 4.17 10*6/uL Low 4.6-6.2 [facility] Comment on above: Performed By: #### L 100.0500, L500.4050, L503.6620 #### [facility] [address] [place], [address] RDW SD 45.5 fl High 35.1-43.9 [facility] Comment on above: Performed By: #### L 100.0500, L500.4050, L503.6620 #### [facility] [address] [place], [address] WBC (Bld) [#/Vol] 5.9 10*3/uL Normal 4.4-11.0 [facility] Comment on above: Performed By: #### L 100.0500, L500.4050, L503.6620 #### [facility] [address] [place], [place], [address] Cardiology Visit Reporton Cardiology Visit Report [facility] [address] [place] [address] OFFICE VISIT Date of Service: 07/23/24 MR#: [id number] Acct: [id number] Name: ALBERTO ZELAYA Rep #: [id number] : 1935 Provider: Dr. Raz ramirez MD Age/Sex: 88/M Location: [facility] [place] Status: Signed HPI HPI History of Present Illness Details: This is a pleasant 88-year-old man, who presents to the office today for a cardiovascular monitoring. He has a history of coronary artery disease as well as valvular heart disease. The patient had an echocardiogram done in October 2022 which showed an ejection fraction of 25% with global left- ventricular systolic dysfunction stage III diastolic dysfunction 1-2+ mitral regurgitation mild aortic insufficiency. This is status post mitral valve ring repair and coronary bypass graft surgery PEREYRA to LAD and saphenous vein graft to the OM branch of the circumflex done by Dr. Cabral at [place] in 2014. Repeat echocardiogram after guideline directed medical therapy done September 27, 2023 showed ejection fraction had improved to 45% with posterior basilar mild hypokinesis and posterior mid hypokinesis. There was 1-2+ mitral regurg redocumented. He also has a past medical history of paroxysmal atrial fibrillation (perioperatively around this time of cardiovascular surgery), hypertension, and pulmonary hypertension. Patient now comes in with some very vague complaints of chest discomfort in his left upper chest when he hurries to accomplish his tasks that he sets out for himself to do on a daily basis. Today the patient blew his leaves away from the house with a leaf blower and did not have any symptoms. He actually climbed a ladder and got up on his roof and fix the shingle that was out of place. At other times when he is trying to peterson around to do task he will get some discomfort that resolved spontaneously after a period of time. He does also notice some dyspnea on exertion. The patient denies any PND orthopnea denies any significant lower extremity edema he wears boots. He is able to walk at a slow pace but if he pushes himself or walks uphill he gets shortness of breath. The patient was in the office here a month ago with an elevated BNP and he was placed on Lasix. Since that time he reports no real change in his symptoms. He had been on spironolactone but that was discontinued due to him complaining of hair falling out and his hairbrush being full of hair when he would brush his hair. That has resolved since he stopped the spironolactone. Intake Vital Signs 06/22/24 08:42 07/23/24 13:28 Height 5 ft 4 in 5 ft 4 in Weight: 137 lb 139 lb BMI 23.5 23.8 BP 158/84 H 145/67 H Blood Pressure Location Lt brachial Lt brachial Position Sitting Sitting Respiration 18 16 Pulse 76 66 Pulse Source Monitor NIBP Intake Visit Reasons: 1 M FU It Infrastructure Architect Required: No Is patient in pain?: No Allergies Iodinated Contrast Media (Iodinated Contrast Media - IV Dye) Allergy (Verified 07/23/24 13:32) Swelling Medications ???Medication ???Instructions ???Recorded ???Confirmed ???Type carvedilol 12.5 mg tablet 12.5 mg PO BID #180 tabs 01/31/24 07/23/24 Rx furosemide 20 mg tablet (Lasix) 20 mg PO Q OTHER DAY PRN Edema/SOB 05/04/24 07/23/24 Rx #30 tabs losartan 50 mg tablet 50 mg PO BID #180 tabs 06/22/24 07/23/24 Rx Ejection fraction %: 45 Have you fallen in the past year?: No PFSH Medical History Paroxysmal atrial fibrillation Atherosclerosis of [place] coronary artery of [place] heart without angina pectoris Pulmonary hypertension Shingles Surgical History History of mitral valve repair S/P left atrial appendage ligation S/P CABG x 2 Family History Father Colon cancer Heart disease Mother CVA (cerebral vascular accident) Grandfather Heart failure Brother Cancer Brother Heart disease Pacemaker Social History Smoking Status: Never smoker alcohol intake: never substance use type: does not use caffeine: Yes (occasional) Type: coffee and tea ROS Const Const: Negative for fatigue or weakness Eyes Eyes: Negative for change in vision ENT ENT: Positive for dizziness (Occasionally when changing position); Negative for balance problems Cardio Chest Pain: Yes Character: other (Pressure) Onset: other Duration: brief Palpitations: No Edema: Bilateral (Mild, above the socks intermittently) Resp Respiratory: Positive for SOB with activity (Gets SOB quickly); Negative for SOB at rest or SOB orthopnea SOB lying down GI GI: Negative nausea or heartburn Musc Musc: (more content not included)... Normal [facility] Comprehensive Metabolic Prof vinicius 07-23-2024 Albumin [Mass/Vol] 3.4 g/dL Normal 3.2-5.0 [facility] Comment on above: Performed By: #### L 100.0500, L500.4050, [id number] #### [facility] [address] [place], [address] Albumin/Globulin [Mass ratio] 1.0 {ratio} Normal 0.9-2.4 [facility] Comment on above: Performed By: #### L 100.0500, L500.4050, [id number] #### [facility] [address] [place], [address] ALK P 75 U/L Normal 45-117 [facility] Comment on above: Performed By: #### L 100.0500, L500.4050, [id number] #### [facility] [address] [place], [address] ALT [Catalytic activity/Vol] 34 U/L Normal 16-61 [facility] Comment on above: Performed By: #### L 100.0500, L500.4050, [id number] #### [facility] [address] [place], [address] AST [Catalytic activity/Vol] 27 U/L Normal 15-37 [facility] Comment on above: Performed By: #### L 100.0500, L500.4050, [id number] #### [facility] [address] [place], [address] Bilirubin [Mass/Vol] 0.60 mg/dL Normal 0.20-1.00 [facility] Comment on above: Result Comment: For patients on eltrombopag therapy, use of Dimension [place] TBIL is not recommended. Performed By: #### L 100.0500, L500.4050, [id number] #### [facility] [address] [place], [address] BUN/CRE 24.7 RATIO High 10-20 [facility] Comment on above: Performed By: #### L 100.0500, L500.4050, [id number] #### [facility] [address] [place], [address] CA,Total 8.8 mg/dL Normal 8.5-10.1 [facility] Comment on above: Performed By: #### L 100.0500, L500.4050, [id number] #### [facility] [address] [place], [address] Chloride [Moles/Vol] 107 mmol/L Normal 98-107 [facility] Comment on above: Performed By: #### L 100.0500, L500.4050, [id number] #### [facility] [address] [place], [address] CO2 [Moles/Vol] 27.0 mmol/L Normal 21.0-32.0 [facility] Comment on above: Performed By: #### L 100.0500, L500.4050, [id number] #### [facility] [address] [place], [address] Creatinine [Mass/Vol] 0.97 mg/dL Normal 0.70-1.30 [facility] Comment on above: Result Comment: The validity of the calculated GFR GFRAA in patients over 70 years has not been determined. Clinical correlation is essential. Performed By: #### L 100.0500, L500.4050, L503.6620 #### [facility] [address] [place], [address] EST GFR - AA 94 mL/min Normal >60 [facility] Comment on above: Result Comment: Afri can Nepalese GFR Calc Performed By: #### L 100.0500, L500.4050, [id number] #### [facility] [address] [place], [address] GAP 7 Normal 5-15 [facility] Comment on above: Performed By: #### L 100.0500, L500.4050, [id number] #### [facility] [address] [place], [address] GFR/1.73 sq M.predicted among non-blacks MDRD (S/P/Bld) [Vol rate/Area] 78 mL/min/{1.73_m2} Normal >60 [facility] Comment on above: Result Comment: Non- GFR Calc Performed By: #### L 100.0500, L500.4050, [id number] #### [facility] [address] [place], [address] Globulin (S) [Mass/Vol] 3.5 g/dL Normal 2.2-4.2 [facility] Comment on above: Performed By: #### L 100.0500, L500.4050, [id number] #### [facility] [address] [place], [address] Glucose [Mass/Vol] 92 mg/dL Normal 74-106 [facility] Comment on above: Performed By: #### L 100.0500, L500.4050, [id number] #### [facility] [address] [place], [address] Potassium [Moles/Vol] 4.2 mmol/L Normal 3.5-5.1 [facility] Comment on above: Performed By: #### L 100.0500, L500.4050, [id number] #### [facility] [address] [place], [address] Sodium [Moles/Vol] 142 mmol/L Normal 136-145 [facility] Comment on above: Performed By: #### L 100.0500, L500.4050, [id number] #### [facility] [address] [place], [address] T PROT 6.9 g/dL Normal 6.4-8.2 [facility] Comment on above: Performed By: #### L 100.0500, L500.4050, [id number] #### [facility] [address] [place], [address] Urea nitrogen [Mass/Vol] 24 mg/dL High 7-18 [facility] Comment on above: Performed By: #### L 100.0500, L500.4050, [id number] #### [facility] [address] [place], [address] Cardiology Visit Reporton Cardiology Visit Report [facility] [address] [place] [address] OFFICE VISIT Date of Service: 06/22/24 MR#: [id number] Acct: [id number] Name: ALBERTO ZELAYA Rep #: [id number] : 1935 Provider: LACI majano Age/Sex: 88/M Location: [facility] [place] Status: Signed HPI [facility] History of Present Illness Details: This is a pleasant 88-year-old man, who presents to the office today for a cardiovascular follow up visit. He has a history of coronary artery disease as well as valvular heart disease. The patient had an echocardiogram done in October 2022 which showed an ejection fraction of 25% with global left-ventricular systolic dysfunction stage III diastolic dysfunction 1-2+ mitral regurgitation mild aortic insufficiency. This is status post mitral valve ring repair and coronary bypass graft surgery PEREYRA to LAD and saphenous vein graft to the OM branch of the circumflex done by Dr. Cabral at [place] in 2014. Repeat echocardiogram done September 27, 2023 showed ejection fraction had improved to 45% with posterior basilar mild hypokinesis and posterior mid hypokinesis. There was 1-2+ mitral regurg redocumented. He also has a past medical history of paroxysmal atrial fibrillation, hypertension, and pulmonary hypertension. He denies chest, arm, jaw, or neck discomfort. He denies palpitations. He states intermittent bilateral lower extremity edema. He denies claudication. He states shortness of breath with activity such as walking upwards to 200 feet. He denies shortness of breath at rest, orthopnea, or PND. He denies chronic cough. He denies significant, sudden weight gain. He denies lightheadedness, dizziness, near-syncope, or syncope. He denies blood in urine, blood in stool, or epistaxis. He denies fever with chills. He denies myalgia. He denies fatigue. His exercise level has remained stable. Intake Vital Signs 05/04/24 10:53 06/22/24 08:42 Height 5 ft 4 in 5 ft 4 in Weight: 137 lb 137 lb BMI 23.5 23.5 BP 137/73 H 158/84 H Blood Pressure Location Lt brachial Lt brachial Position Sitting Sitting Respiration 18 18 Pulse 54 L 76 Pulse Source Monitor Monitor Pulse Oximetry (%) 97 Intake Visit Reasons: See Clinical Note It Infrastructure Architect Required: No Is patient in pain?: No Allergies Iodinated Contrast Media (Iodinated Contrast Media - IV Dye) Allergy (Verified 06/22/24 08:43) Swelling Medications ???Medication ???Instructions ???Recorded ???Confirmed ???Type carvedilol 12.5 mg tablet 12.5 mg PO BID #180 tabs 01/31/24 06/22/24 Rx furosemide 20 mg tablet (Lasix) 20 mg PO Q OTHER DAY PRN Edema/SOB 05/04/24 06/22/24 Rx #30 tabs losartan 50 mg tablet 50 mg PO BID #180 tabs 06/22/24 06/22/24 Rx Have you fallen in the past year?: No PFSH Medical History Paroxysmal atrial fibrillation Atherosclerosis of [place] coronary artery of [place] heart without angina pectoris Pulmonary hypertension Shingles Surgical History History of mitral valve repair S/P left atrial appendage ligation S/P CABG x 2 Family History Father Colon cancer Heart disease Mother CVA (cerebral vascular accident) Grandfather Heart failure Brother Cancer Brother Heart disease Pacemaker Social History Smoking Status: Never smoker alcohol intake: never substance use type: does not use caffeine: Yes (occasional) Type: coffee and tea ROS Const Const: Negative for fatigue, weakness, body ache, fever(s) or chills ENT ENT: Negative for dizziness or Nosebleed/epistaxis Cardio Chest Pain: No Palpitations: No Edema: Bilateral Muscle aches with walking: None Resp Respiratory: Positive for SOB with activity; Negative for SOB at rest, SOB orthopnea SOB lying down, Cough or paroxysmal nocturnal dyspnea GI GI: Negative nausea, vomiting blood/hematemesis, bright, red blood in stools or black,tarry stools : Negative for hematuria or frequent nighttime urination/ nocturia Musc Musc: Negative for muscle aches/ myalgia Skin Skin: Negative non-healing lesions or rash Neuro Neuro: Negative for dizziness, lightheadedness, near syncope, syncope, orthostatic symptoms or weakness Endo Endo: Negative for fatigue Allergy Allergy/Immunology: Negative for rash Cardiology Exam Const Appearance: cooperative, healthy appearing, comfortable and no acute distress Nutritional Appearance: average body habitus and well nourished Orientation: alert, awake and oriented x3 Head Head: normal to inspection Ears: hearing grossly normal bilaterally Nose: external nose normal Face and Sinus: face symmetric Mouth: (more content not included)... Normal [facility] Absolute lymphocyte countOrd ered By: Vinod Mejia on 01-04-2024 Lymphocytes Auto (Unsp spec) [#/Vol] 1.11 10*3/uL 0.83-4.51 [facility] Automated lymphocyte count a s percentage of total leukocytesOrdered By: Vinod Mejia on 01-04-2024 Lymphocytes/100 WBC Auto (Unsp spec) 23.4 % 19-41 [facility] Basophil percentageOrdered B y: Vinod Mejia on 01-04-2024 Basophil percentage 0 SEEN /hpf 0-5 [facility] Basophils/100 WBC (Bld) 0.8 % 0-1 [facility] Bilirubin [Mass/Vol] 0.80 mg/dL 0.20-1.00 [facility] Comment on above: For patients on eltr ombopag therapy, use of Dimension [place] TBIL is not recommended. Chloride [Moles/Vol] 107 mmol/L 98-107 [facility] Cholesterol [Mass/Vol] 153 mg/dL <200 [facility] Comment on above: <200 mg/dL Desirable 200-240 mg/dL Borderline >240 mg/dL High Risk Eosinophils/100 WBC (Bld) 1.9 % 0-5 [facility] Glucose [Mass/Vol] 80 mg/dL 74-106 [facility] Hemoglobin (Bld) [Mass/Vol] 14.3 g/dL 13.0-16.5 [facility] Monocytes/100 WBC (Bld) 10.8 % 0-10 [facility] Neutrophils (Bld) [#/Vol] 3.0 10*3/uL 2.0-7.7 [facility] Neutrophils/100 WBC (Bld) 62.9 % 47-70 [facility] Potassium [Moles/Vol] 4.0 mmol/L 3.5-5.1 [facility] Protein [Mass/Vol] 7.0 g/dL 6.4-8.2 [facility] Sodium [Moles/Vol] 140 mmol/L 136-145 [facility] Triglyceride [Mass/Vol] 52 mg/dL <199 [facility] Comment on above: The drugs N-Acetylcy steine and Metamizole may falsely depress this assay.Serum Triglycerides Reference Interval Normal <150 mg/dL Borderline high 150 - 199 mg/dL High 200 - 499 mg/dL Very High > or = 500 mg/dL WBC (Bld) [#/Vol] 4.7 10*3/uL 4.4-11.0 [facility] Bilirubin Test strip Ql (U)O rdered By: Vinod Mejia on 01-04-2024 Bilirubin Ql (U) Negative Negative [facility] Determination of erythrocyte mean corpuscular volume (MCV)Ordered By: Vinod Mejia on 01-04-2024 MCV (RBC) [Entitic vol] 95.7 fL 80-94 [facility] Erythrocyte distribution wid th ratioOrdered By: Vinod Mejia on 01-04-2024 Erythrocyte distribution width (RBC) [Ratio] 13.6 % 11.6-14.6 [facility] Erythrocyte distribution wid th standard deviationOrdered By: Vinod Mejia on 01-04-2024 Erythrocyte distribution width (RBC) [Entitic vol] 48.6 fL 35.1-43.9 [facility] Hematocrit Auto (Bld) [Volum e fraction]Ordered By: Vinod Mejia on 01-04-2024 Hematocrit (Bld) [Volume fraction] 42.2 % 40-54 [facility] Immature granulocytes/100 WB C Auto (Bld)Ordered By: Vinod Mejia on 01-04-2024 Immature granulocytes/100 WBC (Bld) 0.200 % 0.0-0.9 [facility] Comment on above: IG% - Immature Granu locytes (promyelocytes, myelocytes and metamyelocytes) > 1% indicates that a LEFT SHIFT is Present. Ketones Test strip Ql (U)Ord ered By: Vinod Mejia on 01-04-2024 Ketones Ql (U) Negative Negative [facility] - Chemistry and C hemistry - challengeOrdered By: Vinod Mejia on 01-04-2024 Albumin/Globulin [Mass ratio] 0.9 {ratio} 0.9-2.4 [facility] ALP [Catalytic activity/Vol] 67 U/L 45-117 [facility] ALT [Catalytic activity/Vol] 25 U/L 16-61 [facility] Cholesterol in HDL [Mass/Vol] 60 mg/dL >40 [facility] Comment on above: The drugs N-Acetylcy steine and Metamizole may falsely depress this assay. Reference Range HDL <40 mg/dL Low HDL Cholesterol HDL >or= 60 mg/dL High HDL Cholesterol Cholesterol in LDL [Mass/Vol] 83 mg/dL 0-130 [facility] CO2 [Moles/Vol] 28.0 mmol/L 21.0-32.0 [facility] Globulin (S) [Mass/Vol] 3.6 g/dL 2.2-4.2 [facility] Magnesium [Mass/Vol] 2.4 mg/dL 1.6-2.6 [facility] Urea nitrogen/Creatinine [Mass ratio] 26.7 mg/mg 10-20 [facility] - Hematology and Cell countsOrdered By: Vinod Mejia on 01-04-2024 MCH (RBC) [Entitic mass] 32.4 pg 27.0-32.0 [facility] MCHC (RBC) [Mass/Vol] 33.9 g/dL 32-36 [facility] Nucleated RBC/100 WBC (Bld) [Ratio] 0 % 0-5 [facility] Platelet mean volume (Bld) [Entitic vol] 10.9 fL 6.2-12.0 [facility] Platelets (Bld) [#/Vol] 215 10*3/uL 150-450 [facility] Mucus LM Ql (Urine sed)Order ed By: Vinod Mejia on 01-04-2024 Mucus Ql (Urine sed) 0 SEEN /hpf [facility] Nitrite Test strip Ql (U)Ord ered By: Vinod Mejia on 01-04-2024 Nitrite Ql (U) Negative Negative [facility] No Panel InformationOrdered By: Vinod Mejia on 01-04-2024 Urine RBC 0 SEEN /hpf 0-5 [facility] Estimated GFR (MDRD) Amer 86 mL/min >60 [facility] Comment on above: GFR Calc Estimated GFR (MDRD) Non-Af Amer 71 mL/min >60 [facility] Comment on above: Non- GFR Calc VLDL Cholesterol 10 mg/dL 5-40 [facility] Protein Test strip Ql (U)Ord ered By: Vinod Mejia on 01-04-2024 Protein Ql (U) Negative Negative [facility] RBC Auto (Bld) [#/Vol]Ordere d By: Vinod Mejia on 01-04-2024 RBC (Bld) [#/Vol] 4.41 10*6/uL 4.6-6.2 [facility] Serum or plasma calcium dwaine urement (mass/volume)Ordered By: Vinod Mejia on 01-04-2024 Calcium [Mass/Vol] 8.6 mg/dL 8.5-10.1 [facility] Serum or plasma creatinine m easurement (mass/volume)Ordered By: Vinod Mejia on 01-04-2024 Creatinine [Mass/Vol] 1.05 mg/dL 0.70-1.30 [facility] Comment on above: The validity of the calculated GFR & GFRAA in patients over 70 years has not been determined. Clinical correlation is essential. Serum or plasma thyroid stim ulating hormone (TSH) measurement (units/volume)Ordered By: Vinod Mejia on 01-04-2024 TSH Qn 2.02 uIU/mL 0.358-3.74 [facility] Serum or plasma urea nitroge n measurement (mass/volume)Ordered By: Vinod Mejia on 01-04-2024 Urea nitrogen [Mass/Vol] 28 mg/dL 7-18 [facility] Squamous epithelial cells de tection in urine sediment by light microscopyOrdered By: Vinod Mejia on 01-04-2024 Epithelial cells.squamous LM Ql (Urine sed) 0 SEEN /hpf 0-5 [facility] Thin prep Papanicolaou smear with manual screeningOrdered By: Vinod Mejia on 01-04-2024 Thin prep Papanicolaou smear with manual screening 3.4 g/dL 3.2-5.0 [facility] Thin prep Papanicolaou smear with manual screening 21 U/L 15-37 [facility] Thin prep Papanicolaou smear with manual screening 5 5-15 [facility] Urine blood detectionOrdered By: Vinod Mejia on 01-04-2024 RBC Ql (U) Negative Negative [facility] Urine clarityOrdered By: Carlos Mejia on 01-04-2024 Clarity (U) Clear Clear [facility] Urine color determinationOrd ered By: Vinod Mejia on 01-04-2024 Color (U) Yellow Yellow [facility] Urine glucose detectionOrder ed By: Vinod Mejia on 01-04-2024 Glucose Ql (U) Normal mg/dl Normal [facility] Urine leukocyte esterase det ection by dipstickOrdered By: Vinod Mejia on 01-04-2024 Leukocyte esterase Test strip Ql (U) Negative Negative [facility] Urine pHOrdered By: Vinod guerra on 01-04-2024 pH (U) 6.5 [pH] 5.0 - 8.0 [facility] Urine sediment bacteria coun t by microscopy (number/high power field)Ordered By: Vinod Mejia on 01-04-2024 Bacteria LM.HPF (Urine sed) [#/Area] 0 /[HPF] None Seen [facility] Urine specific gravity measu rementOrdered By: Vinod Mejia on 01-04-2024 Specific gravity (U) [Rel density] 1.010 1.002-1.030 [facility] Urine urobilinogen measureme ntOrdered By: Vinod Mejia on 01-04-2024 Urobilinogen Ql (U) Normal mg/dl Normal [facility] Absolute lymphocyte countOrd ered By: Vinod Mejia on 09-06-2023 Lymphocytes Auto (Unsp spec) [#/Vol] 1.10 10*3/uL 0.83-4.51 [facility] Basophil percentageOrdered B y: Vinod Mejia on 09-06-2023 Basophil percentage 0 SEEN /hpf 0-5 [facility] Basophils/100 WBC (Bld) 0.7 % 0-1 [facility] Bilirubin [Mass/Vol] 0.80 mg/dL 0.20-1.00 [facility] Comment on above: For patients on eltr ombopag therapy, use of Dimension [place] TBIL is not recommended. Chloride [Moles/Vol] 105 mmol/L 98-107 [facility] Eosinophils/100 WBC (Bld) 2.5 % 0-5 [facility] Glucose [Mass/Vol] 91 mg/dL 74-106 [facility] Neutrophils (Bld) [#/Vol] 3.7 10*3/uL 2.0-7.7 [facility] Neutrophils/100 WBC (Bld) 64.8 % 47-70 [facility] Potassium [Moles/Vol] 4.0 mmol/L 3.5-5.1 [facility] Protein [Mass/Vol] 7.5 g/dL 6.4-8.2 [facility] Sodium [Moles/Vol] 138 mmol/L 136-145 [facility] WBC (Bld) [#/Vol] 5.7 10*3/uL 4.4-11.0 [facility] Bilirubin Test strip Ql (U)O rdered By: Vinod Mejia on 09-06-2023 Bilirubin Ql (U) Negative Negative [facility] Blood erythrocytes count (nu mber/volume)Ordered By: Vinod Mejia on 09-06-2023 RBC (Bld) [#/Vol] 4.58 10*6/uL 4.6-6.2 [facility] Blood hemoglobin measurement (mass/volume)Ordered By: Vinod Mejia on 09-06-2023 Hemoglobin (Bld) [Mass/Vol] 14.7 g/dL 13.0-16.5 [facility] Blood lymphocytes/100 leukoc ytesOrdered By: Vinod Mejia on 09-06-2023 Lymphocytes/100 WBC (Bld) 19.4 % 19-41 [facility] Blood monocytes/100 leukocyt esOrdered By: Vinod Mejia on 09-06-2023 Monocytes/100 WBC (Bld) 12.2 % 0-10 [facility] Blood platelet mean volumeOr dered By: Vinod Mejia on 09-06-2023 Platelet mean volume (Bld) [Entitic vol] 11.4 fL 6.2-12.0 [facility] Determination of erythrocyte mean corpuscular volume (MCV)Ordered By: Vinod Mejia on 09-06-2023 MCV (RBC) [Entitic vol] 95.4 fL 80-94 [facility] Hematocrit Auto (Bld) [Volum e fraction]Ordered By: Vinod Mejia on 09-06-2023 Hematocrit (Bld) [Volume fraction] 43.7 % 40-54 [facility] Ketones Test strip Ql (U)Ord ered By: Vinod Mejia on 09-06-2023 Ketones Ql (U) Negative Negative [facility] - Chemistry and C hemistry - challengeOrdered By: Vinod Mejia on 09-06-2023 ALP [Catalytic activity/Vol] 85 U/L 45-117 [facility] ALT [Catalytic activity/Vol] 21 U/L 16-61 [facility] CO2 [Moles/Vol] 28.0 mmol/L 21.0-32.0 [facility] Globulin (S) [Mass/Vol] 4.0 g/dL 2.2-4.2 [facility] Magnesium [Mass/Vol] 2.4 mg/dL 1.6-2.6 [facility] Natriuretic peptide B (Bld) [Mass/Vol] 798.1 pg/mL 0-100 [facility] Urea nitrogen/Creatinine [Mass ratio] 21.1 mg/mg 10-20 [facility] - Hematology and Cell countsOrdered By: Vinod Mejia on 09-06-2023 Erythrocyte distribution width (RBC) [Entitic vol] 44.4 fL 35.1-43.9 [facility] Erythrocyte distribution width (RBC) [Ratio] 12.7 % 11.6-14.6 [facility] Immature granulocytes/100 WBC (Bld) 0.400 % 0.0-0.9 [facility] Comment on above: IG% - Immature Granu locytes (promyelocytes, myelocytes and metamyelocytes) > 1% indicates that a LEFT SHIFT is Present. MCH (RBC) [Entitic mass] 32.1 pg 27.0-32.0 [facility] Nucleated RBC/100 WBC (Bld) [Ratio] 0 % 0-5 [facility] MCHC Auto (RBC) [Mass/Vol]Or dered By: Vinod Mejia on 09-06-2023 MCHC (RBC) [Mass/Vol] 33.6 g/dL 32-36 [facility] Mucus LM Ql (Urine sed)Order ed By: Vinod Mejia on 09-06-2023 Mucus Ql (Urine sed) 0 SEEN /hpf [facility] Nitrite Test strip Ql (U)Ord ered By: Vinod Mejia on 09-06-2023 Nitrite Ql (U) Negative Negative [facility] No Panel InformationOrdered By: Vinod Mejia on 09-06-2023 Estimated GFR (MDRD) Amer 83 mL/min >60 [facility] Comment on above: GFR Calc Estimated GFR (MDRD) Non-Af Amer 68 mL/min >60 [facility] Comment on above: Non- GFR Calc Platelets bldOrdered By: Carlos Mejia on 09-06-2023 Platelets (Bld) [#/Vol] 249 10*3/uL 150-450 [facility] Protein Test strip Ql (U)Ord ered By: Vinod Mejia on 09-06-2023 Protein Ql (U) Negative Negative [facility] Serum or plasma albumin dwaine urement (mass/volume)Ordered By: Vinod Mejia on 09-06-2023 Albumin [Mass/Vol] 3.5 g/dL 3.2-5.0 [facility] Serum or plasma albumin/glob ulin mass ratioOrdered By: Vinod Mejia on 09-06-2023 Albumin/Globulin [Mass ratio] 0.9 {ratio} 0.9-2.4 [facility] Serum or plasma calcium wdaine urement (mass/volume)Ordered By: Vinod Mejia on 09-06-2023 Calcium [Mass/Vol] 8.7 mg/dL 8.5-10.1 [facility] Serum or plasma creatinine m easurement (mass/volume)Ordered By: Vinod Mejia on 09-06-2023 Creatinine [Mass/Vol] 1.09 mg/dL 0.70-1.30 [facility] Comment on above: The validity of the calculated GFR & GFRAA in patients over 70 years has not been determined. Clinical correlation is essential. Serum or plasma urea nitroge n measurement (mass/volume)Ordered By: Vinod Mejia on 09-06-2023 Urea nitrogen [Mass/Vol] 23 mg/dL 7-18 [facility] Squamous epithelial cells de tection in urine sediment by light microscopyOrdered By: Vinod Mejia on 09-06-2023 Epithelial cells.squamous LM Ql (Urine sed) 0 SEEN /hpf 0-5 [facility] Thin prep Papanicolaou smear with manual screeningOrdered By: Vinod Mejia on 09-06-2023 Thin prep Papanicolaou smear with manual screening 19 U/L 15-37 [facility] Thin prep Papanicolaou smear with manual screening 5 5-15 [facility] Urine blood detectionOrdered By: Vinod Mejia on 09-06-2023 RBC Ql (U) Negative Negative [facility] RBC Ql (U) 0 SEEN /hpf 0-5 [facility] Urine clarityOrdered By: Carlos Mejia on 09-06-2023 Clarity (U) Clear Clear [facility] Urine color determinationOrd ered By: Vinod Mejia on 09-06-2023 Color (U) Straw Yellow [facility] Urine glucose detectionOrder ed By: Vinod Mejia on 09-06-2023 Glucose Ql (U) Normal mg/dl Normal [facility] Urine leukocyte esterase det ection by dipstickOrdered By: Vinod Mejia on 09-06-2023 Leukocyte esterase Test strip Ql (U) Negative Negative [facility] Urine pHOrdered By: Vinod guerra on 09-06-2023 pH (U) 7.0 [pH] 5.0 - 8.0 [facility] Urine sediment bacteria coun t by microscopy (number/high power field)Ordered By: Vinod Mejia on 09-06-2023 Bacteria LM.HPF (Urine sed) [#/Area] 0 /[HPF] None Seen [facility] Urine specific gravity measu rementOrdered By: Vinod Mejia on 09-06-2023 Specific gravity (U) [Rel density] 1.005 1.002-1.030 [facility] Urobilinogen Auto test strip Ql (U)Ordered By: Vinod Mejai on 09-06-2023 Urobilinogen Ql (U) Normal mg/dl Normal [facility] 08-24-2023 JONYN Telephone ([employer]) ---- ALBERTO ZELAYA ([id number]) 1935 M Date Time Provider Department 08/24/23 YANNICK MILLER During your visit today, we recorded the following information about you: Jarvis Kamron PERRY 08/24/2023 11:43 AM Signed Fax received from [facility] asking for Derm pathology. See scanned documents for request. This has been faxed to the office as requested. Allergies As of Date: 08/24/2023 Noted Allergy Reaction IODINE 09/01/2015 2 - Rash Date Reviewed: 04/04/2021 Reviewed by: Colette Read Ma - Fully Assessed Reason for Visit: Release Of Medical Records [2017] Prescriptions as of 08/24/2023 - naproxen (NAPROSYN) 500 mg tablet Take 1 tablet by mouth twice daily as needed (pain/inflammation, take with food.). - cyclobenzaprine (FLEXERIL) 10 mg tablet Take 1 tablet by mouth three times daily as needed for Muscle Spasm. - naproxen (NAPROSYN) 500 mg tablet Take 1 tablet by mouth twice daily as needed. Take with food. - cyclobenzaprine (FLEXERIL) 10 mg tablet Take 1 tablet by mouth three times daily as needed. - lisinopril-hydrochl orothiazide (PRINZIDE,ZESTORETI C) 20-12.5 mg per tablet Take 2 tablets by mouth every morning. 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/15/2010 Essential hypertension, benign [I10] 08/23/2012 Dyspnea, unspecified [R06.00] 06/05/2015 09/14/2016 Mitral valve prolapse [I34.1] 06/05/2015 09/14/2016 Severe mitral regurgitation [I34.0] 06/05/2015 09/14/2016 Situational mixed anxiety and depressive disord*09/01/2015 History of mitral valve replacement [Z95.2] 11/13/2015 Lumbar degenerative disc disease [M51.36] 02/12/2016 Groin strain [S76.219A] 01/05/2018 Brachial neuritis or radiculitis [M54.12] 05/03/2002 Chronic coronary artery disease [I25.10] 05/04/2018 Closed fracture of trochanteric section of femu*05/03/2002 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] 05/03/2002 Hypertension [I10] 05/04/2018 Atrial fibrillation (HCC) [I48.91] 05/04/2018 Thoracic or lumbosacral neuritis or radiculitis* 002 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] 05/03/2002 Encounter Status:Closed by KAMRON OGDEN LPN on 08/24/23 Normal [facility] Absolute lymphocyte countOrd ered By: Vinod Mejia on 06-10-2023 Lymphocytes Auto (Unsp spec) [#/Vol] 1.50 10*3/uL 0.83-4.51 [facility] Basophil percentageOrdered B y: Vinod Mejia on 06-10-2023 Basophil percentage 0 SEEN /hpf 0-5 [facility] Basophils/100 WBC (Bld) 0.7 % 0-1 [facility] Bilirubin [Mass/Vol] 0.50 mg/dL 0.20-1.00 [facility] Comment on above: For patients on eltr ombopag therapy, use of Dimension [place] TBIL is not recommended. Chloride [Moles/Vol] 109 mmol/L 98-107 [facility] Cholesterol [Mass/Vol] 156 mg/dL <200 [facility] Comment on above: <200 mg/dL Desirable 200-240 mg/dL Borderline >240 mg/dL High Risk Eosinophils/100 WBC (Bld) 1.7 % 0-5 [facility] Glucose [Mass/Vol] 87 mg/dL 74-106 [facility] Neutrophils (Bld) [#/Vol] 3.1 10*3/uL 2.0-7.7 [facility] Neutrophils/100 WBC (Bld) 57.2 % 47-70 [facility] Potassium [Moles/Vol] 3.8 mmol/L 3.5-5.1 [facility] Protein [Mass/Vol] 7.4 g/dL 6.4-8.2 [facility] Sodium [Moles/Vol] 141 mmol/L 136-145 [facility] Triglyceride [Mass/Vol] 91 mg/dL <199 [facility] Comment on above: The drugs N-Acetylcy steine and Metamizole may falsely depress this assay.Serum Triglycerides Reference Interval Normal <150 mg/dL Borderline high 150 - 199 mg/dL High 200 - 499 mg/dL Very High > or = 500 mg/dL WBC (Bld) [#/Vol] 5.4 10*3/uL 4.4-11.0 [facility] Bilirubin Test strip Ql (U)O rdered By: Vinod Mejia on 06-10-2023 Bilirubin Ql (U) Negative Negative [facility] Blood erythrocytes count (nu mber/volume)Ordered By: Vinod Mejia on 06-10-2023 RBC (Bld) [#/Vol] 4.32 10*6/uL 4.6-6.2 [facility] Blood hemoglobin measurement (mass/volume)Ordered By: Vinod Mejia on 06-10-2023 Hemoglobin (Bld) [Mass/Vol] 13.9 g/dL 13.0-16.5 [facility] Blood lymphocytes/100 leukoc ytesOrdered By: Vinod Mejia on 06-10-2023 Lymphocytes/100 WBC (Bld) 27.7 % 19-41 [facility] Blood monocytes/100 leukocyt esOrdered By: Vinod Mejia on 06-10-2023 Monocytes/100 WBC (Bld) 12.5 % 0-10 [facility] Blood platelet mean volumeOr dered By: Vinod Mejia on 06-10-2023 Platelet mean volume (Bld) [Entitic vol] 11.2 fL 6.2-12.0 [facility] Determination of erythrocyte mean corpuscular volume (MCV)Ordered By: Vinod Mejia on 06-10-2023 MCV (RBC) [Entitic vol] 97.2 fL 80-94 [facility] Hematocrit Auto (Bld) [Volum e fraction]Ordered By: Vinod Mejia on 06-10-2023 Hematocrit (Bld) [Volume fraction] 42.0 % 40-54 [facility] Ketones Test strip Ql (U)Ord ered By: Vinod Mejia on 06-10-2023 Ketones Ql (U) Negative Negative [facility] Laboratory - Chemistry and C hemistry - challengeOrdered By: Vinod Mejia on 06-10-2023 ALP [Catalytic activity/Vol] 76 U/L 45-117 [facility] ALT [Catalytic activity/Vol] 25 U/L 16-61 [facility] CO2 [Moles/Vol] 25.0 mmol/L 21.0-32.0 [facility] Globulin (S) [Mass/Vol] 3.7 g/dL 2.2-4.2 [facility] Magnesium [Mass/Vol] 2.4 mg/dL 1.6-2.6 [facility] Urea nitrogen/Creatinine [Mass ratio] 24.3 mg/mg 10-20 [facility] Laboratory - Hematology and Cell countsOrdered By: Vinod Mejia on 06-10-2023 Erythrocyte distribution width (RBC) [Entitic vol] 49.3 fL 35.1-43.9 [facility] Erythrocyte distribution width (RBC) [Ratio] 13.7 % 11.6-14.6 [facility] Immature granulocytes/100 WBC (Bld) 0.200 % 0.0-0.9 [facility] Comment on above: IG% - Immature Granu locytes (promyelocytes, myelocytes and metamyelocytes) > 1% indicates that a LEFT SHIFT is Present. MCH (RBC) [Entitic mass] 32.2 pg 27.0-32.0 [facility] Nucleated RBC/100 WBC (Bld) [Ratio] 0 % 0-5 [facility] MCHC Auto (RBC) [Mass/Vol]Or dered By: Vinod Mejia on 06-10-2023 MCHC (RBC) [Mass/Vol] 33.1 g/dL 32-36 [facility] Mucus LM Ql (Urine sed)Order ed By: Vinod Mejia on 06-10-2023 Mucus Ql (Urine sed) 0 SEEN /hpf [facility] Nitrite Test strip Ql (U)Ord ered By: Vinod Mejia on 06-10-2023 Nitrite Ql (U) Negative Negative [facility] No Panel InformationOrdered By: Vinod Mejia on 06-10-2023 Estimated GFR (MDRD) Amer 88 mL/min >60 [facility] Comment on above: GFR Calc Estimated GFR (MDRD) Non-Af Amer 73 mL/min >60 [facility] Comment on above: Non- GFR Calc Thyroid Stimulating Hormone (TSH) 1.87 uIU/mL 0.358-3.74 [facility] Platelets bldOrdered By: Carlos Mejia on 06-10-2023 Platelets (Bld) [#/Vol] 242 10*3/uL 150-450 [facility] Protein Test strip Ql (U)Ord ered By: Vinod Mejia on 06-10-2023 Protein Ql (U) Negative Negative [facility] Serum or plasma albumin dwaine urement (mass/volume)Ordered By: Vinod Mejia on 06-10-2023 Albumin [Mass/Vol] 3.7 g/dL 3.2-5.0 [facility] Serum or plasma albumin/glob ulin mass ratioOrdered By: Vinod Mejia on 06-10-2023 Albumin/Globulin [Mass ratio] 1.0 {ratio} 0.9-2.4 [facility] Serum or plasma calcium dwaine urement (mass/volume)Ordered By: Vinod Mejia on 06-10-2023 Calcium [Mass/Vol] 8.8 mg/dL 8.5-10.1 [facility] Serum or plasma cholesterol in HDL measurement (mass/volume)Ordered By: Vinod Mejia on 06-10-2023 Cholesterol in HDL [Mass/Vol] 57 mg/dL >40 [facility] Comment on above: The drugs N-Acetylcy steine and Metamizole may falsely depress this assay. Reference Range HDL <40 mg/dL Low HDL Cholesterol HDL >or= 60 mg/dL High HDL Cholesterol Serum or plasma cholesterol in VLDL measurement (mass/volume)Ordered By: Vinod Mejia on 06-10-2023 Cholesterol in VLDL [Mass/Vol] 18 mg/dL 5-40 [facility] Serum or plasma creatinine m easurement (mass/volume)Ordered By: Vinod Mejia on 06-10-2023 Creatinine [Mass/Vol] 1.03 mg/dL 0.70-1.30 [facility] Comment on above: The validity of the calculated GFR & GFRAA in patients over 70 years has not been determined. Clinical correlation is essential. Serum or plasma low density lipoprotein (LDL) cholesterol measurement (mass/volume)Ordered By: Vinod Mejia on 06-10-2023 Cholesterol in LDL [Mass/Vol] 81 mg/dL 0-130 [facility] Serum or plasma urea nitroge n measurement (mass/volume)Ordered By: Vinod Mejia on 06-10-2023 Urea nitrogen [Mass/Vol] 25 mg/dL 7-18 [facility] Squamous epithelial cells de tection in urine sediment by light microscopyOrdered By: Vinod Mejia on 06-10-2023 Epithelial cells.squamous LM Ql (Urine sed) 0 SEEN /hpf 0-5 [facility] Thin prep Papanicolaou smear with manual screeningOrdered By: Vinod Mejia on 06-10-2023 Thin prep Papanicolaou smear with manual screening 19 U/L 15-37 [facility] Thin prep Papanicolaou smear with manual screening 7 5-15 [facility] Urine blood detectionOrdered By: Vinod Mejia on 06-10-2023 RBC Ql (U) Negative Negative [facility] RBC Ql (U) 0 SEEN /hpf 0-5 [facility] Urine clarityOrdered By: Carlos Mejia on 06-10-2023 Clarity (U) Clear Clear [facility] Urine color determinationOrd ered By: Vinod Mejia on 06-10-2023 Color (U) Yellow Yellow [facility] Urine glucose detectionOrder ed By: Vinod Mejia on 06-10-2023 Glucose Ql (U) Normal mg/dl Normal [facility] Urine leukocyte esterase det ection by dipstickOrdered By: Vinod Mejia on 06-10-2023 Leukocyte esterase Test strip Ql (U) Negative Negative [facility] Urine pHOrdered By: Vinod guerra on 06-10-2023 pH (U) 6.0 [pH] 5.0 - 8.0 [facility] Urine sediment bacteria coun t by microscopy (number/high power field)Ordered By: Vinod Mejia on 06-10-2023 Bacteria LM.HPF (Urine sed) [#/Area] 0 /[HPF] None Seen [facility] Urine specific gravity measu rementOrdered By: Vinod Mejia on 06-10-2023 Specific gravity (U) [Rel density] 1.010 1.002-1.030 [facility] Urobilinogen Auto test strip Ql (U)Ordered By: Vinod Mejia on 06-10-2023 Urobilinogen Ql (U) Normal mg/dl Normal [facility] Absolute lymphocyte countOrd ered By: Dr. Mejia on 02-15-2023 Lymphocytes Auto (Unsp spec) [#/Vol] 1.37 10*3/uL 0.83-4.51 [facility] Basophil percentageOrdered B y: Dr. Mejia on 02-15-2023 Basophils/100 WBC (Bld) 0.9 % 0-1 [facility] Bilirubin [Mass/Vol] 0.60 mg/dL 0.20-1.00 [facility] Comment on above: For patients on eltr ombopag therapy, use of Dim[place] TBIL is not recommended. Chloride [Moles/Vol] 107 mmol/L 98-107 [facility] Cholesterol [Mass/Vol] 161 mg/dL <200 [facility] Comment on above: <200 mg/dL Desirable 200-240 mg/dL Borderline >240 mg/dL High Risk Eosinophils/100 WBC (Bld) 2.2 % 0-5 [facility] Glucose [Mass/Vol] 83 mg/dL 74-106 [facility] Neutrophils (Bld) [#/Vol] 3.6 10*3/uL 2.0-7.7 [facility] Neutrophils/100 WBC (Bld) 60.5 % 47-70 [facility] Potassium [Moles/Vol] 4.3 mmol/L 3.5-5.1 [facility] Protein [Mass/Vol] 6.9 g/dL 6.4-8.2 [facility] Sodium [Moles/Vol] 139 mmol/L 136-145 [facility] Triglyceride [Mass/Vol] 91 mg/dL <199 [facility] Comment on above: The drugs N-Acetylcy steine and Metamizole may falsely depress this assay.Serum Triglycerides Reference Interval Normal <150 mg/dL Borderline high 150 - 199 mg/dL High 200 - 499 mg/dL Very High > or = 500 mg/dL WBC (Bld) [#/Vol] 5.9 10*3/uL 4.4-11.0 [facility] Blood erythrocytes count (nu mber/volume)Ordered By: Dr. Mejia on 02-15-2023 RBC (Bld) [#/Vol] 4.41 10*6/uL 4.6-6.2 [facility] Blood hemoglobin measurement (mass/volume)Ordered By: Dr. Mejia on 02-15-2023 Hemoglobin (Bld) [Mass/Vol] 14.4 g/dL 13.0-16.5 [facility] Blood lymphocytes/100 leukoc ytesOrdered By: Dr. Mejia on 02-15-2023 Lymphocytes/100 WBC (Bld) 23.3 % 19-41 [facility] Blood monocytes/100 leukocyt esOrdered By: Dr. Mejia on 02-15-2023 Monocytes/100 WBC (Bld) 12.8 % 0-10 [facility] Blood platelet mean volumeOr dered By: Dr. Mejia on 02-15-2023 Platelet mean volume (Bld) [Entitic vol] 11.3 fL 6.2-12.0 [facility] Determination of erythrocyte mean corpuscular volume (MCV)Ordered By: Dr. Mejia on 02-15-2023 MCV (RBC) [Entitic vol] 99.5 fL 80-94 [facility] Hematocrit Auto (Bld) [Volum e fraction]Ordered By: Dr. Mjeia on 02-15-2023 Hematocrit (Bld) [Volume fraction] 43.9 % 40-54 [facility] Laboratory - Chemistry and C hemistry - challengeOrdered By: Dr. Mejia on 02-15-2023 ALP [Catalytic activity/Vol] 68 U/L 45-117 [facility] ALT [Catalytic activity/Vol] 24 U/L 16-61 [facility] CO2 [Moles/Vol] 28.0 mmol/L 21.0-32.0 [facility] Globulin (S) [Mass/Vol] 3.4 g/dL 2.2-4.2 [facility] Natriuretic peptide B (Bld) [Mass/Vol] 569.3 pg/mL 0-100 [facility] Urea nitrogen/Creatinine [Mass ratio] 19.6 mg/mg 10-20 [facility] Laboratory - Hematology and Cell countsOrdered By: Dr. Mejia on 02-15-2023 Erythrocyte distribution width (RBC) [Entitic vol] 47.4 fL 35.1-43.9 [facility] Erythrocyte distribution width (RBC) [Ratio] 12.8 % 11.6-14.6 [facility] Immature granulocytes/100 WBC (Bld) 0.300 % 0.0-0.9 [facility] Comment on above: IG% - Immature Granu locytes (promyelocytes, myelocytes and metamyelocytes) > 1% indicates that a LEFT SHIFT is Present. MCH (RBC) [Entitic mass] 32.7 pg 27.0-32.0 [facility] Nucleated RBC/100 WBC (Bld) [Ratio] 0 % 0-5 [facility] MCHC Auto (RBC) [Mass/Vol]Or dered By: Dr. Mejia on 02-15-2023 MCHC (RBC) [Mass/Vol] 32.8 g/dL 32-36 [facility] No Panel InformationOrdered By: Dr. Mejia on 02-15-2023 Estimated GFR (MDRD) Amer 89 mL/min >60 [facility] Comment on above: GFR Calc Estimated GFR (MDRD) Non-Af Amer 74 mL/min >60 [facility] Comment on above: Non- GFR Calc Platelets bldOrdered By: Dr. Mejia on 02-15-2023 Platelets (Bld) [#/Vol] 229 10*3/uL 150-450 [facility] Serum or plasma albumin dwaine urement (mass/volume)Ordered By: Dr. Mejia on 02-15-2023 Albumin [Mass/Vol] 3.5 g/dL 3.2-5.0 [facility] Serum or plasma albumin/glob ulin mass ratioOrdered By: Dr. Mejia on 02-15-2023 Albumin/Globulin [Mass ratio] 1.0 {ratio} 0.9-2.4 [facility] Serum or plasma calcium dwaine urement (mass/volume)Ordered By: Dr. Mejia on 02-15-2023 Calcium [Mass/Vol] 8.6 mg/dL 8.5-10.1 [facility] Serum or plasma cholesterol in HDL measurement (mass/volume)Ordered By: Dr. Mejia on 02-15-2023 Cholesterol in HDL [Mass/Vol] 58 mg/dL >40 [facility] Comment on above: The drugs N-Acetylcy steine and Metamizole may falsely depress this assay. Reference Range HDL <40 mg/dL Low HDL Cholesterol HDL >or= 60 mg/dL High HDL Cholesterol Serum or plasma cholesterol in VLDL measurement (mass/volume)Ordered By: Dr. Mejia on 02-15-2023 Cholesterol in VLDL [Mass/Vol] 18 mg/dL 5-40 [facility] Serum or plasma creatinine m easurement (mass/volume)Ordered By: Dr. Mejia on 02-15-2023 Creatinine [Mass/Vol] 1.02 mg/dL 0.70-1.30 [facility] Comment on above: The validity of the calculated GFR & GFRAA in patients over 70 years has not been determined. Clinical correlation is essential. Serum or plasma low density lipoprotein (LDL) cholesterol measurement (mass/volume)Ordered By: Dr. Mejia on 02-15-2023 Cholesterol in LDL [Mass/Vol] 85 mg/dL 0-130 [facility] Serum or plasma urea nitroge n measurement (mass/volume)Ordered By: Dr. Mejia on 02-15-2023 Urea nitrogen [Mass/Vol] 20 mg/dL 7-18 [facility] Thin prep Papanicolaou smear with manual screeningOrdered By: Dr. Mejia on 02-15-2023 Thin prep Papanicolaou smear with manual screening 21 U/L 15-37 [facility] Thin prep Papanicolaou smear with manual screening 4 5-15 [facility] Basophil percentageOrdered B y: Dr. Mejia on 11-03-2022 Basophil percentage < 0.9 mg/dL 0.70-1.30 [facility] No Panel InformationOrdered By: Dr. Mejia on 11-03-2022 Bedside Estimated GFR (eGFR) > 60.0000 mL/min >60 [facility] Absolute lymphocyte countOrd ered By: Dr. Mejia on 09-24-2022 Lymphocytes Auto (Unsp spec) [#/Vol] 1.08 10*3/uL 0.83-4.51 [facility] Basophil percentageOrdered B y: Dr. Mejia on 09-24-2022 Basophil percentage 0-5 SEEN /hpf 0-5 [facility] Basophils/100 WBC (Bld) 0.7 % 0-1 [facility] Bilirubin [Mass/Vol] 0.60 mg/dL 0.20-1.00 [facility] Comment on above: For patients on eltr ombopag therapy, use of Dim[place] TBIL is not recommended. Chloride [Moles/Vol] 106 mmol/L 98-107 [facility] Cholesterol [Mass/Vol] 160 mg/dL <200 [facility] Comment on above: <200 mg/dL Desirable 200-240 mg/dL Borderline >240 mg/dL High Risk Eosinophils/100 WBC (Bld) 0.7 % 0-5 [facility] Glucose [Mass/Vol] 80 mg/dL 74-106 [facility] Neutrophils (Bld) [#/Vol] 3.6 10*3/uL 2.0-7.7 [facility] Neutrophils/100 WBC (Bld) 66.7 % 47-70 [facility] Potassium [Moles/Vol] 4.3 mmol/L 3.5-5.1 [facility] Protein [Mass/Vol] 7.0 g/dL 6.4-8.2 [facility] Sodium [Moles/Vol] 141 mmol/L 136-145 [facility] Triglyceride [Mass/Vol] 87 mg/dL <199 [facility] Comment on above: The drugs N-Acetylcy steine and Metamizole may falsely depress this assay.Serum Triglycerides Reference Interval Normal <150 mg/dL Borderline high 150 - 199 mg/dL High 200 - 499 mg/dL Very High > or = 500 mg/dL WBC (Bld) [#/Vol] 5.5 10*3/uL 4.4-11.0 [facility] Bilirubin Test strip Ql (U)O rdered By: Dr. Mejia on 09-24-2022 Bilirubin Ql (U) Negative Negative [facility] Blood erythrocytes count (nu mber/volume)Ordered By: Dr. Mejia on 09-24-2022 RBC (Bld) [#/Vol] 4.28 10*6/uL 4.6-6.2 [facility] Blood hemoglobin measurement (mass/volume)Ordered By: Dr. Mejia on 09-24-2022 Hemoglobin (Bld) [Mass/Vol] 13.7 g/dL 13.0-16.5 [facility] Blood lymphocytes/100 leukoc ytesOrdered By: Dr. Mejia on 09-24-2022 Lymphocytes/100 WBC (Bld) 19.8 % 19-41 [facility] Blood monocytes/100 leukocyt esOrdered By: Dr. Mejia on 09-24-2022 Monocytes/100 WBC (Bld) 11.9 % 0-10 [facility] Blood platelet mean volumeOr dered By: Dr. Mejia on 09-24-2022 Platelet mean volume (Bld) [Entitic vol] 11.9 fL 6.2-12.0 [facility] Determination of erythrocyte mean corpuscular volume (MCV)Ordered By: Dr. Mejia on 09-24-2022 MCV (RBC) [Entitic vol] 96.5 fL 80-94 [facility] Hematocrit Auto (Bld) [Volum e fraction]Ordered By: Dr. Mejia on 09-24-2022 Hematocrit (Bld) [Volume fraction] 41.3 % 40-54 [facility] Ketones Test strip Ql (U)Ord ered By: Dr. Mejia on 09-24-2022 Ketones Ql (U) 15 mg/dl Negative [facility] Laboratory - Chemistry and C hemistry - challengeOrdered By: Dr. Mejia on 09-24-2022 ALP [Catalytic activity/Vol] 80 U/L 45-117 [facility] ALT [Catalytic activity/Vol] 25 U/L 16-61 [facility] CO2 [Moles/Vol] 29.0 mmol/L 21.0-32.0 [facility] Free T4 [Mass/Vol] 0.97 ng/dL 0.76-1.46 [facility] Globulin (S) [Mass/Vol] 3.4 g/dL 2.2-4.2 [facility] Magnesium [Mass/Vol] 2.2 mg/dL 1.6-2.6 [facility] Urea nitrogen/Creatinine [Mass ratio] 22.1 mg/mg 10-20 [facility] Laboratory - Hematology and Cell countsOrdered By: Dr. Mejia on 09-24-2022 Erythrocyte distribution width (RBC) [Entitic vol] 48.7 fL 35.1-43.9 [facility] Erythrocyte distribution width (RBC) [Ratio] 13.7 % 11.6-14.6 [facility] Immature granulocytes/100 WBC (Bld) 0.200 % 0.0-0.9 [facility] Comment on above: IG% - Immature Granu locytes (promyelocytes, myelocytes and metamyelocytes) > 1% indicates that a LEFT SHIFT is Present. MCH (RBC) [Entitic mass] 32.0 pg 27.0-32.0 [facility] Nucleated RBC/100 WBC (Bld) [Ratio] 0 % 0-5 [facility] MCHC Auto (RBC) [Mass/Vol]Or dered By: Dr. Mejia on 09-24-2022 MCHC (RBC) [Mass/Vol] 33.2 g/dL 32-36 [facility] Mucus LM Ql (Urine sed)Order ed By: Dr. Mejia on 09-24-2022 Mucus Ql (Urine sed) 0 SEEN /hpf [facility] Center Nitrite Test strip Ql (U)Ord ered By: Dr. Mejia on 09-24-2022 Nitrite Ql (U) Negative Negative [facility] No Panel InformationOrdered By: Dr. Mejia on 09-24-2022 Estimated GFR (MDRD) Amer 87 mL/min >60 [facility] Comment on above: GFR Calc Estimated GFR (MDRD) Non-Af Amer 72 mL/min >60 [facility] Comment on above: Non- GFR Calc Thyroid Stimulating Hormone (TSH) 1.90 uIU/mL 0.358-3.74 [facility] Platelets bldOrdered By: Dr. Mejia on 09-24-2022 Platelets (Bld) [#/Vol] 219 10*3/uL 150-450 [facility] Protein Test strip Ql (U)Ord ered By: Dr. Mejia on 09-24-2022 Protein Ql (U) Negative Negative [facility] Serum or plasma albumin dwaine urement (mass/volume)Ordered By: Dr. Mejia on 09-24-2022 Albumin [Mass/Vol] 3.6 g/dL 3.2-5.0 [facility] Serum or plasma albumin/glob ulin mass ratioOrdered By: Dr. Mejia on 09-24-2022 Albumin/Globulin [Mass ratio] 1.1 {ratio} 0.9-2.4 [facility] Serum or plasma calcium dwaine urement (mass/volume)Ordered By: Dr. Mejia on 09-24-2022 Calcium [Mass/Vol] 9.0 mg/dL 8.5-10.1 [facility] Serum or plasma cholesterol in HDL measurement (mass/volume)Ordered By: Dr. Mejia on 09-24-2022 Cholesterol in HDL [Mass/Vol] 62 mg/dL >40 [facility] Comment on above: The drugs N-Acetylcy steine and Metamizole may falsely depress this assay. Reference Range HDL <40 mg/dL Low HDL Cholesterol HDL >or= 60 mg/dL High HDL Cholesterol Serum or plasma cholesterol in VLDL measurement (mass/volume)Ordered By: Dr. Mejia on 09-24-2022 Cholesterol in VLDL [Mass/Vol] 17 mg/dL 5-40 [facility] Serum or plasma creatinine m easurement (mass/volume)Ordered By: Dr. Mejia on 09-24-2022 Creatinine [Mass/Vol] 1.04 mg/dL 0.70-1.30 [facility] Comment on above: The validity of the calculated GFR & GFRAA in patients over 70 years has not been determined. Clinical correlation is essential. Serum or plasma low density lipoprotein (LDL) cholesterol measurement (mass/volume)Ordered By: Dr. Mejia on 09-24-2022 Cholesterol in LDL [Mass/Vol] 81 mg/dL 0-130 [facility] Serum or plasma urea nitroge n measurement (mass/volume)Ordered By: Dr. Mejia on 09-24-2022 Urea nitrogen [Mass/Vol] 23 mg/dL 7-18 [facility] Squamous epithelial cells de tection in urine sediment by light microscopyOrdered By: Dr. Mejia on 09-24-2022 Epithelial cells.squamous LM Ql (Urine sed) 0 SEEN /hpf 0-5 [facility] Thin prep Papanicolaou smear with manual screeningOrdered By: Dr. Mejia on 09-24-2022 Thin prep Papanicolaou smear with manual screening 21 U/L 15-37 [facility] Thin prep Papanicolaou smear with manual screening 6 5-15 [facility] Urine blood detectionOrdered By: Dr. Mejia on 09-24-2022 RBC Ql (U) Negative Negative [facility] RBC Ql (U) 0 SEEN /hpf 0-5 [facility] Urine clarityOrdered By: Dr. Mejia on 09-24-2022 Clarity (U) Clear Clear [facility] Urine color determinationOrd ered By: Dr. Mejia on 09-24-2022 Color (U) Yellow Yellow [facility] Urine glucose detectionOrder ed By: Dr. Mejia on 09-24-2022 Glucose Ql (U) Normal mg/dl Normal [facility] Urine leukocyte esterase det ection by dipstickOrdered By: Dr. Mejia on 09-24-2022 Leukocyte esterase Test strip Ql (U) 25 /ul Negative [facility] Urine pHOrdered By: Dr. Aracelis dias on 09-24-2022 pH (U) 6.5 [pH] 5.0 - 8.0 [facility] Urine sediment bacteria coun t by microscopy (number/high power field)Ordered By: Dr. Mejia on 09-24-2022 Bacteria LM.HPF (Urine sed) [#/Area] 0 /[HPF] None Seen [facility] Urine specific gravity measu rementOrdered By: Dr. Mejia on 09-24-2022 Specific gravity (U) [Rel density] 1.015 1.002-1.030 [facility] Urobilinogen Auto test strip Ql (U)Ordered By: Dr. Mejia on 09-24-2022 Urobilinogen Ql (U) Normal mg/dl Normal [facility] Basic Metabolic Panelon 07- Glucose mass conc 91 mg/dL Normal 83-110 [facility] Comment on above: Performed By: #### B MP ####[address] [address] BUN/Creatinine Ratio 17 mg/mg Normal 7-27 [facility] Comment on above: Performed By: #### B MP ####[address] [address] CO2 26 mmol/L Normal 23-31 [facility] Comment on above: Performed By: #### B MP ####Trudy [address] [address] Creatinine 0.9 mg/dL Normal 0.6-1.2 [facility] Comment on above: Performed By: #### B MP ####[address] [address] Electrolyte Balance 11.0 mEq/L Normal [facility] Comment on above: Performed By: #### B MP ####[address] [address] Calcium 9.1 mg/dL Normal 8.4-10.2 [facility] Comment on above: Performed By: #### B MP ####Trudy [address] [address] Urea nitrogen 15 mg/dL Normal 7-18 [facility] Comment on above: Performed By: #### B MP ####[address] [address] Chloride 104 mmol/L Normal 98-107 [facility] Comment on above: Performed By: #### B MP ####Trudy [address] [address] Potassium molar conc 4.2 mmol/L Normal 3.5-5.1 [facility] Comment on above: Performed By: #### B MP ####[address] [address] Sodium 141 mmol/L Normal 136-146 [facility] Comment on above: Performed By: #### B MP ####Trudy [address] [address] Glomerular Filtration Rate E stimateon 03-15-2017 eGFR (non-black) mL/min/{1.73_m2} Normal [facility] Comment on above: Performed By: #### G FR ####Trudy [address] [address] Result Comment: Joseph wilson mean GFR = 75 mL/min/1.73 sq.m. for ages 70+ years. Chronic Kidney Disease: Less than 60 mL/min/1.73 square metersEnd Stage Renal Disease: Less than 15 mL/min/1.73 square meters HDL Cholesterol Profileon LDL Cholesterol 115 mg/dL Normal 0-130 [facility] Comment on above: Result Comment: LDL is a calculated result and requires a 12-hr fast. LDL Reference Interval: Less than 100 Optimal 100-129 Near or above optimal 130-159 Borderline high risk 160-189 High risk 190 and above Very high risk -------- Performed By: #### L IPID ####Trudy [address] [address] Triglyceride 56 mg/dL Normal 40-150 [facility] Comment on above: Result Comment: Trig lyceride Reference Interval: Less than 150 Normal 150-199 Borderline high risk 200-499 High risk 500 or higher Very high risk ------- Performed By: #### L IPID ####Trudy [address] [address] Cholesterol 196 mg/dL Normal 131-200 [facility] Comment on above: Result Comment: Chol esterol Reference Interval: Less than 200 Desirable 200-239 Borderline high risk 240 and above High risk ------- Performed By: #### L IPID ####Trudy [address] [address] HDL Cholesterol 70 mg/dL Normal 35-90 [facility] Comment on above: Result Comment: HDL Reference Interval: Less than 40 Low - high risk 60 or above Optimal/lowers risk ------- Performed By: #### L IPID ####Trudy [address] [address] Vital Signs Date Time Vital Sign Value Performing Clinician Alesha mcgregor 12-31-2024 09:32-0400 Body height 162.[address] Vinod Mejia MD Work Phone: [facility] 12-31-2024 09:32-0400 Body mass index (BMI) [Ratio] 25.7 kg/m2 Dr. Vinod Mejia MD Work Phone: [facility] 12-31-2024 09:32-0400 Body weight 68.[address] Vinod Mejia MD Work Phone: [facility] 12-31-2024 09:32-0400 Diastolic blood pressure 66 mm[Hg] Dr. Vinod Mejia MD Work Phone: [facility] 12-31-2024 09:32-0400 Heart rate 70 /min Dr. Vinod Mejia MD Work Phone: [facility] 12-31-2024 09:32-0400 Respiratory rate 14 /min Dr. Vinod Mejia MD Work Phone: [facility] 12-31-2024 09:32-0400 SaO2% (BldA) [Mass fraction] 97 % Dr. Vinod Mejia MD Work Phone: [facility] 12-31-2024 09:32-0400 Systolic blood pressure 126 mm[Hg] Dr. Vinod Mejia MD Work Phone: [facility] 11-03-2022 16:11-0500 Body weight 63.[address] Vinod Mejia Work Phone: [facility] 11-03-2022 16:11-0500 Diastolic blood pressure 60 mm[Hg] Dr. Vinod Mejia Work Phone: [facility] 11-03-2022 16:11-0500 Heart rate 78 /min Dr. Vinod Mejia Work Phone: [facility] 11-03-2022 16:11-0500 Respiratory rate 18 /min Dr. Vinod Mejia Work Phone: [facility] 11-03-2022 16:11-0500 Systolic blood pressure 105 mm[Hg] Dr. Vinod Mejia Work Phone: [facility] 11-03-2022 08:36-0500 Body height 162.[address] Vinod Mejia Work Phone: [facility] 10-16-2022 12:29-0500 Body temperature 97.3 [degF] Dr. Vinod Mejia Work Phone: [facility] 10-16-2022 12:29-0500 Diastolic blood pressure 80 mm[Hg] Dr. Vinod Mejia Work Phone: [facility] 10-16-2022 12:29-0500 Heart rate 52 /min Dr. Vinod Mejia Work Phone: [facility] 10-16-2022 12:29-0500 Respiratory rate 16 /min Dr. Vinod Mejia Work Phone: [facility] 10-16-2022 12:29-0500 SaO2% (BldA) [Mass fraction] 97 % Dr. Vinod Mejia Work Phone: [facility] 10-16-2022 12:29-0500 Systolic blood pressure 132 mm[Hg] Dr. Vinod Mejia Work Phone: [facility] 10-09-2022 13:10-0500 Body height 162.[address] Vinod Mejia Work Phone: [facility] 10-09-2022 13:10-0500 Body mass index (BMI) [Ratio] 23.1 kg/m2 Dr. Vinod Mejia Work Phone: [facility] 10-09-2022 13:10-0500 Body temperature 98 [degF] Dr. Vinod Mejia Work Phone: [facility] 10-09-2022 13:10-0500 Body weight 61.[address] Vinod Mejia Work Phone: [facility] 10-09-2022 13:10-0500 Diastolic blood pressure 62 mm[Hg] Dr. Vinod Mejia Work Phone: [facility] 10-09-2022 13:10-0500 Heart rate 83 /min Dr. Vinod Mejia Work Phone: [facility] 10-09-2022 13:10-0500 Respiratory rate 14 /min Dr. Vinod Mejia Work Phone: [facility] 10-09-2022 13:10-0500 SaO2% (BldA) [Mass fraction] 99 % Dr. Vinod Mejia Work Phone: [facility] 10-09-2022 13:10-0500 Systolic blood pressure 108 mm[Hg] Dr. Vinod Mejia Work Phone: [facility] Encounters Encounter Date Encounter Type Care Provider Facility Start: 12-31-2024 End: 12-31-2024 Patient encounter procedure Vinod AGUERO -[facility] Work Phone: Start: 12-31-2024 End: 12-31-2024 ambulatory Vinod Mejia Facility:[facility] Start: 12-28-2024 End: 12-28-[address] Vinod Mejia MD Work Phone: [facility] Work Phone: Start: 12-28-2024 End: 12-28-[address] Vinod Mejia MD -Laboratory Work Phone: Start: 12-28-2024 End: 12-28-2024 ambulatory Vinod Mejia Facility:[facility] Start: 10-31-2024 End: 10-31-2024 ambulatory Olinda Buchanan Facility:[facility] Start: 10-31-2024 End: 10-31-[address] Olinda Buchanan MD -Physical Therapy Work Phone: Start: 09-07-2024 ambulatory Osvaldo Sewell Facility:[facility] Start: 09-07-2024 Non-patient / Non-visit [facility] Rad[facility] Start: 09-07-2024 End: 09-07-[address] Raz Schmitz MD -Cardiovascular Services Work Phone: Start: 09-07-2024 End: 09-07-2024 ambulatory Raz Schmitz Facility:[facility] Start: 07-23-2024 End: 07-23-2024 ambulatory Vinod Mejia Facility:[facility] Start: 07-23-2024 End: 07-23-2024 ambulatory Raz Schmitz Facility:[facility] Start: 06-22-2024 End: 06-22-2024 ambulatory Vinod Mejia Facility:[facility] Start: 01-04-2024 End: 01-04-[address] Vinod Mejia Work Phone: [facility] Work Phone: Start: 01-04-2024 End: 01-04-[address] Vinod Mejia Work Phone: [facility] Start: 12-08-2023 End: 12-08-[address] Vinod Mejia Work Phone: [facility] Work Phone: Start: 12-08-2023 End: 12-08-[address] Vinod Mejia Work Phone: [facility]-Physical Therapy Work Phone: Start: 09-27-2023 Non-patient / Non-visit Dr. Zeynep Mejia Work Phone: [facility] Start: 09-27-2023 End: 09-27-[address] Vinod Mejia Work Phone: [facility] Work Phone: Start: 09-27-2023 End: 09-27-[address] [facility] Start: 09-06-2023 End: 09-06-2023 ambulatory [facility] Work Phone: Start: 09-06-2023 End: 09-06-2023 Patient encounter procedure [facility] Start: 08-24-2023 Telephone encounter Yannick Miller MD Work Phone: General Surgery Comment on above: Release Of Medical R ecords Start: 06-10-2023 End: 06-10-2023 Patient encounter procedure [facility] Start: 02-18-2023 Non-patient / Non-visit Dr. Zeynep Mejia Work Phone: [facility] Start: 02-18-2023 End: 02-18-[address] Vinod Mejia Work Phone: [facility] Work Phone: Start: 02-18-2023 End: 02-18-[address] Vinod Mejia Work Phone: [facility]-Cardiovascular Services Start: 02-15-2023 End: 02-15-[address] Vinod Mejia Work Phone: [facility] Work Phone: Start: 02-15-2023 End: 02-15-[address] Vinod Mejia Work Phone: [facility] Start: 11-03-2022 End: 11-03-[address] Vinod Mejia Work Phone: [facility] Start: 11-03-2022 End: 11-03-[address] Vinod Mejia Work Phone: [facility] Work Phone: Start: 11-03-2022 End: 11-03-[address] Vinod Mejia Work Phone: [facility] Start: 10-16-2022 End: 10-16-[address] Vinod Mejia Work Phone: [facility] Start: 10-09-2022 End: 10-09-[address] Vinod Mejia Work Phone: [facility] Start: 10-06-2022 Non-patient / Non-visit Dr. Zeynep Mejia Work Phone: [facility] Start: 10-06-2022 End: 10-06-[address] Vinod Mejia Work Phone: [facility] Work Phone: Start: 10-06-2022 End: 10-06-[address] Vinod Mejia Work Phone: [facility]-Cardiovascular Services Start: 09-29-2022 End: 01-25-2023 Patient encounter procedure [facility], [facility] Start: 09-24-2022 End: 09-24-2022 ambulatory [facility] Work Phone: Start: 09-24-2022 End: 09-24-2022 Patient encounter procedure [facility] Start: 03-15-2017 End: 03-16-2017 Ambulatory FALGUNI MONROY Facility:[facility] Procedures Date Procedure Procedure Detail Performing Clinician Start: 09-07-2024 Cardiovascular stres s test using pharmacologic stress agent Dr. Vinod Mejia MD Work Phone: Start: 11-03-2022 MRI of brain with contrast Dr. Vinod Mejia Work Phone: Start: 10-06-2022 Radionuclide imaging of perfusion of myocardium under exercise stress Dr. Vinod Mejia Work Phone: Start: 09-29-2022 US scan of thyroid History of coronary artery bypass grafting S/P CABG x 2 Comment on above: PEREYRA to LAD, SVG-OM 08/12/[address] Cabral at [place]; History of coronary artery bypass grafting S/P CABG x 2 Vinod Ruffin TAX COLLECTORHeribertoC Plan of Treatment Date Care Activity Detail Author Start: 05-06-2023 Covid-19 Vaccine ( season) Covid-19 Vaccine ( season) [facility] Start: 05-06-2023 Influenza vaccination Influenza Vacc ine (#1) [facility] Start: 10-05-2022 Diabetes Screening Diabetes Screenin g [facility] Start: 09-05-2022 Advance Directive Discussion Advance Directive Discussion [facility] Start: 10-02-2020 Hepatitis B surface antibody level LDL Cholesterol [facility] Start: 04-29-2019 Urine microalbumin profile DTa P,Tdap,Td Vaccine (2 - Td or Tdap) [facility] Start: 1997 RSV Vaccine (1 - 1-d ose 60+ series) RSV Vaccine (1 - 1-dose 60+ series) [facility] Start: 11-10-1987 Shingrix Vaccine (1 of 2) Lopez grix Vaccine (1 of 2) [facility] Immunizations Immunization Date Immunization Notes Care Provider Orestes maldonado 01-05-2018 pneumococcal conjuga te vaccine, 13 valent Yannick Miller MD Work Phone: [facility] 09-14-2016 influenza virus vacc ine, unspecified formulation Yannick Miller MD Work Phone: [facility] 04-28-2009 pneumococcal polysaccharide vaccine, 23 valent Yannick Miller MD Work Phone: [facility] Work Phone: 04-28-2009 tetanus and diphther ia toxoids, adsorbed, preservative free, for adult use (2 Lf of tetanus toxoid and 2 Lf of diphtheria toxoid) Yannick Miller MD Work Phone: [facility] Work Phone: Payers Date Payer Category Payer Self-pay [id number] 2014 Unknown [id number] 2014 Unknown [employer] H[employer] POS [id number] 2014-Present [phone] [address] [place] [address] O [id number] Unknown [id number] Unknown [id number] Unknown [id number] Unknown [id number] Unknown [id number] Unknown [id number] Unknown [id number] Unknown [id number] Social History Date Type Detail Facility Start: 03-11-2019 End: 11-03-2022 Tobacco smoking status NHIS Unknown if ever smoked [facility] Start: 08-18-2015 None [facility] Start: 08-18-2015 Spouse/ Signif icant Other [facility] Start: 08-18-2015 Non-smoker [facility] Start: 1935 Sex Assigned At Male [facility] Start: 04-01-2011 End: 11-03-2022 Tobacco smoking status NHIS Never smoked tobacco [facility] Start: 04-01-2011 Tobacco use and exposure Smokeless tobacco non-user [facility] Start: 04-04-2021 Alcohol intake 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 (finding) [facility] Start: 08-12-2020 End: 04-04-2021 History of Social function [facility] Start: 08-12-2020 End: 04-04-2021 Tobacco use panel [facility] Adult Depression Screening Assessment 0 [facility] Start: 1935 Sex Assigned At Not on file [facility] Start: 01-02-2025 Sex Male (finding) [facility] Evaluation note 12-31-2024 Note Date & Type Note Facility 12-31-2024 Evaluation note Diagnosis Onset Date Resolution KAPLAN (dyspnea on exertion) acute December 31, 2024 9:25am Cardiomyopathy chronic December 9:25am Chest pain chronic December 31 9:25am Hypertension chronic December 31, 2024 9:25am Paroxysmal atrial fibrillation chronic December 31, 2024 9:25am S/P CABG x 2 chronic December 31, 2024 9:25am [facility] Work Phone: Discharge summary 12-12-2023 Note Date & Type Note Facility 12-12-2023 Discharge summary Note Date/Time December 08, 2023 10:53am [facility] Physical Therapy [facility] [address] [place] [address] [address] [place] [address] / REHABILITATION SERVICES DISCHARGE SUMMARY MR#: [id number] Acct: [id number] Name: ALBERTO ZELAYA Rep #: [id number] : 1935 88 From: Vin Hernandez. ALBER, OCS Referring Dr.: Dr. Vinod Mejia MD Status: REG RCR Insurance: [facility] H[facility] SELF PAY INSURANCE Discharge Summary D/C summary: It has been my pleasure to treat ALBERTO ZELAYA referred by Dr. Vinod Mejia MD, with the diagnosis of PHYSICAL DEBILITY, LOSS OF BALANCE for a total of 9 visit(s). Discharge Date: 12/08/23 Please see the following information for a summary of their discharge status. Subjective Subjective: Doing okay I like to try ex's at home I get periodic back pain Overall Improvement % Improvement: 40 Objective Objective/Function: POSTURE: mild hips knees flexed PALPATION: tender medial lateral joint line GAIT: reciprocal pattern mild slow ck NEURO: denies paresthesia/tingling AROM: 10 -109 left supine flexion ,right 5-112 MMT: right quads 15.6 ,left 34.8 hamstrings right left 19.2 ,right 23.3 ,hip flexion left 23.1 ,right 26.9 ,ankle 4/5 LUMBAR ROM: flexion mod loss ,extension severe loss , side glides mod loss Goals Goal 1:: Patient to be I with HEP Goal Progress: Goal Met Goal 2:: Patient improve sit-stand 30sec by 2-3 reps to improve function strength. Goal Progress: Goal Met Goal 3:: Patient to improve CATSIB by 5 points to improve balance Goal Progress: Goal Met Goal 4:: Patient to improve functional gait assessment score by 5 points to decrease risk of falls Goal Progress: Goal Met Goal 5:: Patient to demonstrate 50% improvement with increase function and endurance Goal Progress: Progressing Plan Plan: d/c HEP D/C Information Discharge Comments: HEP d/c sentence: If there are questions or concerns regarding this patient's physical therapy, please feel free to call me at [phone]. Thank you for the referral of thispatient. Sincerely, Stanley Bonds, PT, Cert MDT, OCS Balance/Gait/Functional tests Balance/Special Test Scores Functional Gait Assessment Score: 24 % Disability: 20.0000 CATSIB Score (Max score 120 seconds): 110 Lower Extremity Functional Score: 43 30 Second Chair Rise Test Seconds: 15 Improvement % Improvement: 40 <Electronically signed by Stanley Bonds PT, Cert. MDT, OCS> 12/12/23 191 CC: Dr. Vinod Mejia MD ~ JORGE Signed [facility] Work Phone: Note 08-24-2023 Telephone Encounter - Kamron Ogden LPN - 08/24/2023 11:41 AM EST Note Date & Type Note Facility 08-24-2023 Miscellaneous Notes Formattin g of this note might be different from the original. Fax received from [employer] asking for Derm pathology. See scanned documents for request. This has been faxed to the office as requested. documented in this encounter [facility] History of Past illness Narrative 06-05-2015 Note Date & Type Note Facility 06-05-2015 History of Past i llness Narrative Problem Noted Date Diagnosed Date Resolved Date Dyspnea, unspecified 06/05/2015 017 Mitral valve prolapse 06/05/20152016 Severe mitral regurgitation 06/05/2015 09/14/2016 documented as of this encounter (statuses as of 08/25/2023) [facility] Evaluation note Note Date & Type Note Facility Evaluation note No assessment information availa [facility] Work Phone: Evaluation note Note Date & Type Note Facility Evaluation note Diagnosis Onset Date Shingles acute [facility] Work Phone: Evaluation note Note Date & Type Note Facility Evaluation note Diagnosis Onset Date Shingles resolved Shingles resolved [id number] acute Cardiomyopathy acute History of mitral valve repair chronic Hypertension [facility] Work Phone: Evaluation note Note Date & Type Note Facility Evaluation note Diagnosis Onset Date [id number] acute Cardiomyopathy acute History of mitral valve repair chronic Hypertension [facility] Work Phone: Reason for referral (narrative) Note Date & Type Note Facility Reason for referral (narrative) No reason for referral information available [facility] Work Phone: Summary Purpose Family History No Family History Records Found Relationship Condition Age at Onset Recorded Date/T tami Unknown Family History?- Unknown August 182014 7:26pm Family History?Cance r, Heart Disease Unknown August 18, 2015 7:26pm Relationship Condition Age at Onset Recorded Date/T tami Unknown Family History?- Unknown August 182014 7:26pm Family History?Cance r, Heart Disease Unknown August 18, 2015 7:26pm Family History?Cance r, Heart Disease Unknown October 09, 2022 12:45pm Relationship Condition Age at Onset Recorded Date/T tami father Malignant neoplasm of colon Unknown Cardiac disease Unknown mother Cerebrovascular accident (CVA) Unknown grandfather Heart failure Unknown brother Malignant neoplasm Unknown brother Cardiac disease Unknown Presence of cardiac pacemaker Unknown Advance Directives No Advanced Directives Records Found Advance Directive Response Recorded Date/ Time Advance Directives No August 2:51pm Living Will No March 11, 2019 1 0:52am Power of Railroad Watchman No March 11, 2019 10:52am Advance Directive Response Recorded Date/ Time Advance Directives No October 09, 2022 12:45pm Living Will No October 09 12:45pm Power of Railroad Watchman No October 09, 2022 12:45pm Advance Directive Response Recorded Date/ Time Advance Directives No October 09, 2022 1:45pm Living Will No October 09 1:45pm Power of Railroad Watchman No October 09, 2022 1:45pm Advance Directive Response Recorded Date/ Time Advance Directives No October 09, 2022 1:45pm Chief Complaint and Reason for Visit Chief Complaint THYROID NODULE Chief Complaint THYROID NODULE SOB CONCERN FOR SHINGLES/NÚÑEZ Reason for Visit Shingles Chief Complaint THYROID NODULE SOB CONCERN FOR SHINGLES/NÚÑEZ 2ND VISIT/SHINGLES FEELS WORSE Other lack of coordination 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 RX WITH PATIENT. October 31, 2024 10:00am 6 M FU December 31, 2024 9:2 5am Reason for Visit Admit Date KAPLAN (dyspnea on exertion) December 31 9:25am Cardiomyopathy December 31, 2024 9:2 5am Chest pain December 31, 2024 9:2 5am Hypertension December 31, 2024 9:2 5am Paroxysmal atrial fibrillation December 9:25am S/P CABG x 2 December 31, 2024 9:2 5am Additional Source Comments (unrecognized sect ion and content) No Status Records FoundNo Status Records FoundNo Status Records Found INFORMATION SOURCE (unrecogn ized section and content) DATE CREATED AUTHOR 03/01/2018 [facility] DATE CREATED AUTHOR AUTHOR'S ORGANIZ ATION 08/25/2023 [facility] DATE CREATED AUTHOR AUTHOR'S ORGANIZ ATION 06/11/2025 [facility] Care Teams (unrecognized sec tion and content) Team Status: Active Member Role Status Dates Dr. Tristan Smith III, MD Family Provider Active Dr. Vinod Mejia MD Primary Care Provider Active Team Status: Inactive Member Role Status Dates Dr. Vinod Mejia MD Primary Care Pr ovider, Attending Provider, Referring Provider Active Team Status: Active Member Role Status Dates Dr. Vinod Mejia MD Primary Care Pr ovider, Attending Provider, Referring Provider Active Team Status: Active Member Role Status Dates Dr. Vinod Mejia MD Primary Care Provider Active Dr. Osvaldo Sewell MD Attending Provider Active Team Status: Inactive Member Role Status Dates Dr. Vinod Mejia MD Primary Care Provider, Referr ing Provider Active Gallo Mauricio PA, PA Attending Provider Active Team Status: Inactive Member Role Status Dates Dr. Vinod Mejia MD Primary Care Provider, Attend ing Provider Active Team Status: Inactive Member Role Status Dates Dr. Vinod Mejia MD Primary Care Provider, Referr ing Provider Active Floyd [facility], PA Attending Provider Active Team Status: Inactive Member Role Status Dates Dr. Vinod Mejia MD Primary Care Provider, Referr ing Provider Active Dr. Osvaldo Sewell MD Attending Provider Active Team Status: Active Member Role Status Dates Dr. Vinod Mejia MD Primary Care Provider Active Dr. Jarret Payan MD Attending Provider Activ e Team Status: Inactive Member Role Status Dates Dr. Vinod Mejia MD Primary Care Provider Active Start: September 07, 2024 End: September 07, 2024 Dr. Raz Schmitz MD Attending Provider Active Start: September 07, 2024 End: September 07, 2024 Dr. Raz Schmitz MD Referring Provider Active Start: September 07, 2024 End: September 07, 2024 Team Status: Active Member Role Status Dates Dr. Vinod Mejia MD Primary Care Provider Active Start: September 07, 2024 Dr. Raz Schmitz MD Referring Provider Active Start: September 07, 2024 Dr. Raz Schmitz MD Other Provider Active St art: September 07, 2024 Dr. Osvaldo Sewell MD Attending Provider Active S tart: September 07, 2024 Team Status: Inactive Member Role Status Dates Dr. Vinod Mejia MD Primary Care Provider Active Start: October 31, 2024 End: October 31, 2024 Dr. Olinda Buchanan MD Attending Provider Active Start: October 31, 2024 End: October 31, 2024 Dr. Olinda Buchanan MD Referring Provider Active Start: October 31, 2024 End: October 31, 2024 Team Status: Inactive Member Role Status Dates Dr. Vinod Mejia MD Primary Care Provider Active Start: December 28, 2024 End: December 28, 2024 Dr. Vinod Mejia MD Attending Provider Active Start: December 28, 2024 End: December 28, 2024 Dr. Vniod Mejia MD Referring Provider Active Start: December 28, 2024 End: December 28, 2024 Team Status: Inactive Member Role Status Dates Dr. Vinod Mejia MD Primary Care Provider Active Start: December 31, 2024 End: December 31, 2024 Dr. Vinod Mejia MD Referring Provider Active Start: December 31, 2024 End: December 31, 2024 Vinod Ruffin NP, TAX COL[employer]OR-C Attending Provider Active S tart: December 31, 2024 End: Casi 28th, 2025 Goals (unrecognized section and content) Goals may be documented in a n alternate sectionGoals may be documented in an alternate sectionGoals may be documented in an alternate sectionGoals may be documented in an alternate sectionGoals may be documented in an alternate sectionGoals may be documented in an alternate sectionGoals may be documented in an alternate sectionGoals may be documented in an alternate sectionGoals may be documented in an alternate sectionGoals may be documented in an alternate section Source Comments (unrecognize d section and content) In the event this informatio n is protected by the Federal Confidentiality of Alcohol and Drug Abuse Patient Records regulations: The Federal rules restrict any use of the information to criminally investigate or prosecute any alcohol or drug abuse patient.[facility] Reason for Visit (unrecogniz ed section and content) Reason Comments Release Of Medical Records FOR RECORDS PERTAINING TO PATIENTS WHO ARE [...] BE BASED ON THE PRIMARY CLINICAL RECORDS. [facility]. provides no warranty or guarantee of the accuracy or completeness of information in this document.
[2025-06-21 12:11] LABS: Anion Gap 9 (5-15); BUN 17 mg/dL (4-19); BUN/Creat Ratio 19.7 RATIO (10-20); Calcium,Total 9.1 mg/dL (7.6-11.0); Carbon Dioxide 26.3 mmol/L (21.0-32.0); Chloride 103 mmol/L (98-108); Estimated Creatinine Clearance 51.88 ml/min (50-250); Glucose 94 mg/dL (70-99); Potassium 4.5 mmol/L (3.3-5.1)
[2025-06-21 12:54] LABS: Internal QC Validated? YES +Cl - CLEAR BKGD; Record Kit Lot#, Mono 16251077
[2025-06-21 13:14] VITALS: BP 163/87; PULSE 62; RESP 18; O2SAT 95
[2025-06-21 13:34] VITALS: BP 163/87; PULSE 63; RESP 18; TEMP 36.8; O2SAT 97
== END 2025-06-21 13:47 | disposition home or self-care (01) ==
PROVIDERS: Emergency Provider Emergency Medicine; PCP Family Medicine; Visit Provider Emergency Medicine
DX: J02.9 Acute pharyngitis, unspecified (principal); K12.2 Cellulitis and abscess of mouth; I25.10 Atherosclerotic heart disease of native coronary artery without angina pectoris; Z95.1 Presence of aortocoronary bypass graft
CPT/HCPCS: 70490; 80048; 85025; 86308; 87070; 99283; A4216